=== PATIENT | male | born 1950 | race Caucasian/White ===

== ENCOUNTER → 2016-06-30 | Outpatient (CLI) | payer MEDICARE, OTHER ==
--- NOTE | 2016-06-30 12:24 | XR ---
EXAMINATION TYPE: XR lumbosacral spine min 4V DATE OF EXAM: 06/30/2016 12:19 PM CLINICAL HISTORY: pain COMPARISON: NONE TECHNIQUE: Frontal, lateral, and oblique images of the lumbar spine are obtained. FINDINGS: There are 5 lumbar type vertebral bodies identified. The lumbar spine shows satisfactory alignment without evidence of acute fracture or dislocation. Vertebral body heights are within normal limits. Severe multilevel degenerative disc disease and spondylosis. Severe facet joint arthropathy identified. The overlying soft tissue appears unremarkable. IMPRESSION: No acute fracture or dislocation is seen in the lumbar spine.ICD 10 NO FRACTURE, INITIAL EVALUATION
--- NOTE | 2016-06-30 12:29 | XR ---
EXAMINATION TYPE: XR abdomen 1V DATE OF EXAM: 06/30/2016 12:19 PM COMPARISON: NONE HISTORY: Pain TECHNIQUE: Single supine KUB image of the abdomen is obtained FINDINGS: Small bowel demonstrates no evidence for dilatation or air fluid levels. Gas and fecal material is seen in non-distended colon. No convincing evidence for pneumoperitoneum. No unusual calcifications. The lung bases are clear. The osseous structures are intact. IMPRESSION: 1. Overall nonobstructive bowel gas pattern.
== END ==
LOC: RADXRMAIN 11:07
PROVIDERS: ATTEND Family Medicine
DX: R10.9 Unspecified abdominal pain (principal); M54.5 Low back pain
CPT/HCPCS: 72110; 74000

== ENCOUNTER 2018-11-04 21:49 | Inpatient (IN) | payer MEDICARE, OTHER ==
[2018-11-04] MEDS ORDERED: SODIUM CHLORIDE 0.9% 500 ML 500 ML IV STA (22:54)
--- NOTE | 2018-11-04 23:24 | ED ---
Nausea/Vomiting/Diarrhea HPI - General Source: patient Mode of arrival: ambulatory Limitations: no limitations <Jo Santamaria - Last Filed: 11/05/18 03:33> <Tash Sanchez - Last Filed: 11/05/18 05:34> - General Chief complaint: Nausea/Vomiting/Diarrhea Stated complaint: Abd pain Time Seen by Provider: 11/04/18 22:04 - History of Present Illness Initial comments: 68-year-old male patient presents to the emergency department today for evaluation of diarrhea 2 weeks. Patient states that he has been having watery bowel movements several times daily. He states that sometimes they are red in color. Denies any melena. States that whenever he eats he will immediately get abdominal cramping and have a bowel movement. Patient denies any fever or chills with this. Denies any nausea or vomiting. He denies any recent travel or sick contacts. He denies any antibiotic use in the last 2-3 months. Patient states he did stop taking his medications when the pain and diarrhea started. Does have history of colon cancer with bowel resection. He is also reporting increased swelling to the bilateral lower extremities with redness and skin changes. Patient denies any recent rash, shortness breath, chest pain, back pain, numbness, tingling, dizziness, weakness, hematuria, dysuria, urinary urgency, urinary frequency, headache, visual changes, or any other complaints. (Jo Santamaria) - Related Data Home Medications Medication Instructions Recorded Confirmed amLODIPine [Norvasc] 10 mg PO DAILY 09/03/13 11/04/18 Pravastatin Sodium [Pravachol] 20 mg PO HS 03/21/14 11/04/18 Sodium Bicarbonate Tab 650 mg PO BID 07/15/14 11/04/18 Calcium Acetate [Phoslo] 667 mg PO TID 11/04/18 11/04/18 Carvedilol [Coreg] 6.25 mg PO BID 11/04/18 11/04/18 Ergocalciferol (Vitamin D2) 50,000 unit PO Q7D 11/04/18 11/04/18 [Drisdol] Timolol 0.5% Ophth Soln [Timoptic 1 drop BOTH EYES BID 11/04/18 11/04/18 0.5% Ophth Soln] Torsemide [Demadex] 20 mg PO DAILY 11/04/18 11/04/18 glipiZIDE XL [Glucotrol Xl] 5 mg PO BID-W/MEALS 11/04/18 11/04/18 Allergies Allergy/AdvReac Type Severity Reaction Status Date / Time No Known Allergies Allergy Verified 11/04/18 22:40 Review of Systems ROS Other: All systems not noted in ROS Statement are negative. <Jo Santamaria - Last Filed: 11/05/18 03:33> ROS Other: All systems not noted in ROS Statement are negative. <Tash Sanchez - Last Filed: 11/05/18 05:34> ROS Statement: Those systems with pertinent positive or pertinent negative responses have been documented in the HPI. Past Medical History Past Medical History: Diabetes Mellitus, Eye Disorder, Hyperlipidemia, Hypertension, Skin Disorder Additional Past Medical History / Comment(s): wound center pt-wound rt leg , dry skin. Allergic rhinitis History of Any Multi-Drug Resistant Organisms: None Reported Additional Past Surgical History / Comment(s): nasal/sinus. Laser treatment for diabetic retinopathy Past Anesthesia/Blood Transfusion Reactions: No Reported Reaction Past Psychological History: No Psychological Hx Reported Smoking Status: Never smoker Past Alcohol Use History: Occasional Past Drug Use History: None Reported - Past Family History Father Family Medical History: No Reported History <Jo Santamaria - Last Filed: 11/05/18 03:33> General Exam Limitations: no limitations General appearance: alert, in no apparent distress, other (Physical well-developed, well-nourished adult male patient in no acute distress. Vital signs upon presentation are temperature 98.8F, pulse 69, respirations 18, blood pressure 186/79, pulse ox 100% on room air.) Eye exam: Present: normal appearance, PERRL, EOMI. Absent: scleral icterus, conjunctival injection, periorbital swelling ENT exam: Present: normal exam, normal oropharynx, mucous membranes moist Respiratory exam: Present: normal lung sounds bilaterally. Absent: respiratory distress, wheezes, rales, rhonchi, stridor Cardiovascular Exam: Present: regular rate, normal rhythm, normal heart sounds. Absent: systolic murmur, diastolic murmur, rubs, gallop, clicks GI/Abdominal exam: Present: soft, normal bowel sounds. Absent: distended, tenderness, guarding, rebound, rigid Extremities exam: Present: full ROM, normal capillary refill, other (Patient has significant bilateral lower extremity edema, 3+ pitting. There is skin thickening and erythema consistent with chronic venous stasis.). Absent: normal inspection, tenderness, pedal edema, joint swelling, calf tenderness Neurological exam: Present: alert, oriented X3, CN II-XII intact Psychiatric exam: Present: normal affect, normal mood Skin exam: Present: warm, dry, intact, normal color. Absent: rash <Jo Santamaria - Last Filed: 11/05/18 03:33> Course Vital Signs 11/04/18 11/04/18 11/05/18 22:00 22:55 01:00 Temperature 98.8 F Pulse Rate 69 92 86 Respiratory 18 18 19 Rate Blood Pressure 186/79 168/76 164/97 O2 Sat by Pulse 100 100 99 Oximetry 11/05/18 11/05/18 11/05/18 02:00 03:17 03:34 Temperature 98.5 F 98.5 F Pulse Rate 82 91 95 Respiratory 19 18 18 Rate Blood Pressure 172/92 163/74 167/80 O2 Sat by Pulse 100 100 100 Oximetry 11/05/18 11/05/18 11/05/18 04:03 04:04 05:00 Temperature 98.6 F 98.7 F 98.5 F Pulse Rate 89 88 Respiratory 17 19 Rate Blood Pressure 185/81 193/92 O2 Sat by Pulse 100 98 Oximetry 11/05/18 05:28 Temperature Pulse Rate 91 Respiratory 19 Rate Blood Pressure 169/107 O2 Sat by Pulse 98 Oximetry Medical Decision Making - Lab Data Result diagrams: 11/05/18 01:12 11/05/18 00:57 - EKG Data -: EKG Interpreted by Ks <Jo Santamaria - Last Filed: 11/05/18 03:33> - Lab Data Result diagrams: 11/05/18 01:12 11/05/18 00:57 <Tash Sanchez - Last Filed: 11/05/18 05:34> - Medical Decision Making 68-year-old male patient presented to the emergency department today for evaluation of diarrhea 2 weeks. Patient states that he has been having intermittent crampy abdominal pain with this. His symptoms worsened after eating. Physical examination revealed a soft nontender abdomen. 3+ pitting edema to the bilateral lower extremities. Labs reviewed and did reveal elevated white blood cell count at 12.8, hemoglobin 4.9, potassium 6.8, BUN 89, creatinine 5.15. EKG showed normal sinus rhythm with a widened QRS, consistent with previous EKG. Patient was given IV fluid bolus. Potassium correction measures were initiated with insulin, dextrose, calcium, and Kayexalate. I did discuss findings and results with the patient, he does agree to receive blood transfusion. Vital signs are stable. He denies any dizziness but does feel generally weak. He'll be admitted to the hospital for blood transfusion, further monitoring. (Jo Santamaria) I personally saw and evaluated this patient. This is a chronically ill 68-year-old gentleman who stop taking all medications approximately one month ago because he reports they upset his stomach. Today the patient has what appears to be acute on chronic anemia, microcytic anemia with hemoglobin of only 4.9, I performed a rectal examination patient is stool guaiac positive though he doesn't have any significant active bleeding while in the emergency department. Patient's also noted be in acute renal failure. During my evaluation the patient's primary complaint was that he was itchy and has been for a week or 2. I suspect this is due to uremia. The patient is hemodynamically stable in fact he is hypertensive, no tachycardia. At this time I do not feel the patient requires ICU level care and is stable for admission to the floor for IV fluids, blood transfusion, repeat labs in the morning. (Tash Sanchez) - Lab Data Lab Results 11/05/18 11/05/18 11/05/18 Range/Units 00:57 01:12 01:54 WBC 12.8 H (3.8-10.6) k/uL RBC 1.99 L (4.30-5.90) m/uL Hgb 4.9 L* (13.0-17.5) gm/dL Hct 17.6 L* (39.0-53.0) % MCV 88.4 (80.0-100.0) fL MCH 24.4 L (25.0-35.0) pg MCHC 27.6 L (31.0-37.0) g/dL RDW 19.9 H (11.5-15.5) % Plt Count 491 H (150-450) k/uL Neutrophils % 80 % Lymphocytes % 10 % Monocytes % 4 % Eosinophils % 5 % Basophils % 0 % Neutrophils # 10.2 H (1.3-7.7) k/uL Lymphocytes # 1.3 (1.0-4.8) k/uL Monocytes # 0.5 (0-1.0) k/uL Eosinophils # 0.6 (0-0.7) k/uL Basophils # 0.0 (0-0.2) k/uL Hypochromasia Marked Anisocytosis Slight Sodium 142 (137-145) mmol/L Potassium 6.8 H* (3.5-5.1) mmol/L Chloride 117 H (98-107) mmol/L Carbon Dioxide 14 L (22-30) mmol/L Anion Gap 11 mmol/L BUN 89 H (9-20) mg/dL Creatinine 5.15 H (0.66-1.25) mg/dL Est GFR (CKD-EPI)AfAm 12 (>60 ml/min/1.73 sqM) Est GFR (CKD-EPI)NonAf 11 (>60 ml/min/1.73 sqM) Glucose 149 H (74-99) mg/dL Calcium 8.6 (8.4-10.2) mg/dL Total Bilirubin 0.2 (0.2-1.3) mg/dL AST 13 L (17-59) U/L ALT 9 L (21-72) U/L Alkaline Phosphatase 89 (38-126) U/L Total Protein 5.9 L (6.3-8.2) g/dL Albumin 2.9 L (3.5-5.0) g/dL Amylase 39 (30-110) U/L Lipase 271 (23-300) U/L Blood Type O Positive Blood Type Confirm Blood Type Recheck CABO Indicated Antibody Screen NEGATIVE Crossmatch See Detail Spec Expiration Date 11/08/2018235311/05/18 Range/Units 02:07 WBC (3.8-10.6) k/uL RBC (4.30-5.90) m/uL Hgb (13.0-17.5) gm/dL Hct (39.0-53.0) % MCV (80.0-100.0) fL MCH (25.0-35.0) pg MCHC (31.0-37.0) g/dL RDW (11.5-15.5) % Plt Count (150-450) k/uL Neutrophils % % Lymphocytes % % Monocytes % % Eosinophils % % Basophils % % Neutrophils # (1.3-7.7) k/uL Lymphocytes # (1.0-4.8) k/uL Monocytes # (0-1.0) k/uL Eosinophils # (0-0.7) k/uL Basophils # (0-0.2) k/uL Hypochromasia Anisocytosis Sodium (137-145) mmol/L Potassium (3.5-5.1) mmol/L Chloride (98-107) mmol/L Carbon Dioxide (22-30) mmol/L Anion Gap mmol/L BUN (9-20) mg/dL Creatinine (0.66-1.25) mg/dL Est GFR (CKD-EPI)AfAm (>60 ml/min/1.73 sqM) Est GFR (CKD-EPI)NonAf (>60 ml/min/1.73 sqM) Glucose (74-99) mg/dL Calcium (8.4-10.2) mg/dL Total Bilirubin (0.2-1.3) mg/dL AST (17-59) U/L ALT (21-72) U/L Alkaline Phosphatase (38-126) U/L Total Protein (6.3-8.2) g/dL Albumin (3.5-5.0) g/dL Amylase (30-110) U/L Lipase (23-300) U/L Blood Type Blood Type Confirm O Positive Blood Type Recheck Antibody Screen Crossmatch Spec Expiration Date - EKG Data EKG Comments: EKG obtained at [facility] to 16 shows normal sinus rhythm with a widened QRS complex, ventricular rate is 87, CA interval 168, QRS duration 134, QTC 400, QTC 481. (Jo Santamaria) Disposition Decision to Admit Reason: Admit from EC Decision Date: 11/05/18 Decision Time: 03:10 <Jo Santamaria - Last Filed: 11/05/18 03:33> <Tash Sanchez - Last Filed: 11/05/18 05:34> Clinical Impression: Acute on chronic renal failure, Anemia, GI bleed, Hyperkalemia Disposition: ADMITTED IP TO THIS HOSP Condition: Serious
[2018-11-05 01:31] LABS: Anisocytosis Slight; Basophils % (A) 0 %; Eosinophils # (A) 0.6 k/uL (0-0.7); Eosinophils % (A) 5 %; Hypochromasia Marked; Lymphocytes # (A) 1.3 k/uL (1.0-4.8); Lymphocytes % (A) 10 %; MCH 24.4 pg (25.0-35.0); MCHC 27.6 g/dL (31.0-37.0); MCV 88.4 fL (80.0-100.0); Mean Platelet Volume 7.1; Monocytes # (A) 0.5 k/uL (0-1.0); Monocytes % (A) 4 %; Neutrophils # (A) 10.2 k/uL (1.3-7.7); Neutrophils % (A) 80 %; Platelet Count 491 k/uL (150-450); RBC 1.99 m/uL (4.30-5.90); RDW 19.9 % (11.5-15.5); WBC 12.8 k/uL (3.8-10.6)
[2018-11-05 01:33] LABS: HCT 17.6 % (39.0-53.0); HGB 4.9 gm/dL (13.0-17.5)
[2018-11-05 01:33] LABS: Albumin 2.9 g/dL (3.5-5.0); Calcium 8.6 mg/dL (8.4-10.2); Total Bilirubin 0.2 mg/dL (0.2-1.3); Total Protein 5.9 g/dL (6.3-8.2)
[2018-11-05 01:37] LABS: Potassium 6.8 mmol/L (3.5-5.1)
[2018-11-05] MEDS ORDERED: SODIUM CHLORIDE 0.9% 1,000 ML IV ONE (01:38)
[2018-11-05] MEDS ORDERED: CALCIUM GLUCONATE 1 GM in SODIUM CHLORIDE 0.9% 100 ML IVPB ONE (01:38)
[2018-11-05] MEDS ORDERED: INSULIN REGULAR 100 UNIT/ML VIAL IV ONE (01:38)
[2018-11-05] MEDS ORDERED: DEXTROSE 10 % IN WATER 250 ML IV STA (01:38)
[2018-11-05] MEDS ORDERED: SODIUM POLYSTYRENE SULFONATE 15 GM/60 ML BOTTLE PO STA (01:40)
[2018-11-05] MEDS ORDERED: NALOXONE 0.4 MG/ML 1 ML VIAL IV PRN (02:53)
[2018-11-05] MEDS ORDERED: ACETAMINOPHEN TAB 325 MG TAB PO PRN (02:53)
[2018-11-05 03:46] LABS: Amorphous Sediment,Urine Rare /hpf; Appearance,Urine Clear (Clear); Bilirubin,Urine Negative (Negative); Blood,Urine Negative (Negative); Color,Urine Light Yellow; Glucose,Urine (UA) Negative (Negative); Granular Casts,Urine 108 /lpf (0); Ketones,Urine Negative (Negative); Leukocyte Esterase,Urine Negative (Negative); Mucus,Urine Rare /hpf; Nitrite,Urine Negative (Negative); Protein,Urine 1+ (Negative); RBC,Urine 1 /hpf (0-5); Specific Gravity,Urine 1.011 (1.001-1.035); Urobilinogen,Urine <2.0 mg/dL (<2.0); WBC,Urine <1 /hpf (0-5)
[2018-11-05 04:24] LABS: Glucose,Whole Blood 197 mg/dL (75-99)
[2018-11-05] MEDS ORDERED: METOPROLOL TARTRATE 5 MG/5 ML VIAL IVP ONE (05:33)
[2018-11-05] MEDS ORDERED: FUROSEMIDE 10 MG/ML 4 ML VIAL IV STA (07:52)
[2018-11-05 09:16] LABS: Glucose,Whole Blood 158 mg/dL (75-99)
[2018-11-05 09:38] LABS: Albumin 2.6 g/dL (3.5-5.0); Calcium 8.5 mg/dL (8.4-10.2); Total Bilirubin 0.4 mg/dL (0.2-1.3); Total Protein 5.5 g/dL (6.3-8.2)
[2018-11-05 09:43] LABS: Anisocytosis Slight; Basophils % (A) 0 %; Eosinophils # (A) 0.7 k/uL (0-0.7); Eosinophils % (A) 5 %; HCT 21.9 % (39.0-53.0); Hypochromasia Marked; Lymphocytes # (A) 1.4 k/uL (1.0-4.8); Lymphocytes % (A) 11 %; MCH 27.2 pg (25.0-35.0); MCHC 31.4 g/dL (31.0-37.0); MCV 86.5 fL (80.0-100.0); Mean Platelet Volume 7.6; Monocytes # (A) 0.5 k/uL (0-1.0); Monocytes % (A) 4 %; Neutrophils % (A) 78 %; Platelet Count 413 k/uL (150-450); Poikilocytosis Slight; RBC 2.53 m/uL (4.30-5.90); RDW 18.5 % (11.5-15.5); WBC 12.8 k/uL (3.8-10.6)
[2018-11-05 09:45] LABS: Potassium 6.3 mmol/L (3.5-5.1)
[2018-11-05 09:47] LABS: HGB 6.9 gm/dL (13.0-17.5)
--- NOTE | 2018-11-05 12:59 | P.CONS ---
History of Present Illness - Reason for Consult Consult date: 11/05/18 anemia Requesting physician: Sheri Ortiz - Chief Complaint rectal bleeding - History of Present Illness 68-year-old gentleman with a history of diabetes mellitus lower extremity wounds chronic kidney disease hypertension hyperlipidemia colon carcinoma with resection presents with 2 week history of blood-tinged red diarrhea, hematemesis and lower extremity edema. Admission hemoglobin 4.9. MCV 88. Platelet 491. Potassium 6.8. BUN 89. Creatinine 5.1. White count 12.8. Received 2 units of blood current hemoglobin 6.9. Patient states he stopped taking his home medications secondary to indigestion and upset stomach. Denies hematemesis or melena. Afebrile. Recent CBCs to review however hemoglobin in 2015 was 11.7. MCV 87. Denies ETOH no ASA or NSAIDS. No history of EGD/colonoscopy. Review of Systems RConstitutional: Denies fever, chills, sweats, weight gain, or loss. HEENT: Negative for migraines, blurred vision or loss, earaches, drainage, tinnitus, oral mucosal lesions, dysphagia, or odynophagia. Cardiac: Negative for chest pain, arrhythmias, or palpitation. Respiratory: Negative for shortness of breath, hemoptysis, cough, or sputum production. Gastrointestinal: See HPI for pertinent findings. Genitourinary: Negative for hematuria, urgency, frequency, polyuria, dysuria, or penile discharge. Musculoskeletal: Negative for muscle aches, swelling, arthritis, and arthralgias. Neurologic: Negative for stroke or TIA. Endocrine: Negative for thyroid problems. Skin: Negative for rash or itching. Psychiatric: Negative history for depression and anxiety Past Medical History Past Medical History: Cancer, Diabetes Mellitus, Eye Disorder, Hyperlipidemia, Hypertension, Renal Disease, Skin Disorder Additional Past Medical History / Comment(s): NIDDM type II, neuropathy bilateral feet, pt states he has current sores on bilateral lower legs/feet, past diabetic ulcers/venous stasis ulcers legs/feet and L foot cellulitis with 5th toe osteomyelitis in 2014, diabetic retinopathy bilaterally with surgery, bilateral glaucoma, chronic kidney disease, chronic anemia, past colon cancer with surgery-pt cannot recall if he had chemo/radiation, bronchitis, past R elbow fracture, allergic rhinitis. History of Any Multi-Drug Resistant Organisms: None Reported Past Surgical History: Bowel Resection Additional Past Surgical History / Comment(s): Colon resection, laser treatment for diabetic retinopathy, sinus surgery, R anterior lower leg wound debridement. Past Anesthesia/Blood Transfusion Reactions: No Reported Reaction Smoking Status: Never smoker - Past Family History Father Family Medical History: No Reported History Additional Family Medical History / Comment(s): Father was healthy Mother Family Medical History: No Reported History Additional Family Medical History / Comment(s): Mother was healthy Medications and Allergies Home Medications Medication Instructions Recorded Confirmed Type amLODIPine [Norvasc] 10 mg PO DAILY 09/03/13 11/04/18 History Pravastatin Sodium [Pravachol] 20 mg PO HS 03/21/14 11/04/18 History Sodium Bicarbonate Tab 650 mg PO BID 07/15/14 11/04/18 History Calcium Acetate [Phoslo] 667 mg PO TID 11/04/18 11/04/18 History Carvedilol [Coreg] 6.25 mg PO BID 11/04/18 11/04/18 History Ergocalciferol (Vitamin D2) 50,000 unit PO Q7D 11/04/18 11/04/18 History [Drisdol] Timolol 0.5% Ophth Soln [Timoptic 1 drop BOTH EYES BID 11/04/18 11/04/18 History 0.5% Ophth Soln] Torsemide [Demadex] 20 mg PO DAILY 11/04/18 11/04/18 History glipiZIDE XL [Glucotrol Xl] 5 mg PO BID-W/MEALS 11/04/18 11/04/18 History Allergies Allergy/AdvReac Type Severity Reaction Status Date / Time No Known Allergies Allergy Verified 11/04/18 22:40 Physical Exam Vitals: Vital Signs Temp Pulse Resp BP Pulse Ox 11/05/18 08:47 98.6 F 86 20 161/67 99 11/05/18 08:45 98.6 F 86 20 161/67 99 11/05/18 08:00 81 29 H 171/79 99 11/05/18 07:00 98.6 F 71 18 174/82 99 11/05/18 06:30 98.3 F 82 19 172/81 99 11/05/18 06:20 98.7 F 71 18 172/77 98 11/05/18 05:28 91 19 169/107 98 11/05/18 05:00 98.5 F 88 19 193/92 98 11/05/18 04:04 98.7 F 11/05/18 04:03 98.6 F 89 17 185/81 100 11/05/18 03:34 98.5 F 95 18 167/80 100 11/05/18 03:17 98.5 F 91 18 163/74 100 11/05/18 02:00 82 19 172/92 100 11/05/18 01:00 86 19 164/97 99 11/04/18 22:55 92 18 168/76 100 11/04/18 22:00 98.8 F 69 18 186/79 100 Intake and Output 11/04/18 11/05/18 11/05/18 22:59 06:59 14:59 Intake Total 310 310 Output Total 650 Balance 310 -340 Intake: Blood Product 310 310 Rc As-1 Unit 0 310 [id number] Rc As-1 Unit 310 [id number] Output: Urine 650 Other: Weight 90.718 kg General appearance: The patient is alert, oriented, in no acute distress. HET: Head is normocephalic and atraumatic. Pupils are equal and reactive. Oropharynx is clear without lesions. Neck: Supple without lymphadenopathy. Trachea midline. Heart: S1 S2. Regular rate and rhythm. Lungs: No crackles or wheezes are heard. Abdomen: Soft, nontender, nondistended with bowel sounds. No peritoneal signs. No palpable organomegaly or masses. Extremities: Normal skin color and turgor. No cyanosis, rash, ulceration, clubbing, or edema. Radial and pedal pulses are 2/4 bilaterally. Neurological: No focal deficits. Strength and sensation are grossly intact. Results CBC & Chem 7: 11/05/18 09:10 11/05/18 09:10 Labs: Abnormal Lab Results - Last 24 Hours (Table) 11/05/18 11/05/18 11/05/18 Range/Units 00:57 01:12 01:54 WBC 12.8 H (3.8-10.6) k/uL RBC 1.99 L (4.30-5.90) m/uL Hgb 4.9 L* (13.0-17.5) gm/dL Hct 17.6 L* (39.0-53.0) % MCH 24.4 L (25.0-35.0) pg MCHC 27.6 L (31.0-37.0) g/dL RDW 19.9 H (11.5-15.5) % Plt Count 491 H (150-450) k/uL Neutrophils # 10.2 H (1.3-7.7) k/uL Potassium 6.8 H* (3.5-5.1) mmol/L Chloride 117 H (98-107) mmol/L Carbon Dioxide 14 L (22-30) mmol/L BUN 89 H (9-20) mg/dL Creatinine 5.15 H (0.66-1.25) mg/dL Glucose 149 H (74-99) mg/dL POC Glucose (mg/dL) (75-99) mg/dL AST 13 L (17-59) U/L ALT 9 L (21-72) U/L Total Protein 5.9 L (6.3-8.2) g/dL Albumin 2.9 L (3.5-5.0) g/dL Urine Protein (Negative) Amorphous Sediment (None) /hpf Urine Mucus (None) /hpf Crossmatch See Detail 11/05/18 11/05/18 11/05/18 Range/Units 03:34 04:22 09:09 WBC (3.8-10.6) k/uL RBC (4.30-5.90) m/uL Hgb (13.0-17.5) gm/dL Hct (39.0-53.0) % MCH (25.0-35.0) pg MCHC (31.0-37.0) g/dL RDW (11.5-15.5) % Plt Count (150-450) k/uL Neutrophils # (1.3-7.7) k/uL Potassium (3.5-5.1) mmol/L Chloride (98-107) mmol/L Carbon Dioxide (22-30) mmol/L BUN (9-20) mg/dL Creatinine (0.66-1.25) mg/dL Glucose (74-99) mg/dL POC Glucose (mg/dL) 197 H 158 H (75-99) mg/dL AST (17-59) U/L ALT (21-72) U/L Total Protein (6.3-8.2) g/dL Albumin (3.5-5.0) g/dL Urine Protein 1+ H (Negative) Amorphous Sediment Rare H (None) /hpf Urine Mucus Rare H (None) /hpf Crossmatch 11/05/18 11/05/18 Range/Units 09:10 09:10 WBC 12.8 H (3.8-10.6) k/uL RBC 2.53 L (4.30-5.90) m/uL Hgb 6.9 L* D (13.0-17.5) gm/dL Hct 21.9 L (39.0-53.0) % MCH (25.0-35.0) pg MCHC (31.0-37.0) g/dL RDW 18.5 H (11.5-15.5) % Plt Count (150-450) k/uL Neutrophils # 10.0 H (1.3-7.7) k/uL Potassium 6.3 H* (3.5-5.1) mmol/L Chloride 117 H (98-107) mmol/L Carbon Dioxide 17 L (22-30) mmol/L BUN 79 H (9-20) mg/dL Creatinine 4.97 H (0.66-1.25) mg/dL Glucose 144 H (74-99) mg/dL POC Glucose (mg/dL) (75-99) mg/dL AST 15 L (17-59) U/L ALT 16 L (21-72) U/L Total Protein 5.5 L (6.3-8.2) g/dL Albumin 2.6 L (3.5-5.0) g/dL Urine Protein (Negative) Amorphous Sediment (None) /hpf Urine Mucus (None) /hpf Crossmatch Assessment and Plan (1) GI bleed Narrative/Plan: 68-year-old gentleman with a history of chronic kidney disease diabetes hypertension hyperlipidemia colon cancer with resection presents with 2 week history of red blood tinged bowel movements increased upset stomach hematemesis with discontinuance of his home medications for at least a month with underlying normocytic hypochromic anemia component of acute blood loss. Current Visit: Yes Status: Acute Code(s): K92.2 - GASTROINTESTINAL HEMORRHAGE, UNSPECIFIED SNOMED Code(s): 57734232 (2) History of colon cancer Current Visit: Yes Status: Acute Code(s): Z85.038 - PERSONAL HISTORY OF MALIGNANT NEOPLASM OF LARGE INTESTINE SNOMED Code(s): 039750311 (3) Acute on chronic renal failure Current Visit: Yes Status: Acute Code(s): N17.9 - ACUTE KIDNEY FAILURE, UNSPECIFIED; N18.9 - CHRONIC KIDNEY DISEASE, UNSPECIFIED SNOMED Code(s): 334872139 Plan: 1. EGD colonoscopy advised patient declined. Patient was to eat regular diet agitated. CBC every 6 hours blood transfusions as indicated keep hemoglobin greater than 7. Clear liquids. Protonix 40 mg daily. The city weighmaster has discussed the risks, benefits and alternative therapies for the above-mentioned procedure and for both sedation/analgesia as well as necessary blood product administration, if indicated, as they pertain to this patient. The patient has indicated understanding and acceptance of the risks and procedures discussed. Thank you for this kind referral and the opportunity to participate in the care of your patient. This consultation was discussed with Dr. Smart. The impr ession and plan of care have been directed as dictated.
--- NOTE | 2018-11-05 15:14 | P.HPIM ---
History of Present Illness 68-year-old male came in with complaints of diarrhea multiple episodes of GI bleed has been going on for about a week and patient doesn't like to go to hospital because of which she didn't come to hospital patient was also complaining of crampy abdominal pain with bowel movement. Patient denied any hematemesis. Patient denied any melanotic stools. Patient stopping his medications because he believes he is on too many medications. Patient does have history of chronic kidney disease with baseline creatinine of 1.6 and patient came in his creatinine went up to 5.15 with potassium of 6.8 patient is on torsemide unknown whether patient has heart failure history although chest x- ray showed significant bilateral pleural effusions although patient was pretty status is fine at this time because of which I'm not giving him any Lasix in between blood transfusions patient is also receiving IV fluids with bicarbonate. Patient decided capsulate IV insulin potassium has come down to 6.3 patient does have non-anion on a gap and anion gap metabolic acidosis from hyperchloremia and uremia respectively Review of Systems REVIEW OF SYSTEMS: CONSTITUTIONAL: No fever, no malaise, no fatigue. HEENT: No recent visual problems or hearing problems. Denied any sore throat. CARDIOVASCULAR: No chest pain, orthopnea, PND, no palpitations, no syncope. PULMONARY: No shortness of breath, no cough, no hemoptysis. GASTROINTESTINAL: As mentioned above NEUROLOGICAL: No headaches, no weakness, no numbness. HEMATOLOGICAL: Denies any bleeding or petechiae. GENITOURINARY: Denies any burning micturition, frequency, or urgency. MUSCULOSKELETAL/RHEUMATOLOGICAL: Denies any joint pain, swelling, or any muscle pain. ENDOCRINE: Denies any polyuria or polydipsia. The rest of the 14-point review of systems is negative. Past Medical History Past Medical History: Cancer, Diabetes Mellitus, Eye Disorder, Hyperlipidemia, Hypertension, Renal Disease, Skin Disorder Additional Past Medical History / Comment(s): NIDDM type II, neuropathy bilat eral feet, pt states he has current sores on bilateral lower legs/feet, past diabetic ulcers/venous stasis ulcers legs/feet and L foot cellulitis with 5th toe osteomyelitis in 2014, diabetic retinopathy bilaterally with surgery, bilateral glaucoma, chronic kidney disease, chronic anemia, past colon cancer with surgery-pt cannot recall if he had chemo/radiation, bronchitis, past R elbow fracture, allergic rhinitis. History of Any Multi-Drug Resistant Organisms: None Reported Past Surgical History: Bowel Resection Additional Past Surgical History / Comment(s): Colon resection, laser treatment for diabetic retinopathy, sinus surgery, R anterior lower leg wound debridement. Past Anesthesia/Blood Transfusion Reactions: No Reported Reaction Smoking Status: Never smoker - Past Family History Father Family Medical History: No Reported History Additional Family Medical History / Comment(s): Father was healthy Mother Family Medical History: No Reported History Additional Family Medical History / Comment(s): Mother was healthy Medications and Allergies Home Medications Medication Instructions Recorded Confirmed Type amLODIPine [Norvasc] 10 mg PO DAILY 09/03/13 11/04/18 History Pravastatin Sodium [Pravachol] 20 mg PO HS 03/21/14 11/04/18 History Sodium Bicarbonate Tab 650 mg PO BID 07/15/14 11/04/18 History Calcium Acetate [Phoslo] 667 mg PO TID 11/04/18 11/04/18 History Carvedilol [Coreg] 6.25 mg PO BID 11/04/18 11/04/18 History Ergocalciferol (Vitamin D2) 50,000 unit PO Q7D 11/04/18 11/04/18 History [Drisdol] Timolol 0.5% Ophth Soln [Timoptic 1 drop BOTH EYES BID 11/04/18 11/04/18 History 0.5% Ophth Soln] Torsemide [Demadex] 20 mg PO DAILY 11/04/18 11/04/18 History glipiZIDE XL [Glucotrol Xl] 5 mg PO BID-W/MEALS 11/04/18 11/04/18 History Allergies Allergy/AdvReac Type Severity Reaction Status Date / Time No Known Allergies Allergy Verified 11/04/18 22:40 Physical Exam Vitals: Vital Signs Temp Pulse Resp BP Pulse Ox 11/05/18 14:49 98.7 F 74 18 188/86 96 11/05/18 14:00 75 21 170/79 97 11/05/18 13:00 180/159 99 11/05/18 12:00 67 173/81 100 11/05/18 11:00 70 161/98 100 11/05/18 10:00 81 178/81 100 11/05/18 09:00 24 161/67 11/05/18 08:47 98.6 F 86 20 161/67 99 11/05/18 08:45 98.6 F 86 20 161/67 99 11/05/18 08:00 73 24 161/83 98 11/05/18 07:00 98.6 F 71 18 172/81 99 11/05/18 06:30 98.3 F 82 19 172/81 99 11/05/18 06:20 98.7 F 71 18 172/77 98 11/05/18 05:28 91 19 169/107 98 11/05/18 05:00 98.5 F 88 19 193/92 98 11/05/18 04:04 98.7 F 11/05/18 04:03 98.6 F 89 17 185/81 100 11/05/18 03:34 98.5 F 95 18 167/80 100 11/05/18 03:17 98.5 F 91 18 163/74 100 11/05/18 02:00 82 19 172/92 100 11/05/18 01:00 86 19 164/97 99 11/04/18 22:55 92 18 168/76 100 11/04/18 22:00 98.8 F 69 18 186/79 100 Intake and Output 11/05/18 11/05/18 11/05/18 06:59 14:59 22:59 Intake Total 310 1310 Output Total 1800 Balance 310 -490 Intake: Amount of Fluid Infused ( 1000 ml) Blood Product 310 310 Rc As-1 Unit 0 310 [id number] Rc As-1 Unit 310 [id number] Output: Urine 1800 PHYSICAL EXAMINATION: GENERAL: The patient is alert and oriented x3, not in any acute distress. Well developed, well nourished. HEENT: Pupils are round and equally reacting to light. EOMI. No scleral icterus. Does have conjunctival pallor. Normocephalic, atraumatic. No pharyngeal erythema. No thyromegaly. CARDIOVASCULAR: S1 and S2 present. No murmurs, rubs, or gallops. PULMONARY: Chest is clear to auscultation, no wheezing or crackles. ABDOMEN: Soft, nontender, nondistended, normoactive bowel sounds. No palpable organomegaly. MUSCULOSKELETAL: No joint swelling or deformity. EXTREMITIES: No cyanosis, clubbing, does have bilateral pedal edema which appears to be chronic venous stasis. NEUROLOGICAL: Gross neurological examination did not reveal any focal deficits. SKIN: No rashes. Results CBC & Chem 7: 11/05/18 09:10 11/05/18 09:10 Labs: Abnormal Lab Results - Last 24 Hours (Table) 11/05/18 11/05/18 11/05/18 Range/Units 00:57 01:12 01:54 WBC 12.8 H (3.8-10.6) k/uL RBC 1.99 L (4.30-5.90) m/uL Hgb 4.9 L* (13.0-17.5) gm/dL Hct 17.6 L* (39.0-53.0) % MCH 24.4 L (25.0-35.0) pg MCHC 27.6 L (31.0-37.0) g/dL RDW 19.9 H (11.5-15.5) % Plt Count 491 H (150-450) k/uL Neutrophils # 10.2 H (1.3-7.7) k/uL Potassium 6.8 H* (3.5-5.1) mmol/L Chloride 117 H (98-107) mmol/L Carbon Dioxide 14 L (22-30) mmol/L BUN 89 H (9-20) mg/dL Creatinine 5.15 H (0.66-1.25) mg/dL Glucose 149 H (74-99) mg/dL POC Glucose (mg/dL) (75-99) mg/dL AST 13 L (17-59) U/L ALT 9 L (21-72) U/L Total Protein 5.9 L (6.3-8.2) g/dL Albumin 2.9 L (3.5-5.0) g/dL Urine Protein (Negative) Amorphous Sediment (None) /hpf Urine Mucus (None) /hpf Crossmatch See Detail 11/05/18 11/05/18 11/05/18 Range/Units 03:34 04:22 09:09 WBC (3.8-10.6) k/uL RBC (4.30-5.90) m/uL Hgb (13.0-17.5) gm/dL Hct (39.0-53.0) % MCH (25.0-35.0) pg MCHC (31.0-37.0) g/dL RDW (11.5-15.5) % Plt Count (150-450) k/uL Neutrophils # (1.3-7.7) k/uL Potassium (3.5-5.1) mmol/L Chloride (98-107) mmol/L Carbon Dioxide (22-30) mmol/L BUN (9-20) mg/dL Creatinine (0.66-1.25) mg/dL Glucose (74-99) mg/dL POC Glucose (mg/dL) 197 H 158 H (75-99) mg/dL AST (17-59) U/L ALT (21-72) U/L Total Protein (6.3-8.2) g/dL Albumin (3.5-5.0) g/dL Urine Protein 1+ H (Negative) Amorphous Sediment Rare H (None) /hpf Urine Mucus Rare H (None) /hpf Crossmatch 11/05/18 11/05/18 Range/Units 09:10 09:10 WBC 12.8 H (3.8-10.6) k/uL RBC 2.53 L (4.30-5.90) m/uL Hgb 6.9 L* D (13.0-17.5) gm/dL Hct 21.9 L (39.0-53.0) % MCH (25.0-35.0) pg MCHC (31.0-37.0) g/dL RDW 18.5 H (11.5-15.5) % Plt Count (150-450) k/uL Neutrophils # 10.0 H (1.3-7.7) k/uL Potassium 6.3 H* (3.5-5.1) mmol/L Chloride 117 H (98-107) mmol/L Carbon Dioxide 17 L (22-30) mmol/L BUN 79 H (9-20) mg/dL Creatinine 4.97 H (0.66-1.25) mg/dL Glucose 144 H (74-99) mg/dL POC Glucose (mg/dL) (75-99) mg/dL AST 15 L (17-59) U/L ALT 16 L (21-72) U/L Total Protein 5.5 L (6.3-8.2) g/dL Albumin 2.6 L (3.5-5.0) g/dL Urine Protein (Negative) Amorphous Sediment (None) /hpf Urine Mucus (None) /hpf Crossmatch Thrombosis Risk Factor Assmnt - Choose All That Apply Any of the Below Risk Factors Present?: Yes Each Factor Represents 1 point: Obesity (BMI >25) Other Risk Factors: Yes Each Risk Factor Represents 2 Points: Age 61-74 years, Malignancy Other congenital or acquired thrombophilia - If yes, enter type in comment: No Thrombosis Risk Factor Assessment Total Risk Factor Score: 5 Thrombosis Risk Factor Assessment Level: High Risk Assessment and Plan Plan: -Acute blood loss anemia from lower GI bleed most probably patient declined upper GI endoscopy and coloscopy. Will transfuse 2 more units of blood. Patient was a valid by gastroenterology. Patient had history of colon cancer with colonic resection in the past -Acute renal failure: Secondary to prerenal azotemia from GI bleed. Patient does have chronic kidney disease from diabetic nephropathy patient has stage III chronic kidney disease. Patient present creatinine is 4.9 him down from 5.4. -Hyperkalemia secondary to acute renal failure and diuretics did contributed to his renal failure which are being held in spite of bilateral pleural effusions patient may have congestive heart failure although no echocardiogram is available at this time I'll obtain a BNP on him patient does not have any significantly elevated JVD respiratory status is okay. Patient is on bicarbonate drip which will be continued -metabolic acidosis: Patient has both non-anion gap and anionic gap metabolic acidosis from my hyperchloremia and uremia as mentioned above and this is secondary to acute renal failure. -Type 2 diabetes mellitus noncompliant with medication patient will be started on sliding scale insulin hold off on oral hyperglycemic agents -Diabetic retinopathy diabetic neuropathy -Hyperlipidemia -Patient is already on Protonix will hold off on any DVT prophylaxis because of his severe acute GI bleed.
--- NOTE | 2018-11-05 15:24 | XR ---
EXAMINATION TYPE: XR chest 1V DATE OF EXAM: 11/05/2018 COMPARISON: 07/15/2014 HISTORY: 68-year-old male CHF TECHNIQUE: Single frontal view of the chest is obtained. FINDINGS: Heart moderately enlarged. There is a moderate right pleural effusion with underlying opacity. Mild d iffuse interstitial and vascular prominence. IMPRESSION: 1. Correlate for CHF with mild pulmonary vascular congestion. 2. Moderate sized right pleural effusion with adjacent atelectasis and/or consolidation.
[2018-11-05 16:47] LABS: Glucose,Whole Blood 166 mg/dL (75-99)
[2018-11-05 17:12] LABS: Potassium 6.4 mmol/L (3.5-5.1)
[2018-11-05] MEDS: PANTOPRAZOLE 40 MG/10 ML VIAL IV SCH (17:26)
[2018-11-05] MEDS: CARVEDILOL 6.25 MG TAB PO SCH ×2 (17:29→19:29)
[2018-11-05] MEDS: CALCIUM ACETATE 667 MG CAP PO SCH (17:29)
[2018-11-05] MEDS: INSULIN ASPART (NovoLOG) 100 UNIT/ML VIAL SQ SCH ×2 (17:30→21:36)
[2018-11-05] MEDS: DEXTROSE 5% IN WATER 1,000 ML with SODIUM BICARB (1 MEQ/ML) 150 ML IV SCH (19:28)
--- NOTE | 2018-11-05 19:53 | CONS ---
CONSULTATION REASON FOR CONSULTATION: Renal failure and hyperkalemia. HISTORY OF PRESENT ILLNESS: Patient is a 68-year-old male with history of end-stage renal disease and NKF stage 5 with previous creatinine with baseline creatinine about 3-4 mg/dL. The patient has refused renal replacement therapy previously. He he did, however, state that he will think about it if absolutely indicated. This admission patient was admitted with complaints of having blood in his stool. His hemoglobin was 4.9 g/dL in the emergency room. The patient received 2 units packed RBCs. Potassium was elevated at 6.8. The patient denies any nausea or vomiting. He states he is tired of seeing doctors. PAST MEDICAL HISTORY: CKD stage 5 secondary to nephrosclerosis, hyperlipidemia, hypertension, anemia of chronic disease, CKD mineral bone disorder, refusing to take any vitamin D as outpatient. SOCIAL HISTORY: Negative for smoking. Patient lives alone. No history of drug abuse or alcohol abuse. MEDICATIONS: Prior to admission included Pravachol, PhosLo, Norvasc, Coreg, Demadex, Glucotrol. ALLERGIES: None. PHYSICAL EXAMINATION: On examination, patient is currently comfortable. He denies any significant complaints. The blood pressure was 161/67, heart rate 86 per minute. He is afebrile. Examination of the heart S1, S2. Examination of lungs, bilateral breath sounds are heard. Abdomen is soft, obese, nontender. Examination of lower extremities shows chronic skin changes. Edema 1+ bilaterally. LABS SHOW: Hemoglobin 6.9, white cell count 12.8, sodium 141, potassium 6.3, BUN 79, serum creatinine 4.97. UA shows 1+ protein. ASSESSMENT: 1. Chronic kidney disease stage IV to 5, baseline creatinine of about 3.5-4 mg/dL secondary to nephrosclerosis and diabetic nephropathy. Patient is not too keen on renal replacement therapy as outpatient. However, he has not completely refused it as well. 2. Acute kidney injury secondary to severe anemia. Renal function slightly improved. We will continue to monitor. No need for emergent dialysis at this point. We will continue to evaluate on a daily basis. 3. Hyperkalemia associated with acute kidney injury and ongoing GI bleed and metabolic acidosis status post IV treatment as well as Kayexalate. 4. Gastrointestinal bleed being transfused packed RBCs. 5. Metabolic acidosis secondary to renal failure. 6. Chronic kidney disease mineral bone disorder. PLAN: Lasix 40 mg IV push x1. Start the patient on low-dose bicarb drip to help with the hyperkalemia. Repeat potassium this evening and follow up with GI regarding the gastrointestinal bleed. We will assess on a daily basis regarding need for renal replacement therapy. I will also maintain the patient on Aranesp. Thank you for this consultation. We will continue to follow the patient with you during this hospitalization. MMODL / IJN: [id number] /
[2018-11-05 21:15] LABS: Glucose,Whole Blood 192 mg/dL (75-99)
[2018-11-05] MEDS: PRAVASTATIN SODIUM 20 MG TAB PO SCH (21:36)
[2018-11-05] MEDS: TIMOLOL 0.5% OPHTH DROPS 5 ML BTL BOTH EYES SCH (21:37)
[2018-11-06 06:18] LABS: Glucose,Whole Blood 136 mg/dL (75-99)
[2018-11-06] MEDS: INSULIN ASPART (NovoLOG) 100 UNIT/ML VIAL SQ SCH ×4 (06:22→21:27)
[2018-11-06] MEDS: CALCIUM ACETATE 667 MG CAP PO SCH ×3 (06:23→17:26)
[2018-11-06] MEDS: CARVEDILOL 6.25 MG TAB PO SCH ×2 (06:24→17:27)
[2018-11-06 07:47] LABS: Anisocytosis Slight; Basophils % (A) 0 %; Eosinophils # (A) 0.7 k/uL (0-0.7); Eosinophils % (A) 6 %; Hypochromasia Marked; Lymphocytes # (A) 1.2 k/uL (1.0-4.8); Lymphocytes % (A) 10 %; MCH 27.5 pg (25.0-35.0); MCHC 30.9 g/dL (31.0-37.0); MCV 89.2 fL (80.0-100.0); Mean Platelet Volume 7.6; Monocytes # (A) 0.5 k/uL (0-1.0); Monocytes % (A) 5 %; Neutrophils # (A) 9.1 k/uL (1.3-7.7); Neutrophils % (A) 78 %; Platelet Count 362 k/uL (150-450); Poikilocytosis Slight; RBC 2.91 m/uL (4.30-5.90); RDW 17.7 % (11.5-15.5); WBC 11.7 k/uL (3.8-10.6)
[2018-11-06 08:02] LABS: Calcium 8.3 mg/dL (8.4-10.2); Magnesium 1.8 mg/dL (1.6-2.3); Phosphorus 4.4 mg/dL (2.5-4.5)
[2018-11-06] MEDS: PANTOPRAZOLE 40 MG/10 ML VIAL IV SCH (08:48)
[2018-11-06] MEDS: TIMOLOL 0.5% OPHTH DROPS 5 ML BTL BOTH EYES SCH ×2 (08:48→20:55)
[2018-11-06 11:14] VITALS: BMI 30.7
[2018-11-06 11:57] LABS: Glucose,Whole Blood 173 mg/dL (75-99)
[2018-11-06] MEDS ORDERED: SODIUM BICARB 8.4% 50 ML SYR (1 MEQ/ML) IV STA (11:57)
[2018-11-06] MEDS: DEXTROSE 5% IN WATER 1,000 ML with SODIUM BICARB (1 MEQ/ML) 150 ML IV SCH (12:15)
[2018-11-06] MEDS ORDERED: FUROSEMIDE 10 MG/ML 4 ML VIAL IV STA (13:58)
--- NOTE | 2018-11-06 13:59 | P.PN ---
Subjective Progress Note Date: 11/06/18 Principal diagnosis: GI bleeding No further bleeding. Hemoglobin 8. BUN 74. Creatinine 4.4. MCV 89. Platelet 362. Objective - Vital Signs Vital signs: Vital Signs Temp 98.1 F 11/06/18 11:39 Pulse 65 11/06/18 11:39 Resp 20 11/06/18 11:39 BP 150/70 11/06/18 11:39 Pulse Ox 98 11/06/18 11:39 Intake & Output 11/05/18 11/06/18 11/06/18 18:59 06:59 18:59 Intake Total 1310 310 120 Output Total 1802 706 325 Balance -492 -396 -205 Weight 94.5 kg 94.5 kg Intake: Amount of Fluid Infused ( 1000 ml) Oral 120 Blood Product 310 310 Rc As-1 Unit 0 [id number] Rc As-1 Unit 310 [id number] Rc As-1 Unit 0 310 [id number] Output: Urine 1800 700 325 Stool 2 6 Other: Voiding Method Bedside Commode Urinal # Voids 1 1 - Exam General appearance: The patient is alert, oriented, in no acute distress. HET: Head is normocephalic and atraumatic. Pupils are equal and reactive. Oropharynx is clear without lesions. Neck: Supple without lymphadenopathy. Trachea midline. Heart: S1 S2. Regular rate and rhythm. Lungs: No crackles or wheezes are heard. Abdomen: Soft, nontender, nondistended with bowel sounds. No peritoneal signs. No palpable organomegaly or masses. Extremities: Normal skin color and turgor. No cyanosis, rash, ulceration, clubbing, or edema. Radial and pedal pulses are 2/4 bilaterally. Neurological: No focal deficits. Strength and sensation are grossly intact. - Labs CBC & Chem 7: 11/06/18 07:26 11/06/18 07:26 Labs: Abnormal Lab Results - Last 24 Hours (Table) 11/05/18 11/05/18 11/05/18 Range/Units 01:54 16:03 16:45 WBC (3.8-10.6) k/uL RBC (4.30-5.90) m/uL Hgb (13.0-17.5) gm/dL Hct (39.0-53.0) % MCHC (31.0-37.0) g/dL RDW (11.5-15.5) % Neutrophils # (1.3-7.7) k/uL Potassium 6.4 H* (3.5-5.1) mmol/L Chloride 116 H (98-107) mmol/L Carbon Dioxide 16 L (22-30) mmol/L BUN (9-20) mg/dL Creatinine (0.66-1.25) mg/dL Glucose (74-99) mg/dL POC Glucose (mg/dL) 166 H (75-99) mg/dL Calcium (8.4-10.2) mg/dL Crossmatch See Detail 11/05/18 11/06/18 11/06/18 Range/Units 21:14 06:16 07:26 WBC 11.7 H (3.8-10.6) k/uL RBC 2.91 L (4.30-5.90) m/uL Hgb 8.0 L (13.0-17.5) gm/dL Hct 26.0 L (39.0-53.0) % MCHC 30.9 L (31.0-37.0) g/dL RDW 17.7 H (11.5-15.5) % Neutrophils # 9.1 H (1.3-7.7) k/uL Potassium (3.5-5.1) mmol/L Chloride (98-107) mmol/L Carbon Dioxide (22-30) mmol/L BUN (9-20) mg/dL Creatinine (0.66-1.25) mg/dL Glucose (74-99) mg/dL POC Glucose (mg/dL) 192 H 136 H (75-99) mg/dL Calcium (8.4-10.2) mg/dL Crossmatch 11/06/18 11/06/18 Range/Units 07:26 11:56 WBC (3.8-10.6) k/uL RBC (4.30-5.90) m/uL Hgb (13.0-17.5) gm/dL Hct (39.0-53.0) % MCHC (31.0-37.0) g/dL RDW (11.5-15.5) % Neutrophils # (1.3-7.7) k/uL Potassium 6.0 H (3.5-5.1) mmol/L Chloride 117 H (98-107) mmol/L Carbon Dioxide 15 L (22-30) mmol/L BUN 74 H (9-20) mg/dL Creatinine 4.43 H (0.66-1.25) mg/dL Glucose 150 H (74-99) mg/dL POC Glucose (mg/dL) 173 H (75-99) mg/dL Calcium 8.3 L (8.4-10.2) mg/dL Crossmatch Assessment and Plan (1) GI bleed Narrative/Plan: 68-year-old gentleman with a history of chronic kidney disease diabetes hypertension hyperlipidemia colon cancer with resection presents with 2 week history of red blood tinged bowel movements increased upset stomach hematemesis with discontinuance of his home medications for at least a month with underlying normocytic hypochromic anemia component of acute blood loss. Current Visit: Yes Status: Acute Code(s): K92.2 - GASTROINTESTINAL HEMORRHAGE, UNSPECIFIED SNOMED Code(s): 48282102 (2) History of colon cancer Current Visit: Yes Status: Acute Code(s): Z85.038 - PERSONAL HISTORY OF MALIGNANT NEOPLASM OF LARGE INTESTINE SNOMED Code(s): 797426578 (3) Acute on chronic renal failure Current Visit: Yes Status: Acute Code(s): N17.9 - ACUTE KIDNEY FAILURE, UNSPECIFIED; N18.9 - CHRONIC KIDNEY DISEASE, UNSPECIFIED SNOMED Code(s): 51699 3006 Plan: 1. Patient is agreeable for EGD colonoscopy will proceed tomorrow. CBC monitoring. Protonix 40 mg daily. Clear liquid diet. Iron indices pending. The media coordinator has discussed the risks, benefits and alternative therapies for the above-mentioned procedure and for both sedation/analgesia as well as necessary blood product administration, if indicated, as they pertain to this patient. The patient has indicated understanding and acceptance of the risks and procedures discussed. Assessment and plan a care discussed with Dr. Smart
[2018-11-06] MEDS ORDERED: BISACODYL 5 MG TABLET.DR PO STA (14:00)
[2018-11-06] MEDS ORDERED: POLYETHYLENE GLYCOL LYTES SOLN 4,000 ML SOLN.RECON PO ONE (14:00)
--- NOTE | 2018-11-06 15:37 | P.PN ---
Subjective 59-year-old male was admitted with GI bleed patient will undergo upper GI endoscopy and lower GI endoscopy and patient was transfused 4 units of blood and patient's hemoglobin is 8 at this time and patient doesn't have any more GI bleed. Potassium still remains high and patient is receiving capsulate patient does have chronic kidney disease stage IV dialysis was discussed in the past patient declined at that time now patient says he'll consider it patient does have elevated JVD fluid overload with crackles on lung exam and there is significant fluid overload on the chest x-ray although patient clinically appears well obtain a BNP which is elevated a lot of pain echocardiogram discussed with nephrology and decided to start him on Lasix 40 mg IV twice a day patient was using Demadex at home Constitutional: Denied any fatigue denied any fever. Cardio vascular: denied any chest pain, palpitations Gastrointestinal denied any nausea vomiting Pulmonary: Denied any shortness of breath cough Neurologic denied any new focal deficits All inpatient medications were reviewed and appropriate changes in these medications as dictated in the interval history and assessment and plan. Objective - Vital Signs Vital signs: Vital Signs Temp 98.1 F 11/06/18 11:39 Pulse 65 11/06/18 11:39 Resp 20 11/06/18 11:39 BP 150/70 11/06/18 11:39 Pulse Ox 98 11/06/18 11:39 Intake & Output 11/05/18 11/06/18 11/06/18 18:59 06:59 18:59 Intake Total 1310 310 420 Output Total 1802 706 650 Balance -492 -396 -230 Weight 94.5 kg 94.5 kg Intake: Amount of Fluid Infused ( 1000 ml) Oral 420 Blood Product 310 310 Rc As-1 Unit 0 [id number] Rc As-1 Unit 310 [id number] Rc As-1 Unit 0 310 [id number] Output: Urine 1800 700 650 Stool 2 6 Other: Voiding Method Bedside Commode Urinal # Voids 1 1 # Bowel Movements 1 - Exam PHYSICAL EXAMINATION: GENERAL: The patient is alert and oriented x3, not in any acute distress. Well developed, well nourished. HEENT: Pupils are round and equally reacting to light. EOMI. No scleral icterus. Does have conjunctival pallor. Normocephalic, atraumatic. No pharyngeal erythema. No thyromegaly. CARDIOVASCULAR: S1 and S2 present. No murmurs, rubs, or gallops. Does appear to have JVD PULMONARY: Bibasilar crackles ABDOMEN: Soft, nontender, nondistended, normoactive bowel sounds. No palpable organomegaly. MUSCULOSKELETAL: No joint swelling or deformity. EXTREMITIES: No cyanosis, clubbing, does have bilateral pedal edema which appears to be chronic venous stasis. NEUROLOGICAL: Gross neurological examination did not reveal any focal deficits. SKIN: No rashes. - Labs CBC & Chem 7: 11/06/18 07:26 11/06/18 07:26 Labs: Abnormal Lab Results - Last 24 Hours (Table) 11/05/18 11/05/18 11/05/18 Range/Units 01:54 16:03 16:45 WBC (3.8-10.6) k/uL RBC (4.30-5.90) m/uL Hgb (13.0-17.5) gm/dL Hct (39.0-53.0) % MCHC (31.0-37.0) g/dL RDW (11.5-15.5) % Neutrophils # (1.3-7.7) k/uL Potassium 6.4 H* (3.5-5.1) mmol/L Chloride 116 H (98-107) mmol/L Carbon Dioxide 16 L (22-30) mmol/L BUN (9-20) mg/dL Creatinine (0.66-1.25) mg/dL Glucose (74-99) mg/dL POC Glucose (mg/dL) 166 H (75-99) mg/dL Calcium (8.4-10.2) mg/dL Crossmatch See Detail 11/05/18 11/06/18 11/06/18 Range/Units 21:14 06:16 07:26 WBC 11.7 H (3.8-10.6) k/uL RBC 2.91 L (4.30-5.90) m/uL Hgb 8.0 L (13.0-17.5) gm/dL Hct 26.0 L (39.0-53.0) % MCHC 30.9 L (31.0-37.0) g/dL RDW 17.7 H (11.5-15.5) % Neutrophils # 9.1 H (1.3-7.7) k/uL Potassium (3.5-5.1) mmol/L Chloride (98-107) mmol/L Carbon Dioxide (22-30) mmol/L BUN (9-20) mg/dL Creatinine (0.66-1.25) mg/dL Glucose (74-99) mg/dL POC Glucose (mg/dL) 192 H 136 H (75-99) mg/dL Calcium (8.4-10.2) mg/dL Crossmatch 11/06/18 11/06/18 Range/Units 07:26 11:56 WBC (3.8-10.6) k/uL RBC (4.30-5.90) m/uL Hgb (13.0-17.5) gm/dL Hct (39.0-53.0) % MCHC (31.0-37.0) g/dL RDW (11.5-15.5) % Neutrophils # (1.3-7.7) k/uL Potassium 6.0 H (3.5-5.1) mmol/L Chloride 117 H (98-107) mmol/L Carbon Dioxide 15 L (22-30) mmol/L BUN 74 H (9-20) mg/dL Creatinine 4.43 H (0.66-1.25) mg/dL Glucose 150 H (74-99) mg/dL POC Glucose (mg/dL) 173 H (75-99) mg/dL Calcium 8.3 L (8.4-10.2) mg/dL Crossmatch Assessment and Plan Plan: -Acute blood loss anemia from lower GI bleed most probably patient will undergo upper GI endoscopy and coloscopy. Hemoglobin 8 now after 4 units of blood transfusion -Acute renal failure: Secondary to prerenal azotemia from GI bleed. Patient does have chronic kidney disease from diabetic nephropathy patient does has trace face chronic kidney disease, on dialysis was discussed in the past and now by nephrology, patient declined until now and agreeable now to try hemodialysis -Hyperkalemia secondary to acute renal failure, chronic kidney disease a -Possible congestive heart failure ejection fraction is not known will obtain echocardiogram patient appears to be an exacerbation and was started on Lasix as mentioned above -metabolic acidosis: Patient has both non-anion gap and anionic gap metabolic acidosis from my hyperchloremia and uremia as mentioned above and this is secondary to acute renal failure. -Type 2 diabetes mellitus noncompliant with medication patient will be started on sliding scale insulin hold off on oral hyperglycemic agents -Diabetic retinopathy diabetic neuropathy -Hyperlipidemia -Patient is already on Protonix will hold off on any DVT prophylaxis because of his severe acute GI bleed.
[2018-11-06 16:48] LABS: Glucose,Whole Blood 183 mg/dL (75-99)
--- NOTE | 2018-11-06 17:04 | PN ---
PROGRESS NOTE Patient is seen for followup for chronic kidney disease and acute kidney injury. He was admitted to the hospital with GI bleed. Patient was also hyperkalemic. Potassium was 6.8 on initial admission. It is down to 6.0. The patient has not had any active bleeding. This morning he is upset that he is not allowed to eat and is maintained on a liquid diet. The patient has refused endoscopies. On examination, blood pressure this morning 150/70, heart rate 65 per minute. He is afebrile. EXAMINATION OF THE HEART: S1 and S2. EXAMINATION OF LUNGS: Bilateral breath sounds are heard. ABDOMEN: Soft, non-tender, obese. Examination of lower extremities shows edema 1+ bilaterally with chronic skin changes. SENIOR MEDICAL DIRECTOR exam is grossly intact. Labs show sodium 139, potassium 6.0, chloride 117. CO2 is 15, BUN 74, serum creatinine 4.43, hemoglobin 8.0 g/dL. ASSESSMENT: 1. Acute kidney injury secondary to severe anemia, currently improved. 2. Chronic kidney disease, NKF stage V, secondary to nephrosclerosis. Baseline creatinine around 3 to 4 mg/dL. 3. Anemia secondary to gastrointestinal bleed, status post packed RBCs transfusion. 4. Hyperkalemia associated with acute kidney injury, gastrointestinal bleed and acidosis, currently improving. 5. Metabolic acidosis associated with renal failure. Patient was on bicarb drip, which was held last night. I will resume the IV bicarb. 6. Hypertension, currently controlled. 7. Chronic kidney disease mineral bone disorder, maintained on PhosLo. PLAN: Resume IV bicarb. Lasix 40 mg IV push x1 again today. Advance diet if okay with GI. No need for renal replacement therapy at this time. The patient will also be maintained on oral sodium bicarb. I am not sure if he will take it, though. MMODL / IJN: [id number] /
[2018-11-06] MEDS: FUROSEMIDE 10 MG/ML 4 ML VIAL IV SCH (20:55)
[2018-11-06] MEDS: SODIUM BICARBONATE TAB 650 MG TAB PO SCH (20:55)
[2018-11-06 21:14] LABS: Glucose,Whole Blood 129 mg/dL (75-99)
[2018-11-07 02:50] LABS: Iron Saturation 8.22 (15.00-50.00)
[2018-11-07 06:08] LABS: Glucose,Whole Blood 132 mg/dL (75-99)
[2018-11-07] MEDS: INSULIN ASPART (NovoLOG) 100 UNIT/ML VIAL SQ SCH ×4 (06:11→21:11)
[2018-11-07 06:49] LABS: Anisocytosis Slight; HCT 26.7 % (39.0-53.0); HGB 8.4 gm/dL (13.0-17.5); Hypochromasia Moderate; MCH 27.5 pg (25.0-35.0); MCHC 31.4 g/dL (31.0-37.0); MCV 87.7 fL (80.0-100.0); Mean Platelet Volume 7.2; Platelet Count 357 k/uL (150-450); Poikilocytosis Slight; RBC 3.05 m/uL (4.30-5.90); RDW 17.5 % (11.5-15.5); WBC 8.9 k/uL (3.8-10.6)
[2018-11-07 07:03] LABS: Calcium 7.7 mg/dL (8.4-10.2); Potassium 5.5 mmol/L (3.5-5.1)
--- NOTE | 2018-11-07 09:13 | ECHOF ---
Referral Reason:CHF MEASUREMENTS -------- HEIGHT: 177.8 cm WEIGHT: 94.3 kg BP: RVIDd: 3.1 cm (< 3.3) IVSd: 1.1 cm (0.6 - 1.1) LVIDd: 5.3 cm (3.9 - 5.3) LVPWd: 1.2 cm (0.6 - 1.1) IVSs: 1.7 cm LVIDs: 2.3 cm LVPWs: 2.5 cm LAESV Index (A-L): 29.37 ml/m Ao Diam: 3.5 cm (2.0 - 3.7) AV Cusp: 2.1 cm (1.5 - 2.6) LA Diam: 3.4 cm (2.7 - 3.8) MV EXCURSION: 14.577 mm (> 18.000) MV EF SLOPE: 38 mm/s (70 - 150) EPSS: 0.6 cm MV E Get: 1.08 m/s MV DecT: 192 ms MV A Get: 0.39 m/s MV E/A Ratio: 2.77 RAP: 5.00 mmHg RVSP: 33.11 mmHg FINDINGS -------- Sinus rhythm. This was a technically difficult study with suboptimal views. The left ventricular size is normal. There is mild concentric left ventricular hypertrophy. Overa ll left ventricular systolic function is normal with, an EF between 55 - 60 %. The right ventricle is normal in size. The left atrial size is normal. Normal LA size by volume 22+/-6 ml/m2. The right atrial size is normal. Lumason used The aortic valve is trileaflet and appears structurally normal. The mitral valve is normal. The mitral valve leaflets are mildly thickened. There is trace mitral regurgitation. Trace tricuspid regurgitation present. Right ventricular systolic pressure is normal at < 35 mmHg. There is no pulmonic regurgitation present. The aortic root size is normal. IVC Not well visulized. There is a small, generalized pericardial effusion present. CONCLUSIONS -------- 1. Sinus rhythm. 2. This was a technically difficult study with suboptimal views. 3. The left ventricular size is normal. 4. There is mild concentric left ventricular hypertrophy. 5. Overall left ventricular systolic function is normal with, an EF between 55 - 60 %. 6. The right ventricle is normal in size. 7. The left atrial size is normal. 8. Normal LA size by volume 22+/-6 ml/m2. 9. The right atrial size is normal. 10. Lumason used 11. The aortic valve is trileaflet and appears structurally normal. 12. The mitral valve is normal. 13. The mitral valve leaflets are mildly thickened. 14. There is trace mitral regurgitation. 15. Trace tricuspid regurgitation present. 16. Right ventricular systolic pressure is normal at < 35 mmHg. 17. There is no pulmonic regurgitation present. 18. The aortic root size is normal. 19. IVC Not well visulized. 20. There is a small, generalized pericardial effusion present. BEHAVIORIST: Isela Pitts RDCS
[2018-11-07] MEDS: PANTOPRAZOLE 40 MG/10 ML VIAL IV SCH (09:36)
[2018-11-07] MEDS: FUROSEMIDE 10 MG/ML 4 ML VIAL IV SCH ×2 (09:36→19:57)
[2018-11-07] MEDS: TIMOLOL 0.5% OPHTH DROPS 5 ML BTL BOTH EYES SCH ×2 (09:36→19:57)
[2018-11-07] MEDS: CARVEDILOL 6.25 MG TAB PO SCH ×2 (09:49→17:09)
[2018-11-07 11:59] LABS: Glucose,Whole Blood 117 mg/dL (75-99)
[2018-11-07] MEDS ORDERED: PROPOFOL 10 MG/ML 20 ML VIAL IV ONE (12:45)
[2018-11-07] MEDS ORDERED: IV FLUID CONTINUATION 1,000 ML IV ONE (12:48)
--- NOTE | 2018-11-07 13:02 | P.PCN ---
Date of Procedure: 11/07/18 Procedure(s) Performed: BRIEF HISTORY: Patient is a 68-year-old, pleasant, male, admitted hospital with severe symptomatic anemia and hemoglobin of 4.9 requiring 3 units of blood transition. Also had some a hematemesis and the blood-tinged stool.. He was scheduled for an upper endoscopy as well as colonoscopy today, however patient refused to take the prep. His and scheduled for an upper endoscopy. PROCEDURE PERFORMED: Esophagogastroduodenoscopy and biopsy. PREOPERATIVE DIAGNOSIS: Severe anemia and hematemesis. IV sedation per anesthesia. PROCEDURE: After informed consent was obtained, the patient was brought into the endoscopy unit. IV sedation was administered by Anesthesia under continuous monitoring. Initially the Olympus GIF-140 video endoscope was inserted into the mouth. Esophagus intubated without any difficulty. It was gradually advanced into the stomach and duodenum and carefully examined. In the bulb of the duodenum there was a 3-4 cm large deep ulcer with no active bleeding. Margins were somewhat raised and hence biopsies were done from the margin of the ulcer. The scope at this time was withdrawn to the stomach, adequately insufflated with air, and upon careful examination, mucosa of the antrum had gastritis and biopsies were done from this area. The, body, cardia and the fundus appeared normal. The scope was then withdrawn into the esophagus. The GE junction was located at 39 cm from the incisors. The esophagus appeared normal. There were no erosions or ulcerations seen and the patient tolerated the procedure well. IMPRESSION: 1. Large duodenal bulbar ulcer measuring at least 3-4 cm with no active bleeding. 2. Mild antral gastritis. RECOMMENDATIONS: The findings of this examination were discussed with the patient as well as his family. He will be continued on Protonix 40 mg twice daily and was advised to avoid NSAIDs. Diet will be advanced as tolerated..
--- NOTE | 2018-11-07 13:03 | P.PN ---
Subjective 59-year-old male was admitted with GI bleed patient will undergo upper GI endoscopy and lower GI endoscopy and patient was transfused 4 units of blood and patient's hemoglobin is 8 at this time and patient doesn't have any more GI bleed. Potassium still remains high and patient is receiving capsulate patient does have chronic kidney disease stage IV dialysis was discussed in the past patient declined at that time now patient says he'll consider it patient does have elevated JVD fluid overload with crackles on lung exam and there is significant fluid overload on the chest x-ray although patient clinically appears well obtain a BNP which is elevated a lot of pain echocardiogram discussed with nephrology and decided to start him on Lasix 40 mg IV twice a day patient was using Demadex at home 11/07/2018 Patient is undergoing upper GI endoscopy patient didn't have a good prep as he noncompliant with recommendations of using GoLYTELY, colonoscopy cannot be done although patient doesn't have any active clinical GI bleed. Patient is still hyponatremic I'm hoping that will improve with IV Lasix possibility of discharge tomorrow Constitutional: Denied any fatigue denied any fever. Cardio vascular: denied any chest pain, palpitations Gastrointestinal denied any nausea vomiting Pulmonary: Denied any shortness of breath cough Neurologic denied any new focal deficits All inpatient medications were reviewed and appropriate changes in these medications as dictated in the interval history and assessment and plan. Objective - Vital Signs Vital signs: Vital Signs Temp 98.4 F 11/07/18 12:00 Pulse 70 11/07/18 12:00 Resp 16 11/07/18 12:00 BP 150/70 11/07/18 12:00 Pulse Ox 97 11/07/18 12:00 Intake & Output 11/06/18 11/07/18 11/07/18 18:59 06:59 18:59 Intake Total 860 1150 100 Output Total 1150 125 Balance -290 1150 -25 Weight 94.5 kg 93.5 kg Intake: IV 100 Intake, IV Titration 550 Amount Dextrose 5% in Water 1, 550 000 ml @ 50 mls/hr IV . Q23H BRIAN with Sodium Bicarb (1 Meq/ml) 150 ml Rx#:[id number] Oral 860 600 Output: Urine 1150 125 Other: Voiding Method Bedside Commode Bedside Commode Urinal Urinal # Voids 1 2 # Bowel Movements 1 2 - Exam PHYSICAL EXAMINATION: GENERAL: The patient is alert and oriented x3, not in any acute distress. Well developed, well nourished. HEENT: Pupils are round and equally reacting to light. EOMI. No scleral icterus. Does have conjunctival pallor. Normocephalic, atraumatic. No pharyngeal erythema. No thyromegaly. CARDIOVASCULAR: S1 and S2 present. No murmurs, rubs, or gallops. Does appear to have JVD PULMONARY: Bibasilar crackles ABDOMEN: Soft, nontender, nondistended, normoactive bowel sounds. No palpable organomegaly. MUSCULOSKELETAL: No joint swelling or deformity. EXTREMITIES: No cyanosis, clubbing, does have bilateral pedal edema which appears to be chronic venous stasis. NEUROLOGICAL: Gross neurological examination did not reveal any focal deficits. SKIN: No rashes. - Labs CBC & Chem 7: 11/07/18 06:03 11/07/18 06:03 Labs: Abnormal Lab Results - Last 24 Hours (Table) 11/06/18 11/06/18 11/06/18 Range/Units 07:26 16:43 21:12 RBC (4.30-5.90) m/uL Hgb (13.0-17.5) gm/dL Hct (39.0-53.0) % RDW (11.5-15.5) % Sodium (137-145) mmol/L Potassium (3.5-5.1) mmol/L Carbon Dioxide (22-30) mmol/L BUN (9-20) mg/dL Creatinine (0.66-1.25) mg/dL Glucose (74-99) mg/dL POC Glucose (mg/dL) 183 H 129 H (75-99) mg/dL Calcium (8.4-10.2) mg/dL Iron 18 L (65-175) ug/dL TIBC 219 L (228-460) ug/dL Iron Saturation 8.22 L (15.00-50.00) 11/07/18 11/07/18 11/07/18 Range/Units 06:03 06:03 06:07 RBC 3.05 L (4.30-5.90) m/uL Hgb 8.4 L (13.0-17.5) gm/dL Hct 26.7 L (39.0-53.0) % RDW 17.5 H (11.5-15.5) % Sodium 136 L (137-145) mmol/L Potassium 5.5 H (3.5-5.1) mmol/L Carbon Dioxide 20 L (22-30) mmol/L BUN 65 H (9-20) mg/dL Creatinine 4.06 H (0.66-1.25) mg/dL Glucose 119 H (74-99) mg/dL POC Glucose (mg/dL) 132 H (75-99) mg/dL Calcium 7.7 L (8.4-10.2) mg/dL Iron (65-175) ug/dL TIBC (228-460) ug/dL Iron Saturation (15.00-50.00) 11/07/18 Range/Units 11:54 RBC (4.30-5.90) m/uL Hgb (13.0-17.5) gm/dL Hct (39.0-53.0) % RDW (11.5-15.5) % Sodium (137-145) mmol/L Potassium (3.5-5.1) mmol/L Carbon Dioxide (22-30) mmol/L BUN (9-20) mg/dL Creatinine (0.66-1.25) mg/dL Glucose (74-99) mg/dL POC Glucose (mg/dL) 117 H (75-99) mg/dL Calcium (8.4-10.2) mg/dL Iron (65-175) ug/dL TIBC (228-460) ug/dL Iron Saturation (15.00-50.00) Assessment and Plan Plan: -Acute blood loss anemia from lower GI bleed most probably patient will undergo upper GI endoscopy . Hemoglobin 8 now after 4 units of blood transfusion -Acute renal failure: Secondary to prerenal azotemia from GI bleed. Patient does have chronic kidney disease from diabetic nephropathy patient does has trace face chronic kidney disease, on dialysis was discussed in the past and now by nephrology, patient declined until now and agreeable now to try hemodialysis -Hyperkalemia secondary to acute renal failure, chronic kidney disease a -Possible congestive heart failure ejection fraction is not known will obtain echocardiogram patient appears to be an exacerbation and was started on Lasix as mentioned above -metabolic acidosis: Patient has both non-anion gap and anionic gap metabolic acidosis from my hyperchloremia and uremia as mentioned above and this is se condary to acute renal failure. -Type 2 diabetes mellitus noncompliant with medication patient will be started on sliding scale insulin hold off on oral hyperglycemic agents -Diabetic retinopathy diabetic neuropathy -Hyperlipidemia -Patient is already on Protonix will hold off on any DVT prophylaxis because of his severe acute GI bleed.
[2018-11-07] MEDS: CALCIUM ACETATE 667 MG CAP PO SCH ×3 (13:41→17:09)
--- NOTE | 2018-11-07 13:41 | XR ---
EXAMINATION TYPE: XR chest 1V DATE OF EXAM: 11/07/2018 COMPARISON: 11/05/2018 HISTORY: Congestive heart failure TECHNIQUE: Single frontal view of the chest is obtained. FINDINGS: There is a persistent moderate right pleural effusion and right basilar airspace disease. Left lung remains well aerated. Cardiomediastinal silhouette is enlarged as seen on the prior. No acu te osseous pathology. Resolution the previously seen pulmonary vascular congestion. IMPRESSION: Similar moderate pleural effusion and right basilar airspace disease. Pulmonary vascular congestion has resolved.
[2018-11-07] MEDS: SODIUM BICARBONATE TAB 650 MG TAB PO SCH ×2 (14:04→19:57)
[2018-11-07 16:44] LABS: Glucose,Whole Blood 155 mg/dL (75-99)
[2018-11-07] MEDS: PRAVASTATIN SODIUM 20 MG TAB PO SCH (19:57)
[2018-11-07 20:39] LABS: Glucose,Whole Blood 182 mg/dL (75-99)
[2018-11-08 06:26] LABS: Glucose,Whole Blood 160 mg/dL (75-99)
[2018-11-08] MEDS: CALCIUM ACETATE 667 MG CAP PO SCH ×2 (06:45→12:18)
[2018-11-08] MEDS: CARVEDILOL 6.25 MG TAB PO SCH (06:45)
[2018-11-08] MEDS: INSULIN ASPART (NovoLOG) 100 UNIT/ML VIAL SQ SCH ×2 (06:46→12:18)
[2018-11-08 07:00] LABS: Anisocytosis Slight; HCT 25.9 % (39.0-53.0); HGB 8.2 gm/dL (13.0-17.5); Hypochromasia Marked; MCH 27.7 pg (25.0-35.0); MCHC 31.7 g/dL (31.0-37.0); MCV 87.5 fL (80.0-100.0); Mean Platelet Volume 7.5; Platelet Count 313 k/uL (150-450); Poikilocytosis Slight; RBC 2.96 m/uL (4.30-5.90); RDW 17.2 % (11.5-15.5); WBC 8.6 k/uL (3.8-10.6)
[2018-11-08 07:05] LABS: Calcium 7.6 mg/dL (8.4-10.2); Potassium 5.6 mmol/L (3.5-5.1)
[2018-11-08] MEDS ORDERED: PANTOPRAZOLE 40 MG TABLET PO SCH (07:30)
[2018-11-08] MEDS ORDERED: SUCRALFATE 1 GM TAB PO SCH (08:15)
--- NOTE | 2018-11-08 08:35 | P.PN ---
Subjective Progress Note Date: 11/08/18 Principal diagnosis: GI bleeding Status post EGD findings of large duodenal ulcer 3-4 cm without active bleeding. Hemoglobin 8.2. No bleeding. Tolerating diet. Objective - Vital Signs Vital signs: Vital Signs Temp 98.3 F 11/07/18 20:00 Pulse 75 11/08/18 04:00 Resp 18 11/08/18 04:00 BP 174/79 11/08/18 04:00 Pulse Ox 98 11/08/18 04:00 Intake & Output 11/07/18 11/08/18 11/08/18 18:59 06:59 18:59 Intake Total 100 842 Output Total 1725 600 Balance -1625 242 Weight 92.6 kg Intake: IV 100 20 Invasive Line 2 20 Oral 822 Output: Urine 1725 600 Other: Voiding Method Bedside Commode Bedside Commode Urinal Urinal # Voids 1 3 # Bowel Movements 1 - Exam General appearance: The patient is alert, oriented, in no acute distress. HET: Head is normocephalic and atraumatic. Pupils are equal and reactive. Oropharynx is clear without lesions. Neck: Supple without lymphadenopathy. Trachea midline. Heart: S1 S2. Regular rate and rhythm. Lungs: No crackles or wheezes are heard. Abdomen: Soft, nontender, nondistended with bowel sounds. No peritoneal signs. No palpable organomegaly or masses. Extremities: Normal skin color and turgor. No cyanosis, rash, ulceration, clubbing, or edema. Radial and pedal pulses are 2/4 bilaterally. Neurological: No focal deficits. Strength and sensation are grossly intact. - Labs CBC & Chem 7: 11/08/18 06:21 11/08/18 06:21 Labs: Abnormal Lab Results - Last 24 Hours (Table) 11/07/18 11/07/18 11/07/18 Range/Units 11:54 16:37 20:37 RBC (4.30-5.90) m/uL Hgb (13.0-17.5) gm/dL Hct (39.0-53.0) % RDW (11.5-15.5) % Sodium (137-145) mmol/L Potassium (3.5-5.1) mmol/L Chloride (98-107) mmol/L Carbon Dioxide (22-30) mmol/L BUN (9-20) mg/dL Creatinine (0.66-1.25) mg/dL Glucose (74-99) mg/dL POC Glucose (mg/dL) 117 H 155 H 182 H (75-99) mg/dL Calcium (8.4-10.2) mg/dL 11/08/18 11/08/18 11/08/18 Range/Units 06:21 06:21 06:23 RBC 2.96 L (4.30-5.90) m/uL Hgb 8.2 L (13.0-17.5) gm/dL Hct 25.9 L (39.0-53.0) % RDW 17.2 H (11.5-15.5) % Sodium 136 L (137-145) mmol/L Potassium 5.6 H (3.5-5.1) mmol/L Chloride 108 H (98-107) mmol/L Carbon Dioxide 20 L (22-30) mmol/L BUN 68 H (9-20) mg/dL Creatinine 4.48 H (0.66-1.25) mg/dL Glucose 150 H (74-99) mg/dL POC Glucose (mg/dL) 160 H (75-99) mg/dL Calcium 7.6 L (8.4-10.2) mg/dL Microbiology - Last 24 Hours (Table) 11/07/18 18:28 Stool Culture - Preliminary Stool Assessment and Plan (1) Duodenal ulcer Current Visit: Yes Status: Acute Code(s): K26.9 - DUODENAL ULCER, UNSP ACUTE OR CHRONIC, W/O HEMOR OR PERF SNOMED Code(s): 70156958 (2) GI bleed Current Visit: Yes Status: Acute Code(s): K92.2 - GASTROINTESTINAL HEMORRHAGE, UNSPECIFIED SNOMED Code(s): 89405174 (3) History of colon cancer Current Visit: Yes Status: Acute Code(s): Z85.038 - PERSONAL HISTORY OF MALIGNANT NEOPLASM OF LARGE INTESTINE SNOMED Code(s): 833001378 (4) Acute on chronic renal failure Current Visit: Yes Status: Acute Code(s): N17.9 - ACUTE KIDNEY FAILURE, UNSPECIFIED; N18.9 - CHRONIC KIDNEY DISEASE, UNSPECIFIED SNOMED Code(s): 565674396 Plan: 1 Protonix 40 mg daily. Carafate 1 g before meals twice a day. CBC monitoring. Diet as tolerated. Return to office in 3-4 weeks for reevaluation. Assessment and plan a care discussed with Dr. Smart
[2018-11-08] MEDS ORDERED: FUROSEMIDE 20 MG TAB PO SCH (09:00)
[2018-11-08] MEDS ORDERED: DARBEPOETIN ALFA 60 MCG/0.3 ML SYRINGE SQ SCH (09:00)
[2018-11-08] MEDS: TIMOLOL 0.5% OPHTH DROPS 5 ML BTL BOTH EYES SCH (09:03)
[2018-11-08] MEDS: SODIUM BICARBONATE TAB 650 MG TAB PO SCH (09:03)
--- NOTE | 2018-11-08 09:18 | PN ---
PROGRESS NOTE DATE OF SERVICE: 11/07/2018 The patient was seen for followup for chronic kidney disease and acute kidney injury. He was admitted with GI bleed. Initially, patient had refused the endoscopy. However, he will be going down to endoscopy this afternoon. The patient's renal function has improved. He was acidotic. He was maintained on bicarb drip overnight. This morning he denies any significant complaints. PHYSICAL EXAMINATION: On examination, blood pressure is 149/69, heart rate 79 per minute. Patient is afebrile. EXAMINATION OF THE HEART: S1, S2. EXAMINATION OF LUNGS: Decreased breath sounds at the bases. Abdomen is soft, obese, nontender. Examination of the lower extremities shows chronic skin changes bilaterally; 1+ edema is noted bilaterally. SUPERVISOR FORMING DEPARTMENT exam is grossly intact. LABS: Labs show sodium 136, potassium 5.5, CO2 is 20, BUN 65, serum creatinine 4.06, hemoglobin 8.4 g/dL. ASSESSMENT: 1. Acute kidney injury secondary to severe anemia, currently nonoliguric and improving. 2. Chronic kidney disease NKF stage 5, secondary to nephrosclerosis and ischemic nephropathy. We will discuss renal replacement therapy again as outpatient. Previously patient had refused any kind of dialysis. However, at this time he seems agreeable to start when indicated. At this time, patient does not need to start renal replacement therapy. 3. Severe anemia secondary to gastrointestinal bleed, scheduled for endoscopy today. 4. Volume overload maintained on IV Lasix. 5. Severe metabolic acidosis, non gap secondary to renal failure, status post IV bicarb. 6. Hyperkalemia associated with acute kidney injury, metabolic acidosis, gastrointestinal bleed, currently improving. PLAN: DC IV bicarb. Maintain patient on oral sodium bicarb. Continue the IV Lasix for one more day. Maintain patient on Aranesp. Continue with phosphate binders in the form of PhosLo and repeat labs in a.m. MMODL / IJN: [id number] /
[2018-11-08 12:04] LABS: Glucose,Whole Blood 147 mg/dL (75-99)
--- NOTE | 2018-11-08 12:24 | PN ---
PROGRESS NOTE The patient is seen for followup for chronic kidney disease and acute kidney injury. He was admitted to the hospital with GI bleed. The patient has been transfused packed RBCs. Endoscopy from yesterday showed evidence of large duodenal ulcer. The patient wants to go home today. PHYSICAL EXAMINATION: On examination, blood pressure 151/76, heart rate 85 per minute. He is afebrile. EXAMINATION OF THE HEART: S1 and S2. EXAMINATION OF THE LUNGS: Decreased breath sounds at the bases. Abdomen is soft, nontender. EXAMINATION OF THE LOWER EXTREMITIES: Chronic skin changes, chronic edema bilaterally seems to have improved. LABS: Labs show sodium 136, potassium 5.6, chloride 108, CO2 is 20, BUN 68, serum creatinine 4.48, hemoglobin 8.2 g/dL. ASSESSMENT: 1. Acute kidney injury secondary to severe anemia, currently improved. 2. Chronic kidney disease stage 5. We will discuss renal replacement therapy again as outpatient. At this time, patient does not need to start dialysis. 3. Hyperkalemia associated with gastrointestinal bleed, metabolic acidosis and acute kidney injury, currently improving. 4. Volume overload, status post IV Lasix. We can switch to oral diuretics today. 5. Gastrointestinal bleed, status post endoscopy showing a large duodenal ulcer with no active bleeding noted. The patient has been transfused packed RBCs. He has received 4 units so far. Hemoglobin is staying stable at 8.2. The patient is also maintained on Aranesp. PLAN: Can switch to oral diuretics today. Okay to discharge patient. Follow up as outpatient in about one week's time. The patient is advised to continue with his Protonix and take his phosphate binders and Coreg along with sodium bicarb as well. The loop diuretics should help with the hyperkalemia as outpatient and patient should be maintained on a low-potassium diet. MMODL / IJN: [id number] /
[2018-11-08 12:47] VITALS: RESP 16
--- NOTE | 2018-11-08 14:38 | P.DS ---
Providers Date of admission: 11/05/18 02:57 Attending physician: Sheri Ortiz Consults: 11/05/18 02:54 Consult Physician Urgent Consulting Provider: Bj Newby Consult Reason/Comments: ARF, hyperkalemia Do you want consulting provider notified?: Yes, Notify in am Primary care physician: [facility] [place] [facility] Course: 59-year-old male was admitted with GI bleed patient will undergo upper GI endos copy and lower GI endoscopy and patient was transfused 4 units of blood and patient's hemoglobin is 8 at this time and patient doesn't have any more GI bleed. Potassium still remains high and patient is receiving capsulate patient does have chronic kidney disease stage IV dialysis was discussed in the past patient declined at that time now patient says he'll consider it patient does have elevated JVD fluid overload with crackles on lung exam and there is significant fluid overload on the chest x-ray although patient clinically appears well obtain a BNP which is elevated a lot of pain echocardiogram discussed with nephrology and decided to start him on Lasix 40 mg IV twice a day patient was using Demadex at home 11/07/2018 Patient is undergoing upper GI endoscopy patient didn't have a good prep as he noncompliant with recommendations of using GoLYTELY, colonoscopy cannot be done although patient doesn't have any active clinical GI bleed. Patient is still hyponatremic I'm hoping that will improve with IV Lasix possibility of discharge tomorrow 11/08/2018 Patient had an upper GI endoscopy which revealed an ulcer no more GI bleed at this time patient had heart failure exacerbation with the significant pleural effusion pulmonary edema both of which improved with IV Lasix. Patient creatinine although remains elevated and will eventually require hemodialysis for tension remains elevated discussed with the nephrology to closely follow the patient as an outpatient and patient is being discharged on Demadex 20 mg twice a day as opposed to 20 mg daily although patient has not been taking this medication at home. Patient was transfused 4 units of PRBC on admission. Patient has chronic diastolic dysfunction with acute exacerbation of admission patient presently has moderate pleural effusion expected to improve with diuretic therapy. Physical VS will assess for any home physical therapy needs a subacute rehabilitation placement after the reassessment patient probably will be discharged later today. Patient is feeling much better today. PHYSICAL EXAMINATION: GENERAL: The patient is alert and oriented x3, not in any acute distress. Well developed, well nourished. HEENT: Pupils are round and equally reacting to light. EOMI. No scleral icterus. Does have conjunctival pallor. Normocephalic, atraumatic. No pharyngeal erythema. No thyromegaly. CARDIOVASCULAR: S1 and S2 present. No murmurs, rubs, or gallops. No JVD PULMONARY: Good air entry into bilateral lung ely no crackles were appreciated ABDOMEN: Soft, nontender, nondistended, normoactive bowel sounds. No palpable organomegaly. MUSCULOSKELETAL: No joint swelling or deformity. EXTREMITIES: No cyanosis, clubbing, does have bilateral pedal edema which appears to be chronic venous stasis. NEUROLOGICAL: Gross neurological examination did not reveal any focal deficits. SKIN: No rashes. Assessment and Plan Plan: -Acute blood loss anemia from lower GI bleed most probably patient will undergo upper GI endoscopy . Hemoglobin 8 now after 4 units of blood transfusion -Acute renal failure: Secondary to prerenal azotemia from GI bleed. Patient does have chronic kidney disease from diabetic nephropathy patient does stage V chronic kidney disease, dialysis was discussed in the past and now by nephrology, patient declined until now and agreeable now to try hemodialysis for further evaluation as an outpatient -Hyperkalemia secondary to acute renal failure, chronic kidney disease a - and just heart failure chronic diastolic dysfunction with acute exacerbation -metabolic acidosis: Patient has both non-anion gap and anionic gap metabolic acidosis from my hyperchloremia and uremia as mentioned above and this is secondary to acute renal failure. -Type 2 diabetes mellitus noncompliant with medications because of worsening renal function I believe patient will become hypoglycemic because of which I'm cutting on glipizide 5 mg daily. Patient is highly noncompliant with medications -Diabetic retinopathy diabetic neuropathy -Hyperlipidemia Patient Condition at Discharge: Serious Plan - Discharge Summary Discharge Rx Participant: No New Discharge Prescriptions: New Sucralfate [Carafate] 1 gm PO AC-BID #60 tab Pantoprazole [Protonix] 40 mg PO AC-BRKFST #30 tablet.dr Continue Pravastatin Sodium [Pravachol] 20 mg PO HS Sodium Bicarbonate Tab 650 mg PO BID Timolol 0.5% Ophth Soln [Timoptic 0.5% Ophth Soln] 1 drop BOTH EYES BID Ergocalciferol (Vitamin D2) [Drisdol] 50,000 unit PO Q7D Carvedilol [Coreg] 6.25 mg PO BID #60 tablet Torsemide [Demadex] 20 mg PO DAILY #60 tab amLODIPine [Norvasc] 10 mg PO DAILY #30 tab Calcium Acetate [PhosLo] 667 mg PO TID #90 cap Changed glipiZIDE XL [Glucotrol XL] 5 mg PO DAILY #30 tab.er.24 Discharge Medication List Pravastatin Sodium [Pravachol] 20 mg PO HS 03/21/14 [History] Sodium Bicarbonate Tab 650 mg PO BID 07/15/14 [History] Ergocalciferol (Vitamin D2) [Drisdol] 50,000 unit PO Q7D 11/04/18 [History] Timolol 0.5% Ophth Soln [Timoptic 0.5% Ophth Soln] 1 drop BOTH EYES BID 11/04/18 [History] Calcium Acetate [PhosLo] 667 mg PO TID #90 cap 11/08/18 [Rx] Carvedilol [Coreg] 6.25 mg PO BID #60 tablet 11/08/18 [Rx] Pantoprazole [Protonix] 40 mg PO AC-BRKFST #30 tablet.dr 11/08/18 [Rx] Sucralfate [Carafate] 1 gm PO AC-BID #60 tab 11/08/18 [Rx] Torsemide [Demadex] 20 mg PO DAILY #60 tab 11/08/18 [Rx] amLODIPine [Norvasc] 10 mg PO DAILY #30 tab 11/08/18 [Rx] glipiZIDE XL [Glucotrol XL] 5 mg PO DAILY #30 tab.er.24 11/08/18 [Rx] Follow up Appointment(s)/Referral(s): Trista Oneil MD [STAFF PHYSICIAN] - 1 Week (Office is closed. Please call tomorrow to schedule appointment) Mildred Smart MD [STAFF PHYSICIAN] - 11/29/18 3:30 pm (. Please arrive at 3pm) Stephanie Patel MD [Primary Care Provider] - 11/13/18 1:00 pm (Monday) Patient Instructions/Handouts: Peptic Ulcer (DC), Chronic Kidney Disease Diet (DC), Upper Endoscopy (DC) Discharge Disposition: HOME WITH HOME HEALTH SERVICES
[2018-11-08 15:29] VITALS: BP 114/51; PULSE 81; TEMP 98.2
== END 2018-11-08 15:49 | disposition home health service (06) | DRG 377 ==
LOC: EC 21:49 → 3SCARD 11-05 02:57
PROVIDERS: ADMIT Hospitalist; ATTEND Hospitalist
PROC: 30233N1 Transfusion of Nonautologous Red Blood Cells into Peripheral Vein, Percutaneous Approach (ICD-10-PCS; principal; 2018-11-05)
PROC: 0DB78ZX Excision of Stomach, Pylorus, Via Natural or Artificial Opening Endoscopic, Diagnostic (ICD-10-PCS; 2018-11-07)
DX: K92.2 Gastrointestinal hemorrhage, unspecified (principal); I50.33 Acute on chronic diastolic (congestive) heart failure; D62 Acute posthemorrhagic anemia; E87.1 Hypo-osmolality and hyponatremia; E87.2 Acidosis; E87.3 Alkalosis; I13.2 Hypertensive heart and chronic kidney disease with heart failure and with stage 5 chronic kidney disease, or end stage renal disease; N17.9 Acute kidney failure, unspecified; N18.5 Chronic kidney disease, stage 5; K26.9 Duodenal ulcer, unspecified as acute or chronic, without hemorrhage or perforation; E11.22 Type 2 diabetes mellitus with diabetic chronic kidney disease; E11.42 Type 2 diabetes mellitus with diabetic polyneuropathy; E87.5 Hyperkalemia; E11.39 Type 2 diabetes mellitus with other diabetic ophthalmic complication; K29.70 Gastritis, unspecified, without bleeding; E66.9 Obesity, unspecified; E78.5 Hyperlipidemia, unspecified; H42 Glaucoma in diseases classified elsewhere; E83.89 Other disorders of mineral metabolism; J30.9 Allergic rhinitis, unspecified; R19.7 Diarrhea, unspecified; I87.8 Other specified disorders of veins; D63.1 Anemia in chronic kidney disease; T50.2X5A Adverse effect of carbonic-anhydrase inhibitors, benzothiadiazides and other diuretics, initial encounter; Z79.84 Long term (current) use of oral hypoglycemic drugs; Z79.899 Other long term (current) drug therapy; Z85.038 Personal history of other malignant neoplasm of large intestine; Z90.49 Acquired absence of other specified parts of digestive tract; Z68.30 Body mass index [BMI] 30.0-30.9, adult; Z91.14 Patient's other noncompliance with medication regimen
CPT/HCPCS: 36415; 43239; 71045; 80048; 80051; 80053; 81001; 82150; 82272; 82728; 83540; 83550; 83630; 83690; 83735; 83880; 84100; 85025; 85027; 86850; 86900; 86901; 86920; 87045; 87046; 87324; 88305; 93005; 93306; 96365; 96366; 96374; 96375; 99285

== ENCOUNTER 2018-11-11 10:27 | Inpatient (IN) | payer MEDICARE ==
[2018-11-11] MEDS ORDERED: ASPIRIN 300 MG SUPP RECTAL STA (11:08)
--- NOTE | 2018-11-11 11:14 | ED ---
General Adult HPI - General Chief complaint: Altered Mental Status Stated complaint: Altered Mental Status Time Seen by Provider: 11/11/18 11:00 Source: EMS Mode of arrival: EMS Limitations: altered mental status - History of Present Illness Initial comments: The patient is a 68-year-old male who presents to the emergency department with a chief complaint of altered mental status. He has a medical history of cancer, diabetes, hyperlipidemia, hypertension, chronic kidney disease and a recent history of anemia and gastric ulcer disease. His last seen in the emergency department on 11/05/2018 and admitted for anemia, GI bleeding, and PUD. He was discharged on the . It is reported that the patient has not been mobile at home and today has been more altered. Patient is unable to our history. He is awake, but is slow to answer if he answers all. The patient has a strong urine scent on initial contact, appears dehydrated but is in no distress - Related Data Home Medications Medication Instructions Recorded Confirmed Pravastatin Sodium [Pravachol] 20 mg PO HS 03/21/14 11/11/18 Sodium Bicarbonate Tab 650 mg PO BID 07/15/14 11/11/18 Ergocalciferol (Vitamin D2) 50,000 unit PO Q7D 11/04/18 11/11/18 [Drisdol] Timolol 0.5% Ophth Soln [Timoptic 1 drop BOTH EYES BID 11/04/18 11/11/18 0.5% Ophth Soln] Previous Rx's Medication Instructions Recorded Calcium Acetate [PhosLo] 667 mg PO TID #90 cap 11/08/18 Carvedilol [Coreg] 6.25 mg PO BID #60 tablet 11/08/18 Pantoprazole [Protonix] 40 mg PO AC-BRKFST #30 tablet.dr 11/08/18 Sucralfate [Carafate] 1 gm PO AC-BID #60 tab 11/08/18 Torsemide [Demadex] 20 mg PO DAILY #60 tab 11/08/18 amLODIPine [Norvasc] 10 mg PO DAILY #30 tab 11/08/18 glipiZIDE XL [Glucotrol XL] 5 mg PO DAILY #30 tab.er.24 11/08/18 Allergies Allergy/AdvReac Type Severity Reaction Status Date / Time No Known Allergies Allergy Verified 11/11/18 10:57 Review of Systems ROS Statement: Those systems with pertinent positive or pertinent negative responses have been documented in the HPI. ROS Other: All systems not noted in ROS Statement are negative. Limitations: ROS unobtainable due to patients medical condition (Altered mental status) Past Medical History Past Medical History: Cancer, Diabetes Mellitus, Eye Disorder, Hyperlipidemia, Hypertension, Renal Disease, Skin Disorder Additional Past Medical History / Comment(s): NIDDM type II, neuropathy bilateral feet, pt states he has current sores on bilateral lower legs/feet, past diabetic ulcers/venous stasis ulcers legs/feet and L foot cellulitis with 5th toe osteomyelitis in 2014, diabetic retinopathy bilaterally with surgery, bilateral glaucoma, chronic kidney disease, chronic anemia, past colon cancer with surgery-pt cannot recall if he had chemo/radiation, bronchitis, past R elbow fracture, allergic rhinitis. History of Any Multi-Drug Resistant Organisms: None Reported Past Surgical History: Bowel Resection Additional Past Surgical History / Comment(s): Colon resection, laser treatment for diabetic retinopathy, sinus surgery, R anterior lower leg wound debridement. Past Anesthesia/Blood Transfusion Reactions: No Reported Reaction Past Psychological History: No Psychological Hx Reported Smoking Status: Never smoker - Past Family History Father Family Medical History: No Reported History Additional Family Medical History / Comment(s): Father was healthy Mother Family Medical History: No Reported History Additional Family Medical History / Comment(s): Mother was healthy General Exam Limitations: altered mental status General appearance: alert, in no apparent distress Head exam: Present: atraumatic, normocephalic Eye exam: Present: normal appearance, PERRL. Absent: scleral icterus ENT exam: Present: mucous membranes dry Neck exam: Present: normal inspection Respiratory exam: Present: normal lung sounds bilaterally. Absent: respiratory distress Cardiovascular Exam: Present: regular rate, normal rhythm, systolic murmur GI/Abdominal exam: Present: soft. Absent: distended, tenderness Rectal exam: Present: deferred exam: Present: normal inspection Extremities exam: Present: pedal edema, other (Patient has what appears to be chronic venous stasis of the lower extremities, they did not look acutely infected.) Back exam: Present: normal inspection Neurological exam: Present: alert, altered, other (Patient will follow simple commands such as squeezing my fingers with his upper extremities) Psychiatric exam: Present: normal affect, normal mood Skin exam: Present: warm, dry, intact. Absent: mottled Course Vital Signs 11/11/18 10:29 Temperature 98.6 F Pulse Rate 90 Respiratory 20 Rate Blood Pressure 155/100 O2 Sat by Pulse 95 Oximetry Medical Decision Making - Medical Decision Making Patient presents with a chief complaint of altered mental status. On initial evaluation, vital signs show a heart rate of 90, otherwise vital signs are stable. EKG performed at 1052 shows sinus rhythm with PVCs, left bundle branch block with a rate of 92 bpm, symptoms are otherwise within normal limits. When compared to previous EKG performed on 11/05/2018, waveform appears similar though PVCs were not previously noted. Patient was recently discharged from the hospital on the for anemia and peptic ulcer disease. There is report of the patient has not moved from his couch since discharge. Patient to be evaluated basic labs including lactate acid, venous blood gas, chest x-ray and computed tomography scan of the head. We will send a CPK and an ammonia. Patient very likely has a urinary tract infection, blood cultures were drawn, patient given 30 mL per KG of IV fluid, and his initial dose of Rocephin. 1:01 PM Chest x-ray shows a right-sided pleural effusion versus infiltrate which appears to be stable from previous study. Computed tomography scan of the abdomen and pelvis shows evidence of possible cholecystitis and duodenitis. No bowel obstruction noted, no obstructive uropathy seen. Computed tomography scan of the head is unremarkable. Laboratory evaluation of this patient shows a potassium of 5.2, acute kidney failure with a creatinine of 6.07 which is nearly doubled from previous visit, lipase is mildly elevated at 354. Urinalysis showed evidence of infection. At this time, will be added to the patient's antibiotic regimen to cover for intra-abdominal pathology. Considerations for patient's altered mental status include uremia secondary to kidney failure, dehydration, acute infectious process. Case discussed with Dr. tyler who accepts admission. surgery on consult. - Lab Data Result diagrams: 11/11/18 11:38 11/11/18 11:38 Lab Results 11/11/18 11/11/18 11/11/18 Range/Units 11:38 11:38 11:38 WBC 10.6 (3.8-10.6) k/uL RBC 3.12 L (4.30-5.90) m/uL Hgb 8.6 L (13.0-17.5) gm/dL Hct 27.5 L (39.0-53.0) % MCV 88.3 (80.0-100.0) fL MCH 27.4 (25.0-35.0) pg MCHC 31.1 (31.0-37.0) g/dL RDW 17.1 H (11.5-15.5) % Plt Count 320 (150-450) k/uL Neutrophils % 77 % Lymphocytes % 9 % Monocytes % 5 % Eosinophils % 7 % Basophils % 0 % Neutrophils # 8.1 H (1.3-7.7) k/uL Lymphocytes # 1.0 (1.0-4.8) k/uL Monocytes # 0.5 (0-1.0) k/uL Eosinophils # 0.8 H (0-0.7) k/uL Basophils # 0.0 (0-0.2) k/uL Hypochromasia Marked Poikilocytosis Slight Anisocytosis Slight PT (9.0-12.0) sec INR (<1.2) VBG pH 7.31 (7.31-7.41) VBG pCO2 36 L (37-51) mmHg VBG HCO3 17 L (24-28) mmol/L Sodium (137-145) mmol/L Potassium (3.5-5.1) mmol/L Chloride (98-107) mmol/L Carbon Dioxide (22-30) mmol/L Anion Gap mmol/L BUN (9-20) mg/dL Creatinine (0.66-1.25) mg/dL Est GFR (CKD-EPI)AfAm (>60 ml/min/1.73 sqM) Est GFR (CKD-EPI)NonAf (>60 ml/min/1.73 sqM) Glucose (74-99) mg/dL Plasma Lactic Acid Mason (0.7-2.0) mmol/L Calcium (8.4-10.2) mg/dL Total Bilirubin (0.2-1.3) mg/dL AST (17-59) U/L ALT (21-72) U/L Alkaline Phosphatase (38-126) U/L Ammonia (<30) umol/L Creatine Kinase (55-170) U/L Troponin I (0.000-0.034) ng/mL Total Protein (6.3-8.2) g/dL Albumin (3.5-5.0) g/dL Lipase (23-300) U/L Urine Color Urine Appearance (Clear) Urine pH (5.0-8.0) Ur Specific [place] (1.001-1.035) Urine Protein (Negative) Urine Glucose (UA) (Negative) Urine Ketones (Negative) Urine Blood (Negative) Urine Nitrite (Negative) Urine Bilirubin (Negative) Urine Urobilinogen (<2.0) mg/dL Ur Leukocyte Esterase (Negative) Urine RBC (0-5) /hpf Urine WBC (0-5) /hpf Amorphous Sediment (None) /hpf Blood Type O Positive Blood Type Recheck No Antibody Screen NEGATIVE Spec Expiration Date 11/14/2018233711/11/18 11/11/18 11/11/18 Range/Units 11:38 11:38 11:38 WBC (3.8-10.6) k/uL RBC (4.30-5.90) m/uL Hgb (13.0-17.5) gm/dL Hct (39.0-53.0) % MCV (80.0-100.0) fL MCH (25.0-35.0) pg MCHC (31.0-37.0) g/dL RDW (11.5-15.5) % Plt Count (150-450) k/uL Neutrophils % % Lymphocytes % % Monocytes % % Eosinophils % % Basophils % % Neutrophils # (1.3-7.7) k/uL Lymphocytes # (1.0-4.8) k/uL Monocytes # (0-1.0) k/uL Eosinophils # (0-0.7) k/uL Basophils # (0-0.2) k/uL Hypochromasia Poikilocytosis Anisocytosis PT 10.4 (9.0-12.0) sec INR 1.0 (<1.2) VBG pH (7.31-7.41) VBG pCO2 (37-51) mmHg VBG HCO3 (24-28) mmol/L Sodium 143 (137-145) mmol/L Potassium 5.2 H (3.5-5.1) mmol/L Chloride 114 H (98-107) mmol/L Carbon Dioxide 18 L (22-30) mmol/L Anion Gap 11 mmol/L BUN 88 H (9-20) mg/dL Creatinine 6.07 H (0.66-1.25) mg/dL Est GFR (CKD-EPI)AfAm 10 (>60 ml/min/1.73 sqM) Est GFR (CKD-EPI)NonAf 9 (>60 ml/min/1.73 sqM) Glucose 140 H (74-99) mg/dL Plasma Lactic Acid Mason 1.0 (0.7-2.0) mmol/L Calcium 8.7 (8.4-10.2) mg/dL Total Bilirubin 0.2 (0.2-1.3) mg/dL AST 10 L (17-59) U/L ALT 8 L (21-72) U/L Alkaline Phosphatase 80 (38-126) U/L Ammonia <9 (<30) umol/L Creatine Kinase 48 L (55-170) U/L Troponin I (0.000-0.034) ng/mL Total Protein 5.7 L (6.3-8.2) g/dL Albumin 2.8 L (3.5-5.0) g/dL Lipase 354 H (23-300) U/L Urine Color Urine Appearance (Clear) Urine pH (5.0-8.0) Ur Specific [place] (1.001-1.035) Urine Protein (Negative) Urine Glucose (UA) (Negative) Urine Ketones (Negative) Urine Blood (Negative) Urine Nitrite (Negative) Urine Bilirubin (Negative) Urine Urobilinogen (<2.0) mg/dL Ur Leukocyte Esterase (Negative) Urine RBC (0-5) /hpf Urine WBC (0-5) /hpf Amorphous Sediment (None) /hpf Blood Type Blood Type Recheck Antibody Screen Spec Expiration Date 11/11/18 11/11/18 Range/Units 11:38 11:48 WBC (3.8-10.6) k/uL RBC (4.30-5.90) m/uL Hgb (13.0-17.5) gm/dL Hct (39.0-53.0) % MCV (80.0-100.0) fL MCH (25.0-35.0) pg MCHC (31.0-37.0) g/dL RDW (11.5-15.5) % Plt Count (150-450) k/uL Neutrophils % % Lymphocytes % % Monocytes % % Eosinophils % % Basophils % % Neutrophils # (1.3-7.7) k/uL Lymphocytes # (1.0-4.8) k/uL Monocytes # (0-1.0) k/uL Eosinophils # (0-0.7) k/uL Basophils # (0-0.2) k/uL Hypochromasia Poikilocytosis Anisocytosis PT (9.0-12.0) sec INR (<1.2) VBG pH (7.31-7.41) VBG pCO2 (37-51) mmHg VBG HCO3 (24-28) mmol/L Sodium (137-145) mmol/L Potassium (3.5-5.1) mmol/L Chloride (98-107) mmol/L Carbon Dioxide (22-30) mmol/L Anion Gap mmol/L BUN (9-20) mg/dL Creatinine (0.66-1.25) mg/dL Est GFR (CKD-EPI)AfAm (>60 ml/min/1.73 sqM) Est GFR (CKD-EPI)NonAf (>60 ml/min/1.73 sqM) Glucose (74-99) mg/dL Plasma Lactic Acid Mason (0.7-2.0) mmol/L Calcium (8.4-10.2) mg/dL Total Bilirubin (0.2-1.3) mg/dL AST (17-59) U/L ALT (21-72) U/L Alkaline Phosphatase (38-126) U/L Ammonia (<30) umol/L Creatine Kinase (55-170) U/L Troponin I <0.012 (0.000-0.034) ng/mL Total Protein (6.3-8.2) g/dL Albumin (3.5-5.0) g/dL Lipase (23-300) U/L Urine Color Light Yellow Urine Appearance Clear (Clear) Urine pH 5.0 (5.0-8.0) Ur Specific [place] 1.011 (1.001-1.035) Urine Protein 1+ H (Negative) Urine Glucose (UA) Negative (Negative) Urine Ketones Negative (Negative) Urine Blood Moderate H (Negative) Urine Nitrite Negative (Negative) Urine Bilirubin Negative (Negative) Urine Urobilinogen <2.0 (<2.0) mg/dL Ur Leukocyte Esterase Negative (Negative) Urine RBC 57 H (0-5) /hpf Urine WBC 1 (0-5) /hpf Amorphous Sediment Rare H (None) /hpf Blood Type Blood Type Recheck Antibody Screen Spec Expiration Date Disposition Clinical Impression: Altered mental status, Uremic encephalopathy, Cholecystitis, Abnormal chest x- ray Disposition: ADMITTED IP TO THIS [facility] Condition: Fair Referrals: Stephanie Patel MD [Primary Care Provider] - 1-2 days Decision to Admit Reason: Admit from EC - Out of Hospital Transfer - Req. Specs Out of Hospital Transfer - Requested Specifics: Telemetry Unit
[2018-11-11 11:51] LABS: Anisocytosis Slight; Basophils % (A) 0 %; Eosinophils # (A) 0.8 k/uL (0-0.7); Eosinophils % (A) 7 %; HCT 27.5 % (39.0-53.0); HGB 8.6 gm/dL (13.0-17.5); Hypochromasia Marked; Lymphocytes % (A) 9 %; MCH 27.4 pg (25.0-35.0); MCHC 31.1 g/dL (31.0-37.0); MCV 88.3 fL (80.0-100.0); Mean Platelet Volume 7.8; Monocytes # (A) 0.5 k/uL (0-1.0); Monocytes % (A) 5 %; Neutrophils # (A) 8.1 k/uL (1.3-7.7); Neutrophils % (A) 77 %; Platelet Count 320 k/uL (150-450); Poikilocytosis Slight; RBC 3.12 m/uL (4.30-5.90); RDW 17.1 % (11.5-15.5); WBC 10.6 k/uL (3.8-10.6)
[2018-11-11 11:52] LABS: Prothrombin Time 10.4 sec (9.0-12.0)
[2018-11-11 11:55] LABS: VBG PH 7.31 (7.31-7.41)
[2018-11-11 11:59] LABS: Ammonia <9 umol/L (<30)
[2018-11-11 12:00] LABS: Albumin 2.8 g/dL (3.5-5.0); Calcium 8.7 mg/dL (8.4-10.2); Potassium 5.2 mmol/L (3.5-5.1); Total Bilirubin 0.2 mg/dL (0.2-1.3); Total Protein 5.7 g/dL (6.3-8.2)
[2018-11-11 12:07] LABS: Amorphous Sediment,Urine Rare /hpf; Appearance,Urine Clear (Clear); Bilirubin,Urine Negative (Negative); Blood,Urine Moderate (Negative); Color,Urine Light Yellow; Glucose,Urine (UA) Negative (Negative); Ketones,Urine Negative (Negative); Leukocyte Esterase,Urine Negative (Negative); Nitrite,Urine Negative (Negative); Protein,Urine 1+ (Negative); RBC,Urine 57 /hpf (0-5); Specific Gravity,Urine 1.011 (1.001-1.035); Urobilinogen,Urine <2.0 mg/dL (<2.0); WBC,Urine 1 /hpf (0-5)
--- NOTE | 2018-11-11 12:43 | XR ---
EXAMINATION TYPE: XR chest 1V portable DATE OF EXAM: 11/11/2018 COMPARISON: Chest x-ray 4 days ago. HISTORY: Fever and weakness. TECHNIQUE: Single AP portable frontal semiupright view of the chest is obtained. FINDINGS: The osseous structures remain demineralized. There is persistent cardiomegaly. There is ch ronic parenchymal change with persistent small to moderate-sized right pleural effusion and associate d right basilar atelectasis and/or infiltrate IMPRESSION: Overall stable findings, cardiomegaly and chronic parenchymal changes with small to mode rate-sized right pleural effusion and associated right basilar atelectasis and/or infiltrate all are redemonstrated.
[2018-11-11] MEDS: SODIUM CHLORIDE 0.9% 500 ML 500 ML IV SCH (12:44)
--- NOTE | 2018-11-11 12:44 | CT ---
EXAMINATION TYPE: CT brain wo con DATE OF EXAM: 11/11/2018 HISTORY: Altered mental status CT DLP: 1091.4 mGycm. Automated Exposure Control for Dose Reduction was Utilized. TECHNIQUE: CT scan of the head is performed without contrast. COMPARISON: CT brain November 06, 2012 FINDINGS: There is no acute intracranial hemorrhage or midline shift identified. There is diffuse v entricular and sulcal prominence consistent with diffuse age-related cerebral atrophy. There is low- attenuation in the periventricular white matter consistent with chronic small vessel ischemic change. There is evidence of prior sinus surgery. Visualized paranasal sinuses remain clear. Globes are int act bilaterally. IMPRESSION: No acute intracranial hemorrhage or midline shift. There is moderate diffuse age-relate d cerebral atrophy and chronic small vessel ischemic change redemonstrated with some progression note d from 2013 study.
--- NOTE | 2018-11-11 12:49 | CT ---
EXAMINATION TYPE: CT abdomen pelvis wo con DATE OF EXAM: 11/11/2018 HISTORY: Altered mental status, abdominal pain. CT DLP: 999.1 mGycm. Automated Exposure Control for Dose Reduction was Utilized. TECHNIQUE: CT scan of the abdomen and pelvis is performed without oral or IV contrast. COMPARISON: NONE FINDINGS: Within the limitations of a non-contrast study, the following observations are made. LUNG BASES: There is small right pleural fluid collection which does not completely layer dependently with associated right basilar atelectasis and/or infiltrate. Coronary artery calcification is presen t. Tiny pericardial effusion noted. LIVER/GB: No significant abnormality is appreciated. PANCREAS: Pancreas is overall normal in size without significant surrounding fat stranding or ductal dilatation. SPLEEN: No significant abnormality is seen. ADRENALS: No significant abnormality is seen. KIDNEYS: There is cortical thinning in both kidneys is consistent with product of chronic medical jaylyn al disease as renal sizes are small bladder is poorly distended with mild concentric wall thickening. BOWEL: No suspicious small or large bowel dilatation. Suggestion of some inflammatory change or ill-d efined fluid along the course of second portion of duodenum. Focal fecal prominence in the rectum. Re dundant sigmoid colon. A few scattered colonic diverticula. GENITAL ORGANS: Prostate gland is felt normal in size. LYMPH NODES: No greater than 1cm abdominal or pelvic lymph nodes are appreciated. OSSEOUS STRUCTURES: S-shaped rotary scoliosis. Moderate to severe multilevel anterior and lateral spu rring in the spine OTHER: Mild to moderate vascular calcification of the aorta with more dense calcification involving s maller branch vessels. Mild to moderate subcutaneous edema over the lateral flanks, right greater than left. IMPRESSION: 1. Possible acute cystitis, correlate clinically. 2. Confirmation of small right pleural fluid collection or effusion with associated right basilar ate lectasis and/or infiltrate. 3. Mild inflammatory change at level of second portion of duodenum, correlate for acute duodenitis. O verall nonobstructive bowel gas pattern. Mild to moderate rectal fecal stasis noted.
[2018-11-11] MEDS ORDERED: metroNIDAZOLE-NS PMX 500 MG in SALINE 1 100ML.BAG IVPB STA (13:01)
[2018-11-11] MEDS ORDERED: NALOXONE 0.4 MG/ML 1 ML VIAL IV PRN (13:06)
--- NOTE | 2018-11-11 14:49 | P.HPIM ---
History of Present Illness This is a pleasant 68 years old male with past medical history of diabetes mellitus, hypertension, hyperlipidemia, diabetic neuropathy, bilateral glaucoma, chronic kidney disease, history of colon cancer status post surgical resection. He presents with altered mental status. Patient is poor historian, when he asked he repeats his team and gives short unrelated answers. He is doesn't look tachypneic. He does not have specific complain of pain. On admissions patient is afebrile, blood pressure 155/100. Saturating 95% on 2 L. Labs showing WBC within normal limits at 10.6 K, hemoglobin 8.6, platelets 320. INR is 1.0. Creatinine 6.0. Potassium 5.2, sodium 143.. Liver enzymes not elevated, troponin less than 0.012, lipase 354, urinalysis showing RBCs 57. EKG showed sinus rhythm with frequent PVCs, QTC is 519. Abdomen/pelvis CT without contrast: Small right sided pleural effusion with atelectasis and/or infiltrate, possible acute cystitis and duodenitis. Nonobstructive bowel gas pattern. Chest x-ray: Moderate sized right pleural effusion with associated atelectasis and/or infiltrate, Similar to old chest x-ray. However there was possible of progressive disease. Review of Systems N/a Past Medical History Past Medical History: Cancer, Diabetes Mellitus, Eye Disorder, Hyperlipidemia, Hypertension, Renal Disease, Skin Disorder Additional Past Medical History / Comment(s): NIDDM type II, neuropathy bilateral feet, pt states he has current sores on bilateral lower legs/feet, past diabetic ulcers/venous stasis ulcers legs/feet and L foot cellulitis with 5th toe osteomyelitis in 2013, diabetic retinopathy bilaterally with surgery, bilateral glaucoma, chronic kidney disease, chronic anemia, past colon cancer with surgery-pt cannot recall if he had chemo/radiation, bronchitis, past R elbow fracture, allergic rhinitis. History of Any Multi-Drug Resistant Organisms: None Reported Past Surgical History: Bowel Resection Additional Past Surgical History / Comment(s): Colon resection, laser treatment for diabetic retinopathy, sinus surgery, R anterior lower leg wound debridement. Past Anesthesia/Blood Transfusion Reactions: No Reported Reaction Past Psychological History: No Psychological Hx Reported Smoking Status: Never smoker - Past Family History Father Family Medical History: No Reported History Additional Family Medical History / Comment(s): Father was healthy Mother Family Medical History: No Reported History Additional Family Medical History / Comment(s): Mother was healthy Medications and Allergies Home Medications Medication Instructions Recorded Confirmed Type Pravastatin Sodium [Pravachol] 20 mg PO HS 03/21/14 11/11/18 History Sodium Bicarbonate Tab 650 mg PO BID 07/15/14 11/11/18 History Ergocalciferol (Vitamin D2) 50,000 unit PO Q7D 11/04/18 11/11/18 History [Drisdol] Timolol 0.5% Ophth Soln [Timoptic 1 drop BOTH EYES BID 11/04/18 11/11/18 History 0.5% Ophth Soln] Calcium Acetate [PhosLo] 667 mg PO TID #90 cap 11/08/18 11/11/18 Rx Carvedilol [Coreg] 6.25 mg PO BID #60 tablet 11/08/18 11/11/18 Rx Pantoprazole [Protonix] 40 mg PO AC-BRKFST #30 tablet.dr 11/08/18 11/11/18 Rx Sucralfate [Carafate] 1 gm PO AC-BID #60 tab 11/08/18 11/11/18 Rx Torsemide [Demadex] 20 mg PO DAILY #60 tab 11/08/18 11/11/18 Rx amLODIPine [Norvasc] 10 mg PO DAILY #30 tab 11/08/18 11/11/18 Rx glipiZIDE XL [Glucotrol XL] 5 mg PO DAILY #30 tab.er.24 11/08/18 11/11/18 Rx Allergies Allergy/AdvReac Type Severity Reaction Status Date / Time No Known Allergies Allergy Verified 11/11/18 10:57 Physical Exam Vitals: Vital Signs Temp Pulse Resp BP Pulse Ox 11/11/18 10:29 98.6 F 90 20 155/100 95 Intake and Output 11/10/18 11/11/18 11/11/18 22:59 06:59 14:59 Other: Weight 90.718 kg -GENERAL: The patient is confused. Open eyes spontaneously and answers questions inappropriately. HEENT: Pupils are round and equally reacting to light. EOMI. No scleral icterus. No conjunctival pallor. Normocephalic, atraumatic. No pharyngeal erythema. No thyromegaly. CARDIOVASCULAR: S1 and S2 present. No murmurs, rubs, or gallops. PULMONARY: Chest is clear to auscultation, no wheezing or crackles. ABDOMEN: Soft, nontender, nondistended, normoactive bowel sounds. No palpable organomegaly. MUSCULOSKELETAL: No joint swelling or deformity. -EXTREMITIES: No cyanosis, clubbing,. Bilateral pitting leg edema NEUROLOGICAL: Gross neurological examination did not reveal any focal deficits. SKIN: No rashes. Results CBC & Chem 7: 11/11/18 11:38 11/11/18 11:38 Labs: Abnormal Lab Results - Last 24 Hours (Table) 11/11/18 11/11/18 11/11/18 Range/Units 11:38 11:38 11:38 RBC 3.12 L (4.30-5.90) m/uL Hgb 8.6 L (13.0-17.5) gm/dL Hct 27.5 L (39.0-53.0) % RDW 17.1 H (11.5-15.5) % Neutrophils # 8.1 H (1.3-7.7) k/uL Eosinophils # 0.8 H (0-0.7) k/uL VBG pCO2 36 L (37-51) mmHg VBG HCO3 17 L (24-28) mmol/L Potassium 5.2 H (3.5-5.1) mmol/L Chloride 114 H (98-107) mmol/L Carbon Dioxide 18 L (22-30) mmol/L BUN 88 H (9-20) mg/dL Creatinine 6.07 H (0.66-1.25) mg/dL Glucose 140 H (74-99) mg/dL AST 10 L (17-59) U/L ALT 8 L (21-72) U/L Creatine Kinase 48 L (55-170) U/L Total Protein 5.7 L (6.3-8.2) g/dL Albumin 2.8 L (3.5-5.0) g/dL Lipase 354 H (23-300) U/L Urine Protein (Negative) Urine Blood (Negative) Urine RBC (0-5) /hpf Amorphous Sediment (None) /hpf 11/11/18 Range/Units 11:48 RBC (4.30-5.90) m/uL Hgb (13.0-17.5) gm/dL Hct (39.0-53.0) % RDW (11.5-15.5) % Neutrophils # (1.3-7.7) k/uL Eosinophils # (0-0.7) k/uL VBG pCO2 (37-51) mmHg VBG HCO3 (24-28) mmol/L Potassium (3.5-5.1) mmol/L Chloride (98-107) mmol/L Carbon Dioxide (22-30) mmol/L BUN (9-20) mg/dL Creatinine (0.66-1.25) mg/dL Glucose (74-99) mg/dL AST (17-59) U/L ALT (21-72) U/L Creatine Kinase (55-170) U/L Total Protein (6.3-8.2) g/dL Albumin (3.5-5.0) g/dL Lipase (23-300) U/L Urine Protein 1+ H (Negative) Urine Blood Moderate H (Negative) Urine RBC 57 H (0-5) /hpf Amorphous Sediment Rare H (None) /hpf Assessment and Plan Assessment: Altered mental status, mostly metabolic encephalopathy Persistent right sided pleural effusion with possible atelectasis/infiltrate Acute renal failure, on chronic kidney disease, stage IV-V Diabetes mellitus Essential hypertension Hyperlipidemia Diabetic neuropathy History of bilateral rectal, Chronic kidney disease History of colon cancer status post surgical resection Plan: This is a pleasant 68 years old male who presents with altered mental status, possible pneumonia. Acute kidney injury, Also possible duodenitis and cystitis. We'll start patient off antibiotics of zosyn. Follow-up urine culture and sputum culture. Patient will need to repeat urine analysis after patient antibiotic therapy. will order chest ultrasound. Will call pulmonary consult to help with the pleural effusion as well as nephrology consult.Labs and medication were reviewed.. Continue same treatment. Continue with symptomatic treatment. Resume home medication. Monitor lytes and vitals. DVT and GI prophylaxis. Further recommendations of the clinical course of the patient DVT prophylaxis: Subcutaneous heparin GI Prophylaxis: Protonix Prognosis is guarded
--- NOTE | 2018-11-11 16:20 | US ---
EXAMINATION TYPE: US chest DATE OF EXAM: 11/11/2018 COMPARISON: Chest x-ray earlier today. CLINICAL HISTORY: right pleural effusion . sob TECHNIQUE: Targeted ultrasound of the posterior lower right EXAM MEASUREMENTS: Right Pleural Effusion pocket size: 12.2 cm Right skin surface to fluid distance: 4.5 cm Right side marked for possible thoracentesis outside the dept. Pulmonologists are able to review the images in the patient?s EMR. IMPRESSIONS: Moderate right-sided pleural effusion is confirmed on 4 images saved which correlates same day chest x-ray.
--- NOTE | 2018-11-11 16:22 | US ---
EXAMINATION TYPE: US gallbladder DATE OF EXAM: 11/11/2018 COMPARISON: CT abdomen and pelvis earlier today CLINICAL HISTORY: Pain. Cholecystitis, patient has altered mental status and very rigid. exam is extremely limited EXAM MEASUREMENTS: Liver Length: 19.2 cm Gallbladder Wall: 0.2 cm CBD: 0.6 cm Right Kidney: N/A Pancreas: not seen Liver: extremely limited views shows possible enlargement Gallbladder: wnl Evidence for sonographic Galindo's sign: no CBD: wnl Right Kidney: not seen due to reasons stated above Exam noted markedly suboptimal due to patient underlying altered mental status with inability to resp ond to commands as well as large body habitus and overlying bowel gas. Pancreas is not well seen on i mages saved but appeared within normal limits on recent noncontrast CT. Visualized liver is heterogen eously hyperechoic without mass or ductal dilatation. Common bile duct is upper limits of normal gall bladder shows no obvious shadowing mobile gallstones or surrounding inflammatory change. Right kidney is not seen. IMPRESSION: MARKEDLY SUBOPTIMAL STUDY BUT NO SHADOWING MOBILE GALLSTONES OR ULTRASOUND EVIDENCE FOR A CUTE CHOLECYSTITIS.
[2018-11-11 17:15] LABS: Glucose,Whole Blood 121 mg/dL (75-99)
[2018-11-11] MEDS: CARVEDILOL 6.25 MG TAB PO SCH ×2 (17:34→17:37)
[2018-11-11] MEDS: PIPERACILLIN-TAZOBACTAM 3.375 GM in SODIUM CHLORIDE 0.9% 100 ML IVPB SCH (17:34)
[2018-11-11] MEDS: CALCIUM ACETATE 667 MG CAP PO SCH (17:34)
[2018-11-11] MEDS: SUCRALFATE 1 GM TAB PO SCH (17:34)
[2018-11-11 20:36] LABS: Glucose,Whole Blood 115 mg/dL (75-99)
[2018-11-11] MEDS: PRAVASTATIN SODIUM 20 MG TAB PO SCH (21:55)
[2018-11-11] MEDS: SODIUM BICARBONATE TAB 650 MG TAB PO SCH (21:55)
[2018-11-11] MEDS: SODIUM CHLORIDE 0.9% 1,000 ML IV SCH (21:55)
[2018-11-12] MEDS: PIPERACILLIN-TAZOBACTAM 3.375 GM in SODIUM CHLORIDE 0.9% 100 ML IVPB SCH ×3 (00:15→20:16)
[2018-11-12] MEDS: SODIUM CHLORIDE 0.9% 1,000 ML IV SCH ×2 (04:05→17:13)
[2018-11-12] MEDS: SODIUM BICARBONATE TAB 650 MG TAB PO SCH ×2 (07:29→20:17)
[2018-11-12] MEDS: CARVEDILOL 6.25 MG TAB PO SCH ×2 (07:29→17:10)
[2018-11-12] MEDS: CALCIUM ACETATE 667 MG CAP PO SCH ×3 (07:29→17:10)
[2018-11-12] MEDS: SUCRALFATE 1 GM TAB PO SCH ×2 (07:30→17:10)
[2018-11-12] MEDS: amLODIPine 10 MG TAB PO SCH (07:30)
--- NOTE | 2018-11-12 11:21 | P.GSCN ---
History of Present Illness Consult date: 11/12/18 History of present illness: This is a 68-year-old male with multiple medical comorbidities as detailed in the chart. Majority of the history of present illness is obtained from chart review secondary to patient's mental status. He was recently hospitalized 1 week ago and was found to have a large duodenal bulb ulcer. He is being treated by GI for this with PPIs and Carafate. There was concern for possible cholecystitis and general surgery was consulted. Patient denies any abdominal pain. He has no nausea vomiting at this time. Past Medical History Past Medical History: Cancer, Diabetes Mellitus, Eye Disorder, Hyperlipidemia, Hypertension, Renal Disease, Skin Disorder Additional Past Medical History / Comment(s): NIDDM type II, neuropathy bilateral feet, pt states he has current sores on bilateral lower legs/feet, past diabetic ulcers/venous stasis ulcers legs/feet and L foot cellulitis with 5 th toe osteomyelitis in 2013, diabetic retinopathy bilaterally with surgery, bilateral glaucoma, chronic kidney disease, chronic anemia, past colon cancer with surgery-pt cannot recall if he had chemo/radiation, bronchitis, past R elbow fracture, allergic rhinitis. History of Any Multi-Drug Resistant Organisms: None Reported Past Surgical History: Bowel Resection Additional Past Surgical History / Comment(s): Colon resection, laser treatment for diabetic retinopathy, sinus surgery, R anterior lower leg wound debridement. Past Anesthesia/Blood Transfusion Reactions: No Reported Reaction Past Psychological History: No Psychological Hx Reported Smoking Status: Never smoker - Past Family History Father Family Medical History: No Reported History Additional Family Medical History / Comment(s): Father was healthy Mother Family Medical History: No Reported History Additional Family Medical History / Comment(s): Mother was healthy Medications and Allergies Home Medications Medication Instructions Recorded Confirmed Type Pravastatin Sodium [Pravachol] 20 mg PO HS 03/21/14 11/11/18 History Sodium Bicarbonate Tab 650 mg PO BID 07/15/14 11/11/18 History Ergocalciferol (Vitamin D2) 50,000 unit PO Q7D 11/04/18 11/11/18 History [Drisdol] Timolol 0.5% Ophth Soln [Timoptic 1 drop BOTH EYES BID 11/04/18 11/11/18 History 0.5% Ophth Soln] Calcium Acetate [PhosLo] 667 mg PO TID #90 cap 11/08/18 11/11/18 Rx Carvedilol [Coreg] 6.25 mg PO BID #60 tablet 11/08/18 11/11/18 Rx Pantoprazole [Protonix] 40 mg PO AC-BRKFST #30 tablet.dr 11/08/18 11/11/18 Rx Sucralfate [Carafate] 1 gm PO AC-BID #60 tab 11/08/18 11/11/18 Rx Torsemide [Demadex] 20 mg PO DAILY #60 tab 11/08/18 11/11/18 Rx amLODIPine [Norvasc] 10 mg PO DAILY #30 tab 11/08/18 11/11/18 Rx glipiZIDE XL [Glucotrol XL] 5 mg PO DAILY #30 tab.er.24 11/08/18 11/11/18 Rx Allergies Allergy/AdvReac Type Severity Reaction Status Date / Time No Known Allergies Allergy Verified 11/11/18 10:57 Surgical - Exam Osteopathic Statement: *. No significant issues noted on an osteopathic structural exam other than those noted in the History and Physical/Consult. Vital Signs Temp Pulse Resp BP Pulse Ox 98.6 F 90 20 155/100 95 11/11/18 10:29 11/11/18 10:29 11/11/18 10:29 11/11/18 10:29 11/11/18 10:29 - General well developed, well nourished, no distress - Eyes PERRL - Neck trachea midline - Respiratory normal expansion, normal respiratory effort - Cardiovascular Rhythm: regular - Abdomen Abdomen: soft, non tender - Neurologic normal coordination, normal sensation - Psychiatric Responds to command Results - Labs 11/11/18 11:38 11/11/18 11:38 Abnormal Lab Results - Last 24 Hours (Table) 11/11/18 11/11/18 11/11/18 Range/Units 11:38 11:38 11:38 RBC 3.12 L (4.30-5.90) m/uL Hgb 8.6 L (13.0-17.5) gm/dL Hct 27.5 L (39.0-53.0) % RDW 17.1 H (11.5-15.5) % Neutrophils # 8.1 H (1.3-7.7) k/uL Eosinophils # 0.8 H (0-0.7) k/uL VBG pCO2 36 L (37-51) mmHg VBG HCO3 17 L (24-28) mmol/L Potassium 5.2 H (3.5-5.1) mmol/L Chloride 114 H (98-107) mmol/L Carbon Dioxide 18 L (22-30) mmol/L BUN 88 H (9-20) mg/dL Creatinine 6.07 H (0.66-1.25) mg/dL Glucose 140 H (74-99) mg/dL POC Glucose (mg/dL) (75-99) mg/dL AST 10 L (17-59) U/L ALT 8 L (21-72) U/L Creatine Kinase 48 L (55-170) U/L Total Protein 5.7 L (6.3-8.2) g/dL Albumin 2.8 L (3.5-5.0) g/dL Lipase 354 H (23-300) U/L Urine Protein (Negative) Urine Blood (Negative) Urine RBC (0-5) /hpf Amorphous Sediment (None) /hpf 11/11/18 11/11/18 11/11/18 Range/Units 11:48 17:04 20:33 RBC (4.30-5.90) m/uL Hgb (13.0-17.5) gm/dL Hct (39.0-53.0) % RDW (11.5-15.5) % Neutrophils # (1.3-7.7) k/uL Eosinophils # (0-0.7) k/uL VBG pCO2 (37-51) mmHg VBG HCO3 (24-28) mmol/L Potassium (3.5-5.1) mmol/L Chloride (98-107) mmol/L Carbon Dioxide (22-30) mmol/L BUN (9-20) mg/dL Creatinine (0.66-1.25) mg/dL Glucose (74-99) mg/dL POC Glucose (mg/dL) 121 H 115 H (75-99) mg/dL AST (17-59) U/L ALT (21-72) U/L Creatine Kinase (55-170) U/L Total Protein (6.3-8.2) g/dL Albumin (3.5-5.0) g/dL Lipase (23-300) U/L Urine Protein 1+ H (Negative) Urine Blood Moderate H (Negative) Urine RBC 57 H (0-5) /hpf Amorphous Sediment Rare H (None) /hpf Microbiology - Last 24 Hours (Table) 11/11/18 11:48 Urine Culture - Preliminary Urine,Catheterized Diabetes panel 11/11/18 Range/Units 11:38 Sodium 143 (137-145) mmol/L Potassium 5.2 H (3.5-5.1) mmol/L Chloride 114 H (98-107) mmol/L Carbon Dioxide 18 L (22-30) mmol/L BUN 88 H (9-20) mg/dL Creatinine 6.07 H (0.66-1.25) mg/dL Glucose 140 H (74-99) mg/dL Calcium 8.7 (8.4-10.2) mg/dL AST 10 L (17-59) U/L ALT 8 L (21-72) U/L Alkaline Phosphatase 80 (38-126) U/L Total Protein 5.7 L (6.3-8.2) g/dL Albumin 2.8 L (3.5-5.0) g/dL Calcium panel 11/11/18 Range/Units 11:38 Calcium 8.7 (8.4-10.2) mg/dL Albumin 2.8 L (3.5-5.0) g/dL Pituitary panel 11/11/18 Range/Units 11:38 Sodium 143 (137-145) mmol/L Potassium 5.2 H (3.5-5.1) mmol/L Chloride 114 H (98-107) mmol/L Carbon Dioxide 18 L (22-30) mmol/L BUN 88 H (9-20) mg/dL Creatinine 6.07 H (0.66-1.25) mg/dL Glucose 140 H (74-99) mg/dL Calcium 8.7 (8.4-10.2) mg/dL Adrenal panel 11/11/18 Range/Units 11:38 Sodium 143 (137-145) mmol/L Potassium 5.2 H (3.5-5.1) mmol/L Chloride 114 H (98-107) mmol/L Carbon Dioxide 18 L (22-30) mmol/L BUN 88 H (9-20) mg/dL Creatinine 6.07 H (0.66-1.25) mg/dL Glucose 140 H (74-99) mg/dL Calcium 8.7 (8.4-10.2) mg/dL Total Bilirubin 0.2 (0.2-1.3) mg/dL AST 10 L (17-59) U/L ALT 8 L (21-72) U/L Alkaline Phosphatase 80 (38-126) U/L Total Protein 5.7 L (6.3-8.2) g/dL Albumin 2.8 L (3.5-5.0) g/dL Assessment and Plan Assessment: duodenal ulcer. Plan: patient was found to have a large duodenal ulcer and EGD 1 week ago. He's being treated PPIs and Carafate. I recommend continuing this therapy. Ultrasound was negative for acute cholecystitis at this time. No plans for acute surgical intervention.
[2018-11-12 11:34] LABS: Glucose,Whole Blood 148 mg/dL (75-99)
--- NOTE | 2018-11-12 12:52 | CONS ---
CONSULTATION The patient is a 68-year-old male with advanced renal failure, NKF stage 5 who was just discharged from the hospital about 2 days ago after an admission for acute kidney injury on top of chronic kidney disease and severe gastrointestinal bleed where his hemoglobin was 4.9 on admission on his last visit. Serum creatinine on the last visit was as high as 5.1 mg/dL and came down to 4.48 at the time of discharge. Patient was admitted to the hospital with mental status changes, increasing weakness. PAST MEDICAL HISTORY: 1. CKD stage 5 secondary to diabetic nephropathy and nephrosclerosis. 2. Volume overload. 3. Recent gastrointestinal bleed. 4. Metabolic encephalopathy, possible component of uremia. 5. History of colon cancer, status post resection. Past surgical history and social history as per last consult 4 days ago O/E Pt is comfortable. Awake.Oriented x3 Lungs are clear CVS, S1, S2 Abdomen is soft, non tender. Ext, no edema noted. Labs are reviewed A/P 1. CKD stage 5 with worsening renal failure. Patient is advised that he will need to start dialysis if renal function does not improve. His creatinine was up to 6 from about 4.4 on his last admission. I believe if patient is discharged without dialysis he will end up being admitted frequently. 2. Metabolic acidosis secondary to renal failure. 3. Persistent right-sided pleural effusion. PLAN: Start hemodialysis if patient is agreeable. At this time, patient states he wants to think about it and cannot answer the question right now. We have discussed with him renal replacement therapy for almost a year now and initially he had been refusing however most recently as outpatient patient stated that he might consider dialysis if it needed to be done. At this time we will await the patient's decision. If he decides to proceed, we will consult vascular surgery for PermCath placement. Continue with the sodium bicarb for now. MMODL / IJN: [id number] / JUAN CARLOS
--- NOTE | 2018-11-12 13:55 | PCN ---
PROCEDURE NOTE PROCEDURE: Right-sided thoracentesis. INDICATION: Pleural effusion. A time-out was completed verifying correct patient, procedure, site, positioning , and implant (s) or special equipment if applicable. The procedure was done by Dr. Casey and Leonela Amanda. Ultrasound guidance was used and appropriate fluid pocket was identified and marked in the right posterior chest. Patient was positioned, prepped and draped in usual sterile fashion. Lidocaine was used to anesthetize the area. A Thoracentesis catheter was introduced into the pleural space and fluid was removed. Blood loss was none. A chest x-ray was ordered to evaluate for pneumothorax. Total Fluid Removed 1200 mL Fluid was for appropriate laboratory tests. Patient tolerated the procedure well and there were no complications. MMODL / IJN: [id number] /
--- NOTE | 2018-11-12 14:02 | XR ---
EXAMINATION TYPE: XR chest 1V portable DATE OF EXAM: 11/12/2018 COMPARISON: 11/11/2018 HISTORY: Post right thoracentesis TECHNIQUE: Single frontal view of the chest is obtained. FINDINGS: Interval reduction in amount of fluid in the right with persistent effusion and consolidat ion. Cardiomegaly noted and there suspicion for underlying COPD. No sizable pneumothorax. Arthropathy of the shoulders with a chronic deformity involving the right proximal humerus. IMPRESSION: 1. Interval reduction in amount pleural fluid on the right with no sizable pneumothorax. Could not ex clude a right lower lobe mass or area of pneumonia. Correlate clinically.
--- NOTE | 2018-11-12 15:04 | P.PN ---
Subjective This is a pleasant 68 years old male with past medical history of diabetes mellitus, hypertension, hyperlipidemia, diabetic neuropathy, bilateral glaucoma, chronic kidney disease, history of colon cancer status post surgical resection. He presents with altered mental status. Patient is poor historian, when he asked he repeats his team and gives short unrelated answers. He is doesn't look tachypneic. He does not have specific complain of pain. On admissions patient is afebrile, blood pressure 155/100. Saturating 95% on 2 L. Labs showing WBC within normal limits at 10.6 K, hemoglobin 8.6, platelets 320. INR is 1.0. Creatinine 6.0. Potassium 5.2, sodium 143.. Liver enzymes not elevated, troponin less than 0.012, lipase 354, urinalysis showing RBCs 57. EKG showed sinus rhythm with frequent PVCs, QTC is 519. Abdomen/pelvis CT wit hout contrast: Small right sided pleural effusion with atelectasis and/or infiltrate, possible acute cystitis and duodenitis. Nonobstructive bowel gas pattern. Chest x-ray: Moderate sized right pleural effusion with associated atelectasis and/or infiltrate, Similar to old chest x-ray. However there was possible of progressive disease. Today the patient seemed alert but was little groggy He says that the shortness of breath is better he still coughing He doesn't complain of any abdominal pain, nausea and vomiting Objective - Vital Signs Vital signs: Vital Signs Temp 97.6 F 11/12/18 13:59 Pulse 71 11/12/18 13:59 Resp 18 11/12/18 13:59 BP 167/74 11/12/18 13:59 Pulse Ox 99 11/12/18 13:59 Intake & Output 11/11/18 11/12/18 11/12/18 18:59 06:59 18:59 Intake Total 850 Balance 850 Weight 90.718 kg Intake: Intake, IV Titration 850 Amount Sodium Chloride 0.9% 1, 850 000 ml @ 75 mls/hr IV . [id number] [facility] Rx#:[id number] Other: Voiding Method Diaper Diaper Incontinent Incontinent # Voids 1 1 3 - Exam On exam, alert and oriented x3. HEENT: Conjunctivae normal. eyes normal. NECK: No JVD. No thyroid enlargement. No LNs CARDIOVASCULAR: S1, S2 muffled. No murmur RESPIRATION: Breath sounds diminished in the bases. No rhonchi or crackles. No bronchial breathing. ABDOMEN: Soft, nontender . No guarding. no masses palpable. No ascites, No hepatosplenomegaly.Bowel sounds heard. LEGS: No edema. no swelling NERVOUS SYSTEM: Cranial N 2-12 grossly normal. Moves all 4 limbs. No focal deficits. No sensory deficit. No signs of cerebellar dysfucntion. Skin: no ulcer no rash Joints: Patient is having pain in the left knee on moment Lymphatic system. No LN neck axilla or groin. - Labs CBC & Chem 7: 11/11/18 11:38 11/11/18 11:38 Labs: Abnormal Lab Results - Last 24 Hours (Table) 11/11/18 11/11/18 11/12/18 Range/Units 17:04 20:33 11:32 POC Glucose (mg/dL) 121 H 115 H 148 H (75-99) mg/dL Microbiology - Last 24 Hours (Table) 11/11/18 11:48 Urine Culture - Final Urine,Catheterized 11/11/18 11:38 Blood Culture - Preliminary Blood No Growth after 24 hours Assessment and Plan Assessment: Altered mental status, mostly metabolic encephalopathy Persistent right sided pleural effusion with possible atelectasis/infiltrate Left knee pain Acute renal failure, on chronic kidney disease, stage IV-V Diabetes mellitus Essential hypertension Hyperlipidemia Diabetic neuropathy History of bilateral rectal, Chronic kidney disease History of colon cancer status post surgical resection Plan - Patient is having pain in the left knee nitros and removed. We'll get an x- ray to see - Continue antibiotics as per infectious disease recommendations - Nephrology following the patient for DERRICK - Continue rest of the medications - We'll follow up
--- NOTE | 2018-11-12 15:14 | CONS ---
CONSULTATION DATE OF CONSULTATION: 11/12/2018 This is is a 68-year-old gentleman, a very poor historian. He apparently came into the emergency room on November 11 complaining of changes in mental status. He apparently has a history of diabetes, hyperlipidemia, hypertension, chronic kidney disease, anemia, and gastric ulcer disease. He also has a history of colon cancer with surgery and possible chemoradiation. I was asked to see him because of a pleural effusion on the right side. He had a rather large right-sided pleural effusion. It is very difficult to get any history from him. He did really seem to be complaining of shortness of breath. He was not wearing any oxygen. He did not appear to be short of breath. There was no conversational dyspnea or use of accessory muscles or audible wheezing. The patient did undergo a right-sided thoracentesis at the bedside today. I removed 1200 mL of yellow brown fluid. It was sent to the laboratory for analysis. The patient tolerated the procedure well. Anyway, other than that, he does not really give any complaints. As I mentioned, he does not appear to have any respiratory difficulty or other issues at this time. HOME MEDICATIONS: Reviewed. They include Pravachol, sodium bicarbonate tablets, vitamin D2, eye drops, calcium, carvedilol, Protonix, Carafate, Demadex, Norvasc and Glucotrol XL. ALLERGIES: Denied. PAST MEDICAL HISTORY: Includes colon cancer, status post surgery, diabetes mellitus, hyperlipidemia, hypertension, chronic kidney disease, bilateral lower extremity neuropathy, diabetic ulcers and venostasis ulcers, cellulitis, osteomyelitis, diabetic retinopathy, glaucoma, bronchitis, and previous right elbow fracture. PAST SURGICAL HISTORY: Surgical history includes laser treatment for his diabetic retinopathy, sinus surgery, debridement of the lower extremity wound, and colon resection. SOCIAL HISTORY: Apparently negative for tobacco. No history about 2. No history to suggest alcohol or illicit drug use. Occupation history is that he is currently retired. Apparently, he did work at certain jobs in the past. Does not work currently. FAMILY HISTORY: Positive for both mother and father who were healthy. No mention of any medical issues or problems. Again, he is somewhat of a poor historian. Some of this history may not be accurate. Review of Systems. Given the above about being a poor historian. REVIEW OF SYSTEMS: Should be taken with a grain of salt, but he really denies any major issues. CONSTITUTIONAL: Negative neurologic, possible mental status changes HEENT negative cardiovascular negative pulmonary negative GI negative negative. RHEUMATOLOGIC negative. IMMUNOLOGIC negative. ENDOCRINOLOGIC: Negative. DERMATOLOGIC: Negative. PHYSICAL EXAMINATION: Current vital signs reviewed. Temperature 97.7 heart rate 68, respiratory rate, blood pressure 161/83 mean 109 and room air saturation 96%. Appears in no acute distress. HEENT examination is grossly unremarkable. Mucous membranes are moist. No supplemental oxygen noted. NECK: Supple. Full range of motion. No adenopathy or thyromegaly. Neck veins are flat. CARDIOVASCULAR examination reveals regular rhythm rate. Heart rate about 70 beats per minute. S1, S2 normal. No murmur. No S3, S4. Lungs revealed diminished breath sounds throughout the right chest. There is dullness at the right base. No wheezes or rhonchi. No crackles. Left chest is relatively normal-sounding. ABDOMEN: Soft. Bowel sounds are heard. EXTREMITIES reveal some edema. There are some chronic venostasis changes. SKIN: Without rash. NEUROLOGIC examination is difficult to assess but appears to be nonfocal. He does move all 4 extremities well. LABS: Reviewed. White count 10.6, hemoglobin 8.6, hematocrit 27.5, platelet count 320,000, PT/INR were 10.4 and 1.0. Venous blood gas shows a pCO2 of 36 and a pH of 7.31. Sodium 143, potassium 5.2, chloride 114, CO2 is 18, anion gap is 11, BUN and creatinine were 88 and 6.07, albumin 2.8, lipase 354, total protein 5.7. CK is 48. Urine shows 1+ protein, moderate blood, 57 RBCs, rare sediment, 1 WBC. LE and nitrate were both negative. A brain CT scan was done. It shows no acute intracranial abnormality. There is some atrophy and diffuse age-related small-vessel changes. The chest x-ray shows cardiomegaly with some chronic parenchymal changes and bilateral effusions right greater than left. Abdominal and pelvic CT shows possible acute cystitis and a right-sided pleural effusion. There is some atelectasis at the left lung base. The gallbladder ultrasound showed remarkably suboptimal study, but no acute cholecystitis. The chest ultrasound showed bilateral effusions, much greater on the right side than on the left side. The post thoracentesis chest x-ray shows significant improvement in the right-sided effusion without evidence of complication from pneumothorax. Medications are reviewed. ASSESSMENT: 1. Right-sided pleural effusion, status post right-sided thoracentesis with 1200 mL of fluid removed. This could represent infection and/or malignancy. 2. Mental status changes, of unclear etiology. This may be the patient's baseline. 3. History of colon cancer status post surgery for same. 4. Hyperlipidemia. 5. Hypertension. 6. Diabetes mellitus. 7. Glaucoma. 8. Diabetic retinopathy. 9. Chronic kidney disease. 10.Anemia of chronic disease. 11.History of cellulitis and osteomyelitis. 12.Previous lower extremity venostasis ulcers and amputation. PLAN: The patient's fluid was sent for analysis. The patient tolerated the procedure well. The postprocedure chest x-ray looked good. Will await the results of the fluid analysis. Additional recommendations and suggestions are forthcoming. Prognosis is guarded. MMODL / IJN: [id number] /
[2018-11-12 15:34] LABS: Color,BF Yellow
[2018-11-12 15:35] LABS: Appearance,BF Cloudy
--- NOTE | 2018-11-12 15:40 | XR ---
EXAMINATION TYPE: XR knee complete LT DATE OF EXAM: 11/12/2018 COMPARISON: NONE HISTORY: Pain TECHNIQUE: Four views are submitted. FINDINGS: Narrowing of the joint spaces are noted. There is a small suprapatellar joint effusion.. Osseous str uctures are intact. No acute fracture seen. Vascular calcifications are noted. IMPRESSION: 1. No acute fracture or dislocation. 2. Moderate arthritic changes.
[2018-11-12 16:09] LABS: Nucleated Cells, Body Fluid 200 /uL; RBC, Body Fluid 1700 /uL
[2018-11-12 16:18] LABS: Mononuclear WBC,Body Fluid 100 %; Total Cells Counted,Body Fluid 100
[2018-11-12 16:34] LABS: Glucose,Whole Blood 192 mg/dL (75-99)
[2018-11-12] MEDS: INSULIN ASPART (NovoLOG) 100 UNIT/ML VIAL SQ SCH ×2 (17:12→20:16)
[2018-11-12 20:05] LABS: Glucose,Whole Blood 184 mg/dL (75-99)
[2018-11-12] MEDS: PRAVASTATIN SODIUM 20 MG TAB PO SCH (20:17)
[2018-11-13 01:27] LABS: Total Protein, Body Fluid 2920 mg/dL
[2018-11-13] MEDS: SODIUM CHLORIDE 0.9% 1,000 ML IV SCH ×2 (05:56→19:37)
[2018-11-13 06:52] LABS: Glucose,Whole Blood 119 mg/dL (75-99)
[2018-11-13] MEDS: PIPERACILLIN-TAZOBACTAM 3.375 GM in SODIUM CHLORIDE 0.9% 100 ML IVPB SCH ×2 (06:52→22:00)
[2018-11-13] MEDS: CALCIUM ACETATE 667 MG CAP PO SCH ×3 (08:00→18:10)
[2018-11-13] MEDS: CARVEDILOL 6.25 MG TAB PO SCH ×2 (08:00→18:12)
[2018-11-13] MEDS: SODIUM BICARBONATE TAB 650 MG TAB PO SCH ×2 (08:00→21:59)
[2018-11-13] MEDS: SUCRALFATE 1 GM TAB PO SCH ×2 (08:00→18:10)
[2018-11-13] MEDS: amLODIPine 10 MG TAB PO SCH (08:00)
[2018-11-13 08:17] LABS: Anisocytosis Slight; HCT 28.6 % (39.0-53.0); HGB 8.9 gm/dL (13.0-17.5); Hypochromasia Marked; MCH 27.7 pg (25.0-35.0); MCHC 30.9 g/dL (31.0-37.0); MCV 89.6 fL (80.0-100.0); Mean Platelet Volume 7.1; Platelet Count 321 k/uL (150-450); RDW 17.4 % (11.5-15.5); WBC 12.1 k/uL (3.8-10.6)
[2018-11-13] MEDS: INSULIN ASPART (NovoLOG) 100 UNIT/ML VIAL SQ SCH ×4 (08:26→21:59)
[2018-11-13 08:36] LABS: Calcium 8.5 mg/dL (8.4-10.2)
[2018-11-13] MEDS: PANTOPRAZOLE 40 MG/10 ML VIAL IVP SCH (10:11)
--- NOTE | 2018-11-13 11:00 | P.PN ---
Subjective Progress Note Date: 11/13/18 Patient doing well today with no complaints of abdominal pain. Asking for ice cream to eat Objective - Vital Signs Vital signs: Vital Signs Temp 98.4 F 11/13/18 07:20 Pulse 95 11/13/18 07:20 Resp 18 11/13/18 07:20 BP 169/80 11/13/18 07:20 Pulse Ox 97 11/13/18 07:20 Intake & Output 11/12/18 11/13/18 11/13/18 18:59 06:59 18:59 Intake Total 680 Balance 680 Intake: Oral 680 Other: Voiding Method Diaper Incontinent Incontinent Incontinent # Voids 2 2 - Constitutional General appearance: Present: cooperative - Respiratory Details: Nonlabored - Gastrointestinal Gastrointestinal Comment(s): S/NT/ND - Psychiatric Psychiatric: Present: appropriate affect - Labs CBC & Chem 7: 11/13/18 07:50 11/13/18 07:50 Labs: Abnormal Lab Results - Last 24 Hours (Table) 11/12/18 11/12/18 11/12/18 Range/Units 11:32 16:32 20:03 WBC (3.8-10.6) k/uL RBC (4.30-5.90) m/uL Hgb (13.0-17.5) gm/dL Hct (39.0-53.0) % MCHC (31.0-37.0) g/dL RDW (11.5-15.5) % Chloride (98-107) mmol/L Carbon Dioxide (22-30) mmol/L BUN (9-20) mg/dL Creatinine (0.66-1.25) mg/dL Glucose (74-99) mg/dL POC Glucose (mg/dL) 148 H 192 H 184 H (75-99) mg/dL 11/13/18 11/13/18 11/13/18 Range/Units 06:50 07:50 07:50 WBC 12.1 H (3.8-10.6) k/uL RBC 3.20 L (4.30-5.90) m/uL Hgb 8.9 L (13.0-17.5) gm/dL Hct 28.6 L (39.0-53.0) % MCHC 30.9 L (31.0-37.0) g/dL RDW 17.4 H (11.5-15.5) % Chloride 115 H (98-107) mmol/L Carbon Dioxide 16 L (22-30) mmol/L BUN 75 H (9-20) mg/dL Creatinine 5.00 H (0.66-1.25) mg/dL Glucose 128 H (74-99) mg/dL POC Glucose (mg/dL) 119 H (75-99) mg/dL Microbiology - Last 24 Hours (Table) 11/12/18 13:10 Gram Stain - Preliminary Pleural Fluid Body Fluid Culture - Preliminary 11/12/18 13:10 Acid Fast Bacilli Smear - Final Pleural Fluid Acid Fast Bacilli Culture - Preliminary 11/12/18 13:10 Anaerobic Culture - Preliminary Pleural Fluid 11/12/18 13:10 Fungal Culture - Preliminary Pleural Fluid 11/11/18 11:48 Urine Culture - Final Urine,Catheterized 11/11/18 11:38 Blood Culture - Preliminary Blood No Growth after 24 hours Assessment and Plan Assessment: duodenal ulcer, duodenitis Plan: Continue PPI and Carafate. Diet as tolerated. No plans for surgical intervention. Please contact me if there are any further concerns.
[2018-11-13 11:06] LABS: Glucose,Whole Blood 160 mg/dL (75-99)
--- NOTE | 2018-11-13 11:19 | P.PN ---
Subjective Progress Note Date: 11/13/18 Principal diagnosis: Right sided pleural effusion. Patient is seen today 11/13/2018 in follow-up on the regular medical floor. He is currently sitting up in a chair at the bedside. Awake and alert in no acute distress. Maintaining O2 saturations in the 90s on room air. He's been afebrile. He is status post right-sided thoracentesis with 1200 ML's of fluid removed yesterday. Appears transudatIVE with a protein of 2.9. LDH 134. Cultures and pathology are pending. Objective - Vital Signs Vital signs: Vital Signs Temp 98.4 F 11/13/18 07:20 Pulse 95 11/13/18 07:20 Resp 18 11/13/18 07:20 BP 169/80 11/13/18 07:20 Pulse Ox 97 11/13/18 07:20 Intake & Output 11/12/18 11/13/18 11/13/18 18:59 06:59 18:59 Intake Total 680 Balance 680 Intake: Oral 680 Other: Voiding Method Diaper Incontinent Incontinent Incontinent # Voids 2 2 - Exam GENERAL EXAM: Alert, pleasant 68-year-old gentleman currently up in a chair at the bedside, comfortable in no apparent distress. On room air. HEAD: Normocephalic. EYES: Normal reaction of pupils, equal size. NOSE: Clear with pink turbinates. THROAT: No erythema or exudates. NECK: No masses, no JVD. CHEST: No chest wall deformity. LUNGS: Equal air entry with crackles in the bases. CVS: S1 and S2 normal with no audible murmur, regular rhythm. ABDOMEN: No hepatosplenomegaly, normal bowel sounds, no guarding or rigidity. SPINE: No scoliosis or deformity SKIN: No rashes CENTRAL NERVOUS SYSTEM: No focal deficits, tone is normal in all 4 extremities. EXTREMITIES: Noted amputations. There is no peripheral edema. No clubbing, no cyanosis. Peripheral pulses are intact. - Labs CBC & Chem 7: 11/13/18 07:50 11/13/18 07:50 Labs: Abnormal Lab Results - Last 24 Hours (Table) 11/12/18 11/12/18 11/12/18 Range/Units 11:32 16:32 20:03 WBC (3.8-10.6) k/uL RBC (4.30-5.90) m/uL Hgb (13.0-17.5) gm/dL Hct (39.0-53.0) % MCHC (31.0-37.0) g/dL RDW (11.5-15.5) % Chloride (98-107) mmol/L Carbon Dioxide (22-30) mmol/L BUN (9-20) mg/dL Creatinine (0.66-1.25) mg/dL Glucose (74-99) mg/dL POC Glucose (mg/dL) 148 H 192 H 184 H (75-99) mg/dL 11/13/18 11/13/18 11/13/18 Range/Units 06:50 07:50 07:50 WBC 12.1 H (3.8-10.6) k/uL RBC 3.20 L (4.30-5.90) m/uL Hgb 8.9 L (13.0-17.5) gm/dL Hct 28.6 L (39.0-53.0) % MCHC 30.9 L (31.0-37.0) g/dL RDW 17.4 H (11.5-15.5) % Chloride 115 H (98-107) mmol/L Carbon Dioxide 16 L (22-30) mmol/L BUN 75 H (9-20) mg/dL Creatinine 5.00 H (0.66-1.25) mg/dL Glucose 128 H (74-99) mg/dL POC Glucose (mg/dL) 119 H (75-99) mg/dL 11/13/18 Range/Units 11:04 WBC (3.8-10.6) k/uL RBC (4.30-5.90) m/uL Hgb (13.0-17.5) gm/dL Hct (39.0-53.0) % MCHC (31.0-37.0) g/dL RDW (11.5-15.5) % Chloride (98-107) mmol/L Carbon Dioxide (22-30) mmol/L BUN (9-20) mg/dL Creatinine (0.66-1.25) mg/dL Glucose (74-99) mg/dL POC Glucose (mg/dL) 160 H (75-99) mg/dL Microbiology - Last 24 Hours (Table) 11/12/18 13:10 Gram Stain - Preliminary Pleural Fluid Body Fluid Culture - Preliminary 11/12/18 13:10 Acid Fast Bacilli Smear - Final Pleural Fluid Acid Fast Bacilli Culture - Preliminary 11/12/18 13:10 Anaerobic Culture - Preliminary Pleural Fluid 11/12/18 13:10 Fungal Culture - Preliminary Pleural Fluid 11/11/18 11:48 Urine Culture - Final Urine,Catheterized 11/11/18 11:38 Blood Culture - Preliminary Blood No Growth after 24 hours Assessment and Plan Assessment: Impression: #1 Right-sided pleural effusion, status post right-sided thoracentesis with 1200 ML's of fluid removed. Pathology pending. #2 Altered mental status of unclear etiology. #3 History of colon cancer status post resection. #4 Hyperlipidemia. 5 Hypertension. #6 Diabetes mellitus. #7 Glaucoma. #8 Diabetic retinopathy. #9 Chronic kidney disease. #10 Anemia of chronic disease. #11 History of cellulitis and osteomyelitis. #12 previous lower extremity venous stasis ulcers and amputation. Plan: The patient was seen and evaluated by Dr. Casey. He is currently stable from the pulmonary standpoint. We'll continue to follow and make further recommendations based on his clinical status. I, the cosigning physician, performed a history & physical examination of the patient. Lungs sounds with crackles in the posterior bases. Maintaining good O2 saturations in the 90s on room air. I discussed the assessment and plan of care with my nurse practitioner, Riya Sorto. I attest to the above note as dictated by her.
--- NOTE | 2018-11-13 13:43 | P.PN ---
Subjective This is a pleasant 68 years old male with past medical history of diabetes mellitus, hypertension, hyperlipidemia, diabetic neuropathy, bilateral glaucoma, chronic kidney disease, history of colon cancer status post surgical resection. He presents with altered mental status. Patient is poor historian, when he asked he repeats his team and gives short unrelated answers. He is doesn't look tachypneic. He does not have specific complain of pain. On admissions patient is afebrile, blood pressure 155/100. Saturating 95% on 2 L. Labs showing WBC within normal limits at 10.6 K, hemoglobin 8.6, platelets 320. INR is 1.0. Creatinine 6.0. Potassium 5.2, sodium 143.. Liver enzymes not elevated, troponin less than 0.012, lipase 354, urinalysis showing RBCs 57. EKG showed sinus rhythm with frequent PVCs, QTC is 519. Abdomen/pelvis CT wit hout contrast: Small right sided pleural effusion with atelectasis and/or infiltrate, possible acute cystitis and duodenitis. Nonobstructive bowel gas pattern. Chest x-ray: Moderate sized right pleural effusion with associated atelectasis and/or infiltrate, Similar to old chest x-ray. However there was possible of progressive disease. Today the patient seemed alert but was little groggy He says that the shortness of breath is better he still coughing He doesn't complain of any abdominal pain, nausea and vomiting 11/13/2018 Patient sitting up on the chair He still slow to respond. He is still not able to move his lower extremities He's complaining of pain in the knee and says that they feel like cement not able to move them He does not complain of any chest pain racing heart, no cough no shortness of breath, he does not complain of any abdominal pain, nausea and vomiting, no diarrhea no constipation Objective - Vital Signs Vital signs: Vital Signs Temp 98.4 F 11/13/18 07:20 Pulse 95 11/13/18 07:20 Resp 18 11/13/18 07:20 BP 169/80 11/13/18 07:20 Pulse Ox 97 11/13/18 07:20 Intake & Output 11/12/18 11/13/18 11/13/18 18:59 06:59 18:59 Intake Total 920 Balance 920 Intake: Oral 920 Other: Voiding Method Diaper Incontinent Incontinent Incontinent # Voids 2 2 - Exam On exam, alert and oriented x3. HEENT: Conjunctivae normal. eyes normal. NECK: No JVD. No thyroid enlargement. No LNs CARDIOVASCULAR: S1, S2 muffled. No murmur RESPIRATION: Breath sounds diminished in the bases. No rhonchi or crackles. No bronchial breathing. ABDOMEN: Soft, nontender . No guarding. no masses palpable. No ascites, No hepatosplenomegaly.Bowel sounds heard. LEGS: No edema. no swelling NERVOUS SYSTEM: Cranial N 2-12 grossly normal. Moves all 4 limbs. No focal deficits. No sensory deficit. No signs of cerebellar dysfucntion. Skin: no ulcer no rash Joints: Patient is having pain in the left knee on moment Lymphatic system. No LN neck axilla or groin. - Labs CBC & Chem 7: 11/13/18 07:50 11/13/18 07:50 Labs: Abnormal Lab Results - Last 24 Hours (Table) 11/12/18 11/12/18 11/13/18 Range/Units 16:32 20:03 06:50 WBC (3.8-10.6) k/uL RBC (4.30-5.90) m/uL Hgb (13.0-17.5) gm/dL Hct (39.0-53.0) % MCHC (31.0-37.0) g/dL RDW (11.5-15.5) % Chloride (98-107) mmol/L Carbon Dioxide (22-30) mmol/L BUN (9-20) mg/dL Creatinine (0.66-1.25) mg/dL Glucose (74-99) mg/dL POC Glucose (mg/dL) 192 H 184 H 119 H (75-99) mg/dL 11/13/18 11/13/18 11/13/18 Range/Units 07:50 07:50 11:04 WBC 12.1 H (3.8-10.6) k/uL RBC 3.20 L (4.30-5.90) m/uL Hgb 8.9 L (13.0-17.5) gm/dL Hct 28.6 L (39.0-53.0) % MCHC 30.9 L (31.0-37.0) g/dL RDW 17.4 H (11.5-15.5) % Chloride 115 H (98-107) mmol/L Carbon Dioxide 16 L (22-30) mmol/L BUN 75 H (9-20) mg/dL Creatinine 5.00 H (0.66-1.25) mg/dL Glucose 128 H (74-99) mg/dL POC Glucose (mg/dL) 160 H (75-99) mg/dL Microbiology - Last 24 Hours (Table) 11/12/18 13:10 Gram Stain - Preliminary Pleural Fluid Body Fluid Culture - Preliminary 11/12/18 13:10 Acid Fast Bacilli Smear - Final Pleural Fluid Acid Fast Bacilli Culture - Preliminary 11/12/18 13:10 Anaerobic Culture - Preliminary Pleural Fluid 11/12/18 13:10 Fungal Culture - Preliminary Pleural Fluid 11/11/18 11:48 Urine Culture - Final Urine,Catheterized 11/11/18 11:38 Blood Culture - Preliminary Blood No Growth after 24 hours Assessment and Plan Assessment: Altered mental status, mostly metabolic encephalopathy Persistent right sided pleural effusion with possible atelectasis/infiltrate Left knee pain Acute renal failure, on chronic kidney disease, stage IV-V Diabetes mellitus Essential hypertension Hyperlipidemia Diabetic neuropathy History of bilateral rectal, Chronic kidney disease History of colon cancer status post surgical resection Plan 11/12/2018 - Patient is having pain in the left knee nitros and removed. We'll get an x- ray to see - Continue antibiotics as per infectious disease recommendations - Nephrology following the patient for DERRICK - Continue rest of the medications - We'll follow up 11/13/2018 - Nephrology following the patient. His creatinine keeps on creeping up. Need to decide if the patient will end up having dialysis or no. Patient yet to make that decision - He is very weak in the legs and is complaining of pain in the hips. We'll try to get up and walk today if he cannot will probably end up getting an MRI of the lumbar spine and the hip to diagnose any pathology - We will resume rest of the medical care - DVT and GI prophylaxis - We'll follow the patient
--- NOTE | 2018-11-13 13:49 | P.PN ---
Subjective Patient is seen in follow-up for acute kidney injury on chronic kidney disease. Patient has chronic kidney disease stage V with baseline creatinine near for outpatient. Creatinine today is 5.0. Denies active chest pain or shortness of breath. He has been voiding. He is maintained on IV fluids. Patient is somewhat confused. Vital signs are stable. General: The patient appeared well nourished and normally developed. HEENT: Head exam is unremarkable. Neck is without jugular venous distension. LUNGS: Lungs are clear to auscultation and percussion. Breath sounds decreased. HEART: Rate and Rhythm are regular. First and second heart sounds normal. No murmurs, rubs or gallops. ABDOMEN: Abdominal exam reveals normal bowel sounds. Non-tender and non- distended. No evidence of peritonitis. EXTREMITITES: No clubbing, cyanosis, or edema. Chronic changes noted. Objective - Vital Signs Vital signs: Vital Signs Temp 98.4 F 11/13/18 07:20 Pulse 95 11/13/18 07:20 Resp 18 11/13/18 07:20 BP 169/80 11/13/18 07:20 Pulse Ox 97 11/13/18 07:20 Intake & Output 11/12/18 11/13/18 11/13/18 18:59 06:59 18:59 Intake Total 920 Balance 920 Intake: Oral 920 Other: Voiding Method Diaper Incontinent Incontinent Incontinent # Voids 2 2 - Labs CBC & Chem 7: 11/13/18 07:50 11/13/18 07:50 Labs: Abnormal Lab Results - Last 24 Hours (Table) 11/12/18 11/12/18 11/13/18 Range/Units 16:32 20:03 06:50 WBC (3.8-10.6) k/uL RBC (4.30-5.90) m/uL Hgb (13.0-17.5) gm/dL Hct (39.0-53.0) % MCHC (31.0-37.0) g/dL RDW (11.5-15.5) % Chloride (98-107) mmol/L Carbon Dioxide (22-30) mmol/L BUN (9-20) mg/dL Creatinine (0.66-1.25) mg/dL Glucose (74-99) mg/dL POC Glucose (mg/dL) 192 H 184 H 119 H (75-99) mg/dL 11/13/18 11/13/18 11/13/18 Range/Units 07:50 07:50 11:04 WBC 12.1 H (3.8-10.6) k/uL RBC 3.20 L (4.30-5.90) m/uL Hgb 8.9 L (13.0-17.5) gm/dL Hct 28.6 L (39.0-53.0) % MCHC 30.9 L (31.0-37.0) g/dL RDW 17.4 H (11.5-15.5) % Chloride 115 H (98-107) mmol/L Carbon Dioxide 16 L (22-30) mmol/L BUN 75 H (9-20) mg/dL Creatinine 5.00 H (0.66-1.25) mg/dL Glucose 128 H (74-99) mg/dL POC Glucose (mg/dL) 160 H (75-99) mg/dL Microbiology - Last 24 Hours (Table) 11/11/18 11:38 Blood Culture - Preliminary Blood No Growth after 48 hours 11/12/18 13:10 Gram Stain - Preliminary Pleural Fluid Body Fluid Culture - Preliminary 11/12/18 13:10 Acid Fast Bacilli Smear - Final Pleural Fluid Acid Fast Bacilli Culture - Preliminary 11/12/18 13:10 Anaerobic Culture - Preliminary Pleural Fluid 11/12/18 13:10 Fungal Culture - Preliminary Pleural Fluid 11/11/18 11:48 Urine Culture - Final Urine,Catheterized Assessment and Plan Plan: Assessment: 1. Acute kidney injury mostly prerenal improving with IV hydration. Creatinine was over 6 on admission and is 5.0 today. 2. Chronic kidney disease stage V. Baseline creatinine in the range of 4-5 outpatient. 3. Right-sided pleural effusion status post thoracentesis with 1.5 L removed. 4. Anemia of chronic kidney disease. Patient had an episode of GI bleed recently. 5. Hypertension with chronic kidney disease. Controlled. 6. Chronic kidney disease mineral bone disease maintained on PhosLo. 7. Metabolic acidosis secondary to chronic kidney disease and IV fluids. 8. Altered mental status. There is concern for uremia. Plan: Maintain normal saline at 75 mL an hour. Increase dose of oral sodium bicarbonate. Add Aranesp. Check iron studies. Renal replacement therapy has been discussed with the patient for almost one year now. Currently he states he will discuss with his friend Xavi and then decide if he was to proceed or not. If patient is agreeable, will consult vascular surgery and initiate renal replacement therapy.
[2018-11-13] MEDS ORDERED: DARBEPOETIN ALFA 40 MCG/0.4 ML SYRINGE SQ SCH (14:00)
[2018-11-13] MEDS ORDERED: SODIUM CHLORIDE 0.9% 250 ML IV ONE (17:15)
[2018-11-13] MEDS ORDERED: fentaNYL (PF) 50 MCG/ML 2 ML AMP IV ONE (17:20)
[2018-11-13] MEDS ORDERED: LIDOCAINE 1% INJ 10MG/ML (20 ML MDV) SQ ONE (17:22)
[2018-11-13] MEDS ORDERED: MIDAZOLAM (PF) 2 MG/2 ML VIAL IVP ONE (17:25)
--- NOTE | 2018-11-13 18:09 | P.GSCN ---
History of Present Illness History of present illness: 68-year-old white male, history of 4 acute chronic renal failure, hypertension, chronic anemia, some mental status change I was consulted for placement of a dialysis catheter. Patient has a creatinine of 5 no history of shortness of breath diabetes Neckexaminationneckissupplenobruitappreciated Chestclearfirstandsecondsoundnormal Abdomenissoftnontender Vascularexaminationbrachialradi alfemoralpulsesarepresentimpressionisacutechronicrenalfailureplanisplacementofad ialysiscatheterriskandcomplicationdiscussed Past Medical History Past Medical History: Cancer, Diabetes Mellitus, Eye Disorder, Hyperlipidemia, Hypertension, Renal Disease, Skin Disorder Additional Past Medical History / Comment(s): NIDDM type II, neuropathy bilateral feet, pt states he has current sores on bilateral lower legs/feet, past diabetic ulcers/venous stasis ulcers legs/feet and L foot cellulitis with 5th toe osteomyelitis in 2013, diabetic retinopathy bilaterally with surgery, bilateral glaucoma, chronic kidney disease, chronic anemia, past colon cancer with surgery-pt cannot recall if he had chemo/radiation, bronchitis, past R elbow fracture, allergic rhinitis. History of Any Multi-Drug Resistant Organisms: None Reported Past Surgical History: Bowel Resection Additional Past Surgical History / Comment(s): Colon resection, laser treatment for diabetic retinopathy, sinus surgery, R anterior lower leg wound debridement. Past Anesthesia/Blood Transfusion Reactions: No Reported Reaction Past Psychological History: No Psychological Hx Reported Smoking Status: Never smoker - Past Family History Father Family Medical History: No Reported History Additional Family Medical History / Comment(s): Father was healthy Mother Family Medical History: No Reported History Additional Family Medical History / Comment(s): Mother was healthy Medications and Allergies Home Medications Medication Instructions Recorded Confirmed Type Pravastatin Sodium [Pravachol] 20 mg PO HS 03/21/14 11/11/18 History Sodium Bicarbonate Tab 650 mg PO BID 07/15/14 11/11/18 History Ergocalciferol (Vitamin D2) 50,000 unit PO Q7D 11/04/18 11/11/18 History [Drisdol] Timolol 0.5% Ophth Soln [Timoptic 1 drop BOTH EYES BID 11/04/18 11/11/18 History 0.5% Ophth Soln] Calcium Acetate [PhosLo] 667 mg PO TID #90 cap 11/08/18 11/11/18 Rx Carvedilol [Coreg] 6.25 mg PO BID #60 tablet 11/08/18 11/11/18 Rx Pantoprazole [Protonix] 40 mg PO AC-BRKFST #30 tablet. 11/08/18 11/11/18 Rx Sucralfate [Carafate] 1 gm PO AC-BID #60 tab 11/08/18 11/11/18 Rx Torsemide [Demadex] 20 mg PO DAILY #60 tab 11/08/18 11/11/18 Rx amLODIPine [Norvasc] 10 mg PO DAILY #30 tab 11/08/18 11/11/18 Rx glipiZIDE XL [Glucotrol XL] 5 mg PO DAILY #30 tab.er.24 11/08/18 11/11/18 Rx Allergies Allergy/AdvReac Type Severity Reaction Status Date / Time No Known Allergies Allergy Verified 11/11/18 10:57 Surgical - Exam Vital Signs Temp Pulse Resp BP Pulse Ox 98.6 F 90 20 155/100 95 11/11/18 10:29 11/11/18 10:29 11/11/18 10:29 11/11/18 10:29 11/11/18 10:29 Results - Labs 11/13/18 07:50 11/13/18 07:50 Abnormal Lab Results - Last 24 Hours (Table) 11/12/18 11/13/18 11/13/18 Range/Units 20:03 06:50 07:50 WBC 12.1 H (3.8-10.6) k/uL RBC 3.20 L (4.30-5.90) m/uL Hgb 8.9 L (13.0-17.5) gm/dL Hct 28.6 L (39.0-53.0) % MCHC 30.9 L (31.0-37.0) g/dL RDW 17.4 H (11.5-15.5) % Chloride (98-107) mmol/L Carbon Dioxide (22-30) mmol/L BUN (9-20) mg/dL Creatinine (0.66-1.25) mg/dL Glucose (74-99) mg/dL POC Glucose (mg/dL) 184 H 119 H (75-99) mg/dL 11/13/18 11/13/18 Range/Units 07:50 11:04 WBC (3.8-10.6) k/uL RBC (4.30-5.90) m/uL Hgb (13.0-17.5) gm/dL Hct (39.0-53.0) % MCHC (31.0-37.0) g/dL RDW (11.5-15.5) % Chloride 115 H (98-107) mmol/L Carbon Dioxide 16 L (22-30) mmol/L BUN 75 H (9-20) mg/dL Creatinine 5.00 H (0.66-1.25) mg/dL Glucose 128 H (74-99) mg/dL POC Glucose (mg/dL) 160 H (75-99) mg/dL Microbiology - Last 24 Hours (Table) 11/11/18 11:38 Blood Culture - Preliminary Blood No Growth after 48 hours 11/12/18 13:10 Gram Stain - Preliminary Pleural Fluid Body Fluid Culture - Preliminary 11/12/18 13:10 Acid Fast Bacilli Smear - Final Pleural Fluid Acid Fast Bacilli Culture - Preliminary 11/12/18 13:10 Anaerobic Culture - Preliminary Pleural Fluid 11/12/18 13:10 Fungal Culture - Preliminary Pleural Fluid 11/11/18 11:48 Urine Culture - Final Urine,Catheterized Diabetes panel 11/13/18 Range/Units 07:50 Sodium 142 (137-145) mmol/L Potassium 5.0 (3.5-5.1) mmol/L Chloride 115 H (98-107) mmol/L Carbon Dioxide 16 L (22-30) mmol/L BUN 75 H (9-20) mg/dL Creatinine 5.00 H (0.66-1.25) mg/dL Glucose 128 H (74-99) mg/dL Calcium 8.5 (8.4-10.2) mg/dL Calcium panel 11/13/18 Range/Units 07:50 Calcium 8.5 (8.4-10.2) mg/dL Pituitary panel 11/13/18 Range/Units 07:50 Sodium 142 (137-145) mmol/L Potassium 5.0 (3.5-5.1) mmol/L Chloride 115 H (98-107) mmol/L Carbon Dioxide 16 L (22-30) mmol/L BUN 75 H (9-20) mg/dL Creatinine 5.00 H (0.66-1.25) mg/dL Glucose 128 H (74-99) mg/dL Calcium 8.5 (8.4-10.2) mg/dL Adrenal panel 11/13/18 Range/Units 07:50 Sodium 142 (137-145) mmol/L Potassium 5.0 (3.5-5.1) mmol/L Chloride 115 H (98-107) mmol/L Carbon Dioxide 16 L (22-30) mmol/L BUN 75 H (9-20) mg/dL Creatinine 5.00 H (0.66-1.25) mg/dL Glucose 128 H (74-99) mg/dL Calcium 8.5 (8.4-10.2) mg/dL
[2018-11-13 18:10] LABS: Glucose,Whole Blood 151 mg/dL (75-99)
--- NOTE | 2018-11-13 18:19 | P.PCN ---
Description of Procedure: Preoperative diagnoses is acute chronic renal failure Postoperative diagnosis the same Procedure patient brought to the heart cath room neck was prepped and draped applied to start manner. Ultrasound-guided micropuncture introducer right jugular vein and micropuncture guidewire was passed check and the C-arm control then replaced a 4-Kazakh sheath. Through the sheath we placed a guidewire which was parked at the inferior vena cava after that tunnel was created through the tunnel we brought onto 3 same dialysis catheter to the neck area then we passed a dilator on the top of guidewire and then we passed a she's on the top of the guidewire through the sheath we introduced the dialysis catheter sheath was removed tip of the catheter was at the junction of superior vena cava and atrium. Flushed with heparin saline and this catheter was secured with Vicryl and nylon patient towards the procedure well. Sedation time due to 9 minutes patient transferred to the room in satisfactory condition
[2018-11-13 18:35] LABS: Iron Saturation 12.44 (15.00-50.00)
--- NOTE | 2018-11-13 19:23 | XR ---
EXAMINATION: XR chest 1V DATE AND TIME: 11/13/2018 6:36 PM CLINICAL INDICATION: PHH; new dialysis catheter TECHNIQUE: Departmental protocol COMPARISON: 11/12/2018 at 1:38 PM FINDINGS: Right IJ dialysis catheter has been placed since the prior study, with tip superimposed over the cavo atrial junction. There is no pneumothorax. Enlarged cardiac silhouette unchanged. Right pleural effusion redemonstrated. Bilaterally-elevated hemidiaphragms consistent with low lung inflation at the moment of X-ray exposur e. There appears to be partial right lower lung zone atelectasis, likely atelectasis. IMPRESSION: New dialysis catheter; post procedure radiograph.
[2018-11-13 20:36] LABS: Glucose,Whole Blood 139 mg/dL (75-99)
[2018-11-13] MEDS: PRAVASTATIN SODIUM 20 MG TAB PO SCH (21:59)
[2018-11-14 06:55] LABS: Glucose,Whole Blood 110 mg/dL (75-99)
[2018-11-14] MEDS: INSULIN ASPART (NovoLOG) 100 UNIT/ML VIAL SQ SCH ×4 (06:57→21:10)
[2018-11-14 08:39] LABS: Calcium 8.8 mg/dL (8.4-10.2); Magnesium 1.7 mg/dL (1.6-2.3); Potassium 5.3 mmol/L (3.5-5.1)
--- NOTE | 2018-11-14 09:28 | IR ---
Fluoroscopy HISTORY: Dialysis catheter placement 0.2 minutes fluoroscopy time supplied to the referring clinician. 189 intraoperative C-arm images d ocument the procedure. See dictated report from vascular surgery.
[2018-11-14] MEDS: SUCRALFATE 1 GM TAB PO SCH ×2 (09:34→17:40)
[2018-11-14] MEDS: SODIUM CHLORIDE 0.9% 1,000 ML IV SCH ×2 (09:34→21:12)
[2018-11-14] MEDS: CARVEDILOL 6.25 MG TAB PO SCH ×2 (09:34→17:35)
[2018-11-14] MEDS: SODIUM BICARBONATE TAB 650 MG TAB PO SCH ×2 (09:34→21:11)
[2018-11-14] MEDS: amLODIPine 10 MG TAB PO SCH (09:34)
[2018-11-14] MEDS: CALCIUM ACETATE 667 MG CAP PO SCH ×3 (09:34→17:35)
[2018-11-14] MEDS: PANTOPRAZOLE 40 MG/10 ML VIAL IVP SCH (10:48)
[2018-11-14 11:19] LABS: Glucose,Whole Blood 267 mg/dL (75-99)
--- NOTE | 2018-11-14 11:24 | P.PN ---
Subjective This is a pleasant 68 years old male with past medical history of diabetes mellitus, hypertension, hyperlipidemia, diabetic neuropathy, bilateral glaucoma, chronic kidney disease, history of colon cancer status post surgical resection. He presents with altered mental status. Patient is poor historian, when he asked he repeats his team and gives short unrelated answers. He is doesn't look tachypneic. He does not have specific complain of pain. On admissions patient is afebrile, blood pressure 155/100. Saturating 95% on 2 L. Labs showing WBC within normal limits at 10.6 K, hemoglobin 8.6, platelets 320. INR is 1.0. Creatinine 6.0. Potassium 5.2, sodium 143.. Liver enzymes not elevated, troponin less than 0.012, lipase 354, urinalysis showing RBCs 57. EKG showed sinus rhythm with frequent PVCs, QTC is 519. Abdomen/pelvis CT wit hout contrast: Small right sided pleural effusion with atelectasis and/or infiltrate, possible acute cystitis and duodenitis. Nonobstructive bowel gas pattern. Chest x-ray: Moderate sized right pleural effusion with associated atelectasis and/or infiltrate, Similar to old chest x-ray. However there was possible of progressive disease. Today the patient seemed alert but was little groggy He says that the shortness of breath is better he still coughing He doesn't complain of any abdominal pain, nausea and vomiting 11/13/2018 Patient sitting up on the chair He still slow to respond. He is still not able to move his lower extremities He's complaining of pain in the knee and says that they feel like cement not able to move them He does not complain of any chest pain racing heart, no cough no shortness of breath, he does not complain of any abdominal pain, nausea and vomiting, no diarrhea no constipation 11/14/2018 Patient sitting on the chair. He apparently walked today He's not complaining of any pain in his legs today and is moving his legs nicely without any pain He does not complain of any chest pain racing heart, no cough no shortness of breath. He seems more alert and oriented Objective - Vital Signs Vital signs: Vital Signs Temp 98.4 F 11/14/18 07:00 Pulse 90 11/14/18 07:00 Resp 16 11/14/18 07:00 BP 157/72 11/14/18 07:00 Pulse Ox 98 11/14/18 07:00 Intake & Output 11/13/18 11/14/18 11/14/18 18:59 06:59 18:59 Intake Total 1020 Output Total 375 Balance 645 Intake: IV 100 Oral 920 Output: Urine 375 Other: Voiding Method Incontinent Diaper Incontinent # Voids 1 # Bowel Movements 1 - Exam On exam, alert and oriented x3. HEENT: Conjunctivae normal. eyes normal. NECK: No JVD. No thyroid enlargement. No LNs CARDIOVASCULAR: S1, S2 muffled. No murmur RESPIRATION: Breath sounds diminished in the bases. No rhonchi or crackles. No bronchial breathing. ABDOMEN: Soft, nontender . No guarding. no masses palpable. No ascites, No hepatosplenomegaly.Bowel sounds heard. LEGS: No edema. no swelling NERVOUS SYSTEM: Cranial N 2-12 grossly normal. Moves all 4 limbs. No focal deficits. No sensory deficit. No signs of cerebellar dysfucntion. Skin: no ulcer no rash Joints: Patient is having pain in the left knee on moment Lymphatic system. No LN neck axilla or groin. - Labs CBC & Chem 7: 11/13/18 07:50 11/14/18 07:31 Labs: Abnormal Lab Results - Last 24 Hours (Table) 11/13/18 11/13/18 11/13/18 Range/Units 07:50 18:09 20:34 Potassium (3.5-5.1) mmol/L Chloride (98-107) mmol/L Carbon Dioxide (22-30) mmol/L BUN (9-20) mg/dL Creatinine (0.66-1.25) mg/dL Glucose (74-99) mg/dL POC Glucose (mg/dL) 151 H 139 H (75-99) mg/dL Iron 27 L (65-175) ug/dL TIBC 217 L (228-460) ug/dL Iron Saturation 12.44 L (15.00-50.00) 11/14/18 11/14/18 11/14/18 Range/Units 06:53 07:31 11:17 Potassium 5.3 H (3.5-5.1) mmol/L Chloride 112 H (98-107) mmol/L Carbon Dioxide 17 L (22-30) mmol/L BUN 67 H (9-20) mg/dL Creatinine 4.64 H (0.66-1.25) mg/dL Glucose 108 H (74-99) mg/dL POC Glucose (mg/dL) 110 H 267 H (75-99) mg/dL Iron (65-175) ug/dL TIBC (228-460) ug/dL Iron Saturation (15.00-50.00) Microbiology - Last 24 Hours (Table) 11/11/18 11:38 Blood Culture - Preliminary Blood No Growth after 48 hours 11/12/18 13:10 Gram Stain - Preliminary Pleural Fluid Body Fluid Culture - Preliminary Assessment and Plan Assessment: Altered mental status, mostly metabolic encephalopathy Persistent right sided pleural effusion with possible atelectasis/infiltrate Left knee pain Acute renal failure, on chronic kidney disease, stage IV-V Diabetes mellitus Essential hypertension Hyperlipidemia Diabetic neuropathy History of bilateral rectal, Chronic kidney disease History of colon cancer status post surgical resection Plan 11/12/2018 - Patient is having pain in the left knee nitros and removed. We'll get an x- ray to see - Continue antibiotics as per infectious disease recommendations - Nephrology following the patient for DERRICK - Continue rest of the medications - We'll follow up 11/13/2018 - Nephrology following the patient. His creatinine keeps on creeping up. Need to decide if the patient will end up having dialysis or no. Patient yet to make that decision - He is very weak in the legs and is complaining of pain in the hips. We'll try to get up and walk today if he cannot will probably end up getting an MRI of the lumbar spine and the hip to diagnose any pathology - We will resume rest of the medical care - DVT and GI prophylaxis - We'll follow the patient 11/14/2018 - Patient had a permacath placed yesterday. Will be getting first dialysis session today - He seems more responsive today - We'll see her response to the dialysis sessions. He'll probably need set up for outpatient dialysis. Appreciate nephrology recommendations - We'll continue rest of the medical care - We'll follow the patient
--- NOTE | 2018-11-14 11:24 | P.PN ---
Subjective Patient is seen in follow-up for acute kidney injury on chronic kidney disease. Patient has chronic kidney disease stage V with baseline creatinine near 4 outpatient. Creatinine today is 4.64. Denies active chest pain or shortness of breath. He has been voiding. He is maintained on IV fluids. Patient is somewhat confused. Vital signs are stable. General: The patient appeared well nourished and normally developed. HEENT: Head exam is unremarkable. Neck is without jugular venous distension. LUNGS: Lungs are clear to auscultation and percussion. Breath sounds decreased. HEART: Rate and Rhythm are regular. First and second heart sounds normal. No murmurs, rubs or gallops. ABDOMEN: Abdominal exam reveals normal bowel sounds. Non-tender and non- distended. No evidence of peritonitis. EXTREMITITES: No clubbing, cyanosis, or edema. Chronic changes noted. Objective - Vital Signs Vital signs: Vital Signs Temp 98.4 F 11/14/18 07:00 Pulse 90 11/14/18 07:00 Resp 16 11/14/18 07:00 BP 157/72 11/14/18 07:00 Pulse Ox 98 11/14/18 07:00 Intake & Output 11/13/18 11/14/18 11/14/18 18:59 06:59 18:59 Intake Total 1020 Output Total 375 Balance 645 Intake: IV 100 Oral 920 Output: Urine 375 Other: Voiding Method Incontinent Diaper Incontinent # Voids 1 # Bowel Movements 1 - Labs CBC & Chem 7: 11/13/18 07:50 11/14/18 07:31 Labs: Abnormal Lab Results - Last 24 Hours (Table) 11/13/18 11/13/18 11/13/18 Range/Units 07:50 18:09 20:34 Potassium (3.5-5.1) mmol/L Chloride (98-107) mmol/L Carbon Dioxide (22-30) mmol/L BUN (9-20) mg/dL Creatinine (0.66-1.25) mg/dL Glucose (74-99) mg/dL POC Glucose (mg/dL) 151 H 139 H (75-99) mg/dL Iron 27 L (65-175) ug/dL TIBC 217 L (228-460) ug/dL Iron Saturation 12.44 L (15.00-50.00) 11/14/18 11/14/18 11/14/18 Range/Units 06:53 07:31 11:17 Potassium 5.3 H (3.5-5.1) mmol/L Chloride 112 H (98-107) mmol/L Carbon Dioxide 17 L (22-30) mmol/L BUN 67 H (9-20) mg/dL Creatinine 4.64 H (0.66-1.25) mg/dL Glucose 108 H (74-99) mg/dL POC Glucose (mg/dL) 110 H 267 H (75-99) mg/dL Iron (65-175) ug/dL TIBC (228-460) ug/dL Iron Saturation (15.00-50.00) Microbiology - Last 24 Hours (Table) 11/11/18 11:38 Blood Culture - Preliminary Blood No Growth after 48 hours 11/12/18 13:10 Gram Stain - Preliminary Pleural Fluid Body Fluid Culture - Preliminary Assessment and Plan Plan: Assessment: 1. Acute kidney injury mostly prerenal improving with IV hydration. Creatinine was over 6 on admission and is 4.64 today. 2. Chronic kidney disease stage V. Baseline creatinine in the range of 4-5 outpatient. 3. Right-sided pleural effusion status post thoracentesis with 1.5 L removed. 4. Anemia of chronic kidney disease. Patient had an episode of GI bleed recently. Iron deficiency noted. Also on Aranesp. 5. Hypertension with chronic kidney disease. Controlled. 6. Chronic kidney disease mineral bone disease maintained on PhosLo. 7. Metabolic acidosis secondary to chronic kidney disease and IV fluids. 8. Altered mental status. There is concern for uremia. Plan: Maintain normal saline at 75 mL an hour. Maintain oral sodium bicarbonate. IV iron 3 doses. First dose today. Patient had permacath placed on November 13. Scheduled for first treatment of hemodialysis today. account manager [employer] following to set up outpatient hemodialysis.
[2018-11-14] MEDS: PIPERACILLIN-TAZOBACTAM 3.375 GM in SODIUM CHLORIDE 0.9% 100 ML IVPB SCH ×2 (12:22→21:11)
[2018-11-14] MEDS: SODIUM FERRIC GLUCONAT-SUCROSE 125 MG in SODIUM CHLORIDE 0.9% 100 ML IVPB SCH (14:03)
--- NOTE | 2018-11-14 15:13 | P.PN ---
Subjective Progress Note Date: 11/14/18 Principal diagnosis: Right sided pleural effusion Patient is seen today 11/13/2018 in follow-up on the regular medical floor. He is currently sitting up in a chair at the bedside. Awake and alert in no acute distress. Maintaining O2 saturations in the 90s on room air. He's been afebrile. He is status post right-sided thoracentesis with 1200 ML's of fluid removed yesterday. Appears transudatIVE with a protein of 2.9. LDH 134. Cultures and pathology are pending. On 11/14/2018 patient seen in follow-up in medical surgical floor, he is resting comfortably in bed, he is having his first hemodialysis treatment today, he is on room air, pulse ox is 99%, hemodynamically stable, he is afebrile. Complaints of shortness of breath, no chest pain, pleural fluid cytology is pending. Yesterday's follow-up chest x-ray showed partial right lower lung zone atelectasis, and right pleural effusion. Today's labs have been reviewed, showing serum sodium of 139, potassium is 5.3, chloride was 112, CO2 17, BUN was 67 and creatinine is 4.64. Anticipate improvement in the amount of pleural effusion with the dialysis treatments. Patient is asymptomatic. No focal cultures are negative thus far, blood culture showed no growth, pleural fluid analysis revealed transudative fluid Objective - Vital Signs Vital signs: Vital Signs Temp 97.4 F L 11/14/18 14:14 Pulse 78 11/14/18 14:14 Resp 15 11/14/18 14:14 BP 121/55 11/14/18 14:14 Pulse Ox 99 11/14/18 14:14 Intake & Output 11/13/18 11/14/18 11/14/18 18:59 06:59 18:59 Intake Total 1020 Output Total 375 Balance 645 Intake: IV 100 Oral 920 Output: Urine 375 Other: Voiding Method Incontinent Diaper Diaper Incontinent Incontinent # Voids 1 # Bowel Movements 1 - Exam GENERAL EXAM: Alert, pleasant, 68-year-old white male, laying in bed, hemodialysis treatment is in progress, comfortable in no apparent distress. HEAD: Normocephalic/atraumatic. EYES: Normal reaction of pupils, equal size. Conjunctiva pink, sclera white. NOSE: Clear with pink turbinates. THROAT: No erythema or exudates. NECK: No masses, no JVD, no thyroid enlargement, no adenopathy. CHEST: No chest wall deformity. Symmetrical expansion. Right subclavian h emodialysis catheter in place LUNGS: Equal air entry with no crackles, wheeze, rhonchi or dullness. Diminished breath sounds at the bases CVS: Regular rate and rhythm, normal S1 and S2, no gallops, no murmurs, no rubs ABDOMEN: Soft, nontender. No hepatosplenomegaly, normal bowel sounds, no guarding or rigidity. EXTREMITIES: No clubbing, 1+ lower extremity edema with chronic venous stasis changes and scaling of the skin on lower extremities, no cyanosis, 2+ pulses and upper and lower extremities. MUSCULOSKELETAL: Muscle strength and tone normal. SPINE: No scoliosis or deformity SKIN: No rashes CENTRAL NERVOUS SYSTEM: Alert and oriented -3. No focal deficits, tone is normal in all 4 extremities. PSYCHIATRIC: Alert and oriented -3. Appropriate affect. Intact judgment and insight. - Labs CBC & Chem 7: 11/13/18 07:50 11/14/18 07:31 Labs: Abnormal Lab Results - Last 24 Hours (Table) 11/13/18 11/13/18 11/13/18 Range/Units 07:50 18:09 20:34 Potassium (3.5-5.1) mmol/L Chloride (98-107) mmol/L Carbon Dioxide (22-30) mmol/L BUN (9-20) mg/dL Creatinine (0.66-1.25) mg/dL Glucose (74-99) mg/dL POC Glucose (mg/dL) 151 H 139 H (75-99) mg/dL Iron 27 L (65-175) ug/dL TIBC 217 L (228-460) ug/dL Iron Saturation 12.44 L (15.00-50.00) 11/14/18 11/14/18 11/14/18 Range/Units 06:53 07:31 11:17 Potassium 5.3 H (3.5-5.1) mmol/L Chloride 112 H (98-107) mmol/L Carbon Dioxide 17 L (22-30) mmol/L BUN 67 H (9-20) mg/dL Creatinine 4.64 H (0.66-1.25) mg/dL Glucose 108 H (74-99) mg/dL POC Glucose (mg/dL) 110 H 267 H (75-99) mg/dL Iron (65-175) ug/dL TIBC (228-460) ug/dL Iron Saturation (15.00-50.00) Microbiology - Last 24 Hours (Table) 11/12/18 13:10 Anaerobic Culture - Preliminary Pleural Fluid 11/11/18 11:38 Blood Culture - Preliminary Blood No Growth after 72 hours 11/12/18 13:10 Gram Stain - Preliminary Pleural Fluid Body Fluid Culture - Preliminary Assessment and Plan Plan: Assessment: #1 Right-sided pleural effusion, status post right-sided thoracentesis with 1200 ML's of fluid removed. Pathology pending. #2 Altered mental status of unclear etiology. #3 History of colon cancer status post resection. #4 Hyperlipidemia. 5 Hypertension. #6 Diabetes mellitus. #7 Glaucoma. #8 Diabetic retinopathy. #9 Chronic kidney disease. #10 Anemia of chronic disease. #11 History of cellulitis and osteomyelitis. #12 previous lower extremity venous stasis ulcers and amputation. Plan: We will await the results of the pleural fluid cytology, pleural fluid cultures are negative thus far, and it was a transudative fluid based on analysis. Anticipate further improvement in right pleural effusion with hemodialysis, clinically patient is asymptomatic, he is on room air, denies any worsening shortness of breath, no plans for repeat thoracentesis. I performed a history & physical examination of the patient and discussed their management with my nurse practitioner, Leonela Amanda. I reviewed the nurse practitioner's note and agree with the documented findings and plan of care. Lung sounds are positive for diminished breath sounds at the bases. The findings and the impression was discussed with the patient. I attest to the documentation by the nurse practitioner. Time with Patient: Less than 30
[2018-11-14 17:05] LABS: Glucose,Whole Blood 214 mg/dL (75-99)
[2018-11-14 19:23] LABS: Hepatitis B Surface AB- Quant 3.8 mIU/mL
[2018-11-14 20:24] LABS: Glucose,Whole Blood 190 mg/dL (75-99)
[2018-11-14] MEDS: PRAVASTATIN SODIUM 20 MG TAB PO SCH (21:11)
[2018-11-15 07:09] LABS: Glucose,Whole Blood 115 mg/dL (75-99)
[2018-11-15 07:14] LABS: Anisocytosis Slight; HCT 24.9 % (39.0-53.0); Hypochromasia Marked; MCH 27.8 pg (25.0-35.0); MCV 86.7 fL (80.0-100.0); Mean Platelet Volume 7.6; Platelet Count 253 k/uL (150-450); Poikilocytosis Slight; RBC 2.87 m/uL (4.30-5.90); RDW 17.4 % (11.5-15.5); WBC 8.5 k/uL (3.8-10.6)
[2018-11-15] MEDS: INSULIN ASPART (NovoLOG) 100 UNIT/ML VIAL SQ SCH ×2 (07:15→12:58)
[2018-11-15] MEDS: CARVEDILOL 6.25 MG TAB PO SCH (07:20)
[2018-11-15] MEDS: SUCRALFATE 1 GM TAB PO SCH (07:21)
[2018-11-15] MEDS: CALCIUM ACETATE 667 MG CAP PO SCH ×2 (07:21→13:01)
[2018-11-15 07:27] LABS: Calcium 8.4 mg/dL (8.4-10.2); Potassium 4.5 mmol/L (3.5-5.1)
[2018-11-15] MEDS: PANTOPRAZOLE 40 MG/10 ML VIAL IVP SCH (09:12)
[2018-11-15] MEDS: amLODIPine 10 MG TAB PO SCH (09:13)
[2018-11-15] MEDS: SODIUM BICARBONATE TAB 650 MG TAB PO SCH (09:13)
[2018-11-15] MEDS: SODIUM FERRIC GLUCONAT-SUCROSE 125 MG in SODIUM CHLORIDE 0.9% 100 ML IVPB SCH (09:13)
--- NOTE | 2018-11-15 10:13 | P.PN ---
Subjective Patient is seen in follow-up for acute kidney injury on chronic kidney disease. Patient has chronic kidney disease stage V with baseline creatinine near 4 outpatient. Started on hemodialysis on November 14. Denies active chest pain or shortness of breath. He has been voiding. Patient is somewhat confused. Vital signs are stable. General: The patient appeared well nourished and normally developed. HEENT: Head exam is unremarkable. Neck is without jugular venous distension. LUNGS: Lungs are clear to auscultation and percussion. Breath sounds decreased. HEART: Rate and Rhythm are regular. First and second heart sounds normal. No murmurs, rubs or gallops. ABDOMEN: Abdominal exam reveals normal bowel sounds. Non-tender and non- distended. No evidence of peritonitis. EXTREMITITES: No clubbing, cyanosis, or edema. Chronic changes noted. Objective - Vital Signs Vital signs: Vital Signs Temp 98.4 F 11/15/18 07:00 Pulse 81 11/15/18 07:00 Resp 17 11/15/18 07:00 BP 148/80 11/15/18 07:00 Pulse Ox 99 11/15/18 07:00 Intake & Output 11/14/18 11/15/18 11/15/18 18:59 06:59 18:59 Intake Total 222 640 Output Total 500 300 Balance -278 340 Intake: Intake, IV Titration 100 Amount Piperacillin-Tazobactam 3 100 .375 gm In Sodium Chloride 0.9% 100 ml @ 25 mls/hr IVPB Q12HR BRIAN Rx #:[id number] Oral 222 540 Output: Urine 300 Hemodialysis 500 Other: Voiding Method Diaper Urinal Incontinent Diaper Incontinent # Voids 1 # Bowel Movements 1 1 - Labs CBC & Chem 7: 11/15/18 06:47 11/15/18 06:47 Labs: Abnormal Lab Results - Last 24 Hours (Table) 11/14/18 11/14/18 11/14/18 Range/Units 11:17 17:03 20:11 RBC (4.30-5.90) m/uL Hgb (13.0-17.5) gm/dL Hct (39.0-53.0) % RDW (11.5-15.5) % BUN (9-20) mg/dL Creatinine (0.66-1.25) mg/dL Glucose (74-99) mg/dL POC Glucose (mg/dL) 267 H 214 H 190 H (75-99) mg/dL 11/15/18 11/15/18 11/15/18 Range/Units 06:47 06:47 06:57 RBC 2.87 L (4.30-5.90) m/uL Hgb 8.0 L (13.0-17.5) gm/dL Hct 24.9 L (39.0-53.0) % RDW 17.4 H (11.5-15.5) % BUN 51 H (9-20) mg/dL Creatinine 3.68 H (0.66-1.25) mg/dL Glucose 115 H (74-99) mg/dL POC Glucose (mg/dL) 115 H (75-99) mg/dL Microbiology - Last 24 Hours (Table) 11/12/18 13:10 Gram Stain - Preliminary Pleural Fluid Body Fluid Culture - Preliminary 11/12/18 13:10 Anaerobic Culture - Preliminary Pleural Fluid 11/11/18 11:38 Blood Culture - Preliminary Blood No Growth after 72 hours Assessment and Plan Plan: Assessment: 1. Acute kidney injury mostly prerenal improving with IV hydration. Creatinine was over 6 on admission and was down to 4.6 phosphorus of yesterday. Started on hemodialysis on November 14. 2. Chronic kidney disease stage V. Baseline creatinine in the range of 4-5 outpatient. 3. Right-sided pleural effusion status post thoracentesis with 1.5 L removed. 4. Anemia of chronic kidney disease. Patient had an episode of GI bleed recently. Iron deficiency noted. Also on Aranesp. 5. Hypertension with chronic kidney disease. Controlled. 6. Chronic kidney disease mineral bone disease maintained on PhosLo. 7. Metabolic acidosis secondary to chronic kidney disease and IV fluids. Better. 8. Altered mental status. There is concern for uremia. Plan: Hep-Lock IV fluids. Maintain oral sodium bicarbonate. IV iron 3 doses. Second dose today. Patient had permacath placed on November 13. Second treatment of hemodialysis today. partnership marketing manager following to set up outpatient hemodialysis.
[2018-11-15] MEDS: PIPERACILLIN-TAZOBACTAM 3.375 GM in SODIUM CHLORIDE 0.9% 100 ML IVPB SCH (11:01)
[2018-11-15 11:15] LABS: Glucose,Whole Blood 141 mg/dL (75-99)
--- NOTE | 2018-11-15 14:05 | P.DS ---
Providers Date of admission: 11/11/18 13:06 Expected date of discharge: 11/15/18 Attending physician: Francois Stevens MD Consults: 11/11/18 13:07 Consult Physician Routine Consulting Provider: Kristian Florez Consult Reason/Comments: acute cholecystitis, duodenitis Do you want consulting provider notified?: Yes 11/11/18 14:47 Consult Physician Urgent Consulting Provider: Travis Patrick Consult Reason/Comments: right pleural effusion Do you want consulting provider notified?: Yes Consult Physician Urgent Consulting Provider: Trista Oneil Consult Reason/Comments: renal failure Do you want consulting provider notified?: Yes 11/13/18 13:58 Consult Physician Routine Consulting Provider: Michael Grossman Consult Reason/Comments: dialysis cath placement to upper chest Do you want consulting provider notified?: Yes Primary care physician: [facility] Course: This is a pleasant 68 years old male with past medical history of diabetes mellitus, hypertension, hyperlipidemia, diabetic neuropathy, bilateral glaucoma, chronic kidney disease, history of colon cancer status post surgical resection. He presents with altered mental status. Patient is poor historian, when he asked he repeats his team and gives short unrelated answers. He is doesn't look tachypneic. He does not have specific complain of pain. On admissions patient is afebrile, blood pressure 155/100. Saturating 95% on 2 L. Labs showing WBC within normal limits at 10.6 K, hemoglobin 8.6, platelets 320. INR is 1.0. Creatinine 6.0. Potassium 5.2, sodium 143.. Liver enzymes not elevated, troponin less than 0.012, lipase 354, urinalysis showing RBCs 57. EKG showed sinus rhythm with frequent PVCs, QTC is 519. Abdomen/pelvis CT without contrast: Small right sided pleural effusion with atelectasis and/or infiltrate, possible acute cystitis and duodenitis. Nonobstructive bowel gas pattern. Chest x-ray: Moderate sized right pleural effusion with associated atelectasis and/or infiltrate, Similar to old chest x-ray. However there was possible of progressive disease. Patient slowly started to improve. He was continued on Zosyn. General surgery ruled out cholecystitis and suggested symptomatic management. His belly pain improved significantly and was having no pain afterwards. Patient was followed up by pulmonology who did a thoracentesis and the fluid came out to be transudate. Nephrology was following the patient patient was initially resistant dialysis but eventually he agreed on dialysis. As and when he got dialysis he was getting more and more alert. On 11/15/2018 Patient was sitting up in the chair and eating lunch. He was asking for beer jokingly he does not complain of any chest pain racing heart, no cough no shortness of breath, no abdominal pain, nausea and vomiting, no diarrhea constipation. He is walking with the help of the walker still weak in his legs. He complains of no pain in his legs that he was complaining before and no hip pain and low back pain. Physical exam On exam, alert and oriented x3. HEENT: Conjunctivae normal. eyes normal. NECK: No JVD. No thyroid enlargement. No LNs CARDIOVASCULAR: S1, S2 muffled. No murmur RESPIRATION: Breath sounds diminished in the bases. No rhonchi or crackles. No bronchial breathing. ABDOMEN: Soft, nontender . No guarding. no masses palpable. No ascites, No hep atosplenomegaly.Bowel sounds heard. LEGS: No edema. no swelling NERVOUS SYSTEM: Cranial N 2-12 grossly normal. Moves all 4 limbs. No focal deficits. No sensory deficit. No signs of cerebellar dysfucntion. Skin: no ulcer no rash Joints: Patient is having pain in the left knee on moment Lymphatic system. No LN neck axilla or groin. Patient will be discharged to rehab when cleared by pulmonology and nephrology He is to get dialysis as per nephrology recommendations Patient will be days discharged on Augmentin to complete a course. Patient is to follow with primary care doctor and with the nephrology as recommended Patient Condition at Discharge: Fair Plan - Discharge Summary New Discharge Prescriptions: Continue Pravastatin Sodium [Pravachol] 20 mg PO HS Sodium Bicarbonate Tab 650 mg PO BID Timolol 0.5% Ophth Soln [Timoptic 0.5% Ophth Soln] 1 drop BOTH EYES BID Ergocalciferol (Vitamin D2) [Drisdol] 50,000 unit PO Q7D Sucralfate [Carafate] 1 gm PO AC-BID #60 tab Pantoprazole [Protonix] 40 mg PO AC-BRKFST #30 tablet. Carvedilol [Coreg] 6.25 mg PO BID #60 tablet Torsemide [Demadex] 20 mg PO DAILY #60 tab glipiZIDE XL [Glucotrol XL] 5 mg PO DAILY #30 tab.er.24 amLODIPine [Norvasc] 10 mg PO DAILY #30 tab Calcium Acetate [PhosLo] 667 mg PO TID #90 cap Discharge Medication List Pravastatin Sodium [Pravachol] 20 mg PO HS 03/21/14 [History] Sodium Bicarbonate Tab 650 mg PO BID 07/15/14 [History] Ergocalciferol (Vitamin D2) [Drisdol] 50,000 unit PO Q7D 11/04/18 [History] Timolol 0.5% Ophth Soln [Timoptic 0.5% Ophth Soln] 1 drop BOTH EYES BID 11/04/18 [History] Calcium Acetate [PhosLo] 667 mg PO TID #90 cap 11/08/18 [Rx] Carvedilol [Coreg] 6.25 mg PO BID #60 tablet 11/08/18 [Rx] Pantoprazole [Protonix] 40 mg PO AC-BRKFST #30 tablet.dr 11/08/18 [Rx] Sucralfate [Carafate] 1 gm PO AC-BID #60 tab 11/08/18 [Rx] Torsemide [Demadex] 20 mg PO DAILY #60 tab 11/08/18 [Rx] amLODIPine [Norvasc] 10 mg PO DAILY #30 tab 11/08/18 [Rx] glipiZIDE XL [Glucotrol XL] 5 mg PO DAILY #30 tab.er.24 11/08/18 [Rx] Follow up Appointment(s)/Referral(s): Naveen Almaraz, [NON-STAFF] - As Needed Stephanie Patel MD [Primary Care Provider] - 1-2 days Activity/Diet/Wound Care/Special Instructions: If you start having any increased shortness of breath or cough, any chest pain racing heart any increased confusion, any lightheadedness or dizziness, please come to the ER by calling 911 Discharge Disposition: TRANSFER TO SNF/ECF
[2018-11-15 14:13] VITALS: RESP 16
[2018-11-15 14:38] VITALS: BP 107/65; PULSE 104; TEMP 98
[2018-11-15 16:56] LABS: Glucose,Whole Blood 234 mg/dL (75-99)
== END 2018-11-15 17:17 | DRG 682 ==
LOC: EC 10:27 → 4SSUR 13:06
PROVIDERS: ADMIT Internal Medicine; ATTEND Internal Medicine
PROC: 0W993ZZ Drainage of Right Pleural Cavity, Percutaneous Approach (ICD-10-PCS; 2018-11-12)
PROC: 05HY33Z Insertion of Infusion Device into Upper Vein, Percutaneous Approach (ICD-10-PCS; 2018-11-13 16:30)
PROC: 5A1D70Z Performance of Urinary Filtration, Intermittent, Less than 6 Hours Per Day (ICD-10-PCS; principal; 2018-11-14 15:00)
DX: N17.9 Acute kidney failure, unspecified (principal); G93.41 Metabolic encephalopathy; E87.2 Acidosis; I12.0 Hypertensive chronic kidney disease with stage 5 chronic kidney disease or end stage renal disease; J90 Pleural effusion, not elsewhere classified; J98.11 Atelectasis; N18.5 Chronic kidney disease, stage 5; E11.22 Type 2 diabetes mellitus with diabetic chronic kidney disease; E11.42 Type 2 diabetes mellitus with diabetic polyneuropathy; E11.319 Type 2 diabetes mellitus with unspecified diabetic retinopathy without macular edema; E11.39 Type 2 diabetes mellitus with other diabetic ophthalmic complication; K26.9 Duodenal ulcer, unspecified as acute or chronic, without hemorrhage or perforation; E83.89 Other disorders of mineral metabolism; D63.1 Anemia in chronic kidney disease; H42 Glaucoma in diseases classified elsewhere; E61.1 Iron deficiency; E78.5 Hyperlipidemia, unspecified; E86.0 Dehydration; I49.3 Ventricular premature depolarization; I44.7 Left bundle-branch block, unspecified; K29.80 Duodenitis without bleeding; I87.8 Other specified disorders of veins; R32 Unspecified urinary incontinence; Z79.84 Long term (current) use of oral hypoglycemic drugs; Z79.899 Other long term (current) drug therapy; Z85.038 Personal history of other malignant neoplasm of large intestine
CPT/HCPCS: 36415; 36571; 70450; 71045; 74176; 76604; 76705; 76937; 77001; 80048; 80053; 81001; 82140; 82550; 82728; 82803; 82945; 83540; 83550; 83605; 83615; 83690; 83735; 84157; 84484; 85025; 85027; 85610; 86704; 86706; 86850; 86900; 86901; 87040; 87070; 87075; 87086; 87102; 87116; 87205; 87206; 87252; 87340; 87496; 87498; 87502; 87529; 87634; 87798; 88108; 88305; 89050; 90935; 93005; 96365; 99285

== ENCOUNTER 2018-11-19 08:50 | Inpatient (IN) | payer MEDICARE ==
--- NOTE | 2018-11-19 09:37 | ED ---
General Adult HPI - General Chief complaint: Weakness Stated complaint: altered mental status Time Seen by Provider: 11/19/18 08:53 Source: EMS Mode of arrival: EMS Limitations: altered mental status - History of Present Illness Initial comments: Dictation was produced using Pay[employer] dictation software. please excuse any grammatical, word or spelling errors. Chief Complaint: 68-year-old male presents with request for dialysis. History of Present Illness: 68-year-old male. Patient is a poor historian. There is concern that there is slight mental delay. Patient was brought in by EMS. Patient states he has not had dialysis since last week. According to EMS patient has not had dialysis in 6 days. However patient reports that last a minute dialysis was . Patient uncooperative with exam. He denies any complaints however. His primary care doctor is Dr. Maalchi Ortiz. His kidney doctor is Dr. Oneil. According to EMS half-way staff rheumatologic did not schedule his dialysis. The ROS documented in this emergency department record has been reviewed and confirmed by me. Those systems with pertinent positive or negative responses have been documented in the HPI. All other systems are other negative and/or noncontributory. PHYSICAL EXAM: General Impression: Alert and oriented x3, not in acute distress HEENT: Normocephalic atraumatic, extra-ocular movements intact, pupils equal and reactive to light bilaterally, mucous membranes moist. Cardiovascular: Heart regular rate and rhythm, S1&S2 audible, no murmurs, rubs or gallops Chest: Lungs clear to auscultation bilaterally, no rhonchi, no wheeze, no rales, right chest. Continues catheter Abdomen: Bowel sounds present, abdomen soft, non-tender, non-distended, no organomegaly Musculoskeletal: Pulses present and equal in all extremities, no peripheral edema Motor: no focal deficits noted Neurological: CN II-XII grossly intact, no focal motor or sensory deficits noted Skin: Intact with no visualized rashes, pale Psych: Normal affect and mood ED course: 68-year-old male sent in from half-way facility for dialysis. EMS reports he hasn't had dialysis since Monday. Patient reports that he has had dialysis since . As upon arrival shows heart rate of 106, rest of vital signs within acceptable limits. Laboratory evaluation obtained. Initial CBC appeared to be possibly an error. Repeat CBC was obtained. 3.5. Leukocytosis of 11.1. There is also findings of acute blood loss anemia with elevated RDW. Recently patient had a hemoglobin of 8.0. He does have history of GI bleed. Metabolic panel obtained showing granular 5.1 BUN 1:15. There is Acidosis with a bicarb of 16 and gap of 13. Patient had a rectal exam showing black stool. Patient ordered for 2 units of transfusion. Discussed patient case with lawyers will arrange for dialysis. GI to be on consult. Discussed patient case with the patient services representative who agrees that patient is appropriate for ICU admission. EKG interpretation: Ventricular rate 16, sinus tachycardia, WV interval 172, care is 146, QTC 523. No WV prolongation, no QTC prolongation, no ST or T-wave changes noted. EKG compared to 11/11/2018 showing no changes. Overall, this EKG is unremarkable - Related Data Home Medications Medication Instructions Recorded Confirmed Pravastatin Sodium [Pravachol] 20 mg PO HS 03/21/14 11/19/18 Sodium Bicarbonate Tab 650 mg PO BID 07/15/14 11/19/18 Ergocalciferol (Vitamin D2) 50,000 unit PO SA 11/04/18 11/19/18 [Drisdol] Timolol 0.5% Ophth Soln [Timoptic 1 drop BOTH EYES BID 11/04/18 11/19/18 0.5% Ophth Soln] Calcium Acetate [PhosLo] 667 mg PO AC-TID 11/19/18 11/19/18 Pantoprazole [Protonix] 40 mg PO DAILY@0700 11/19/18 11/19/18 Previous Rx's Medication Instructions Recorded Carvedilol [Coreg] 6.25 mg PO BID #60 tablet 11/08/18 Sucralfate [Carafate] 1 gm PO AC-BID #60 tab 11/08/18 Torsemide [Demadex] 20 mg PO DAILY #60 tab 11/08/18 amLODIPine [Norvasc] 10 mg PO DAILY #30 tab 11/08/18 glipiZIDE XL [Glucotrol XL] 5 mg PO DAILY #30 tab.er.24 11/08/18 Allergies Allergy/AdvReac Type Severity Reaction Status Date / Time No Known Allergies Allergy Verified 11/19/18 08:57 Review of Systems ROS Statement: Those systems with pertinent positive or pertinent negative responses have been documented in the HPI. ROS Other: All systems not noted in ROS Statement are negative. Past Medical History Past Medical History: Cancer, Diabetes Mellitus, Eye Disorder, Hyperlipidemia, Hypertension, Renal Disease, Skin Disorder Additional Past Medical History / Comment(s): NIDDM type II, neuropathy bilateral feet, pt states he has current sores on bilateral lower legs/feet, past diabetic ulcers/venous stasis ulcers legs/feet and L foot cellulitis with 5th toe osteomyelitis in 2014, diabetic retinopathy bilaterally with surgery, bilateral glaucoma, chronic kidney disease, chronic anemia, past colon cancer with surgery-pt cannot recall if he had chemo/radiation, bronchitis, past R elbow fracture, allergic rhinitis. History of Any Multi-Drug Resistant Organisms: None Reported Past Surgical History: Bowel Resection Additional Past Surgical History / Comment(s): Colon resection, laser treatment for diabetic retinopathy, sinus surgery, R anterior lower leg wound debridement. Past Anesthesia/Blood Transfusion Reactions: No Reported Reaction Past Psychological History: No Psychological Hx Reported Smoking Status: Never smoker Past Alcohol Use History: None Reported Past Drug Use History: None Reported - Past Family History Father Family Medical History: No Reported History Additional Family Medical History / Comment(s): Father was healthy Mother Family Medical History: No Reported History Additional Family Medical History / Comment(s): Mother was healthy General Exam Limitations: altered mental status Course Vital Signs 11/19/18 11/19/18 11/19/18 08:53 08:55 09:00 Temperature 98.6 F Pulse Rate 106 H Respiratory 20 20 Rate Blood Pressure 122/77 122/77 O2 Sat by Pulse 98 99 98 Oximetry 11/19/18 11/19/18 11/19/18 09:10 09:20 09:30 Temperature Pulse Rate 104 H 102 H 104 H Respiratory 23 18 20 Rate Blood Pressure 123/56 123/56 123/56 O2 Sat by Pulse 95 Oximetry 11/19/18 11/19/18 11/19/18 09:40 09:50 10:00 Temperature Pulse Rate 101 H 103 H 101 H Respiratory 19 20 15 Rate Blood Pressure 121/67 121/67 121/67 O2 Sat by Pulse Oximetry 11/19/18 11/19/18 11/19/18 10:10 10:20 10:30 Temperature Pulse Rate 100 102 H 101 H Respiratory 20 22 24 Rate Blood Pressure 119/62 119/62 119/62 O2 Sat by Pulse 97 95 Oximetry 11/19/18 10:40 Temperature Pulse Rate 99 Respiratory 22 Rate Blood Pressure 117/61 O2 Sat by Pulse 96 Oximetry Medical Decision Making - Lab Data Result diagrams: 11/19/18 10:17 11/19/18 09:10 Lab Results 11/19/18 11/19/18 11/19/18 Range/Units 09:10 09:10 10:17 WBC 12.7 H 11.1 H (3.8-10.6) k/uL RBC 1.39 L 1.29 L (4.30-5.90) m/uL Hgb 3.8 L* D 3.5 L* (13.0-17.5) gm/dL Hct 12.6 L* 12.2 L* (39.0-53.0) % MCV 90.8 94.2 (80.0-100.0) fL MCH 27.4 26.9 (25.0-35.0) pg MCHC 30.2 L 28.5 L (31.0-37.0) g/dL RDW 22.1 H 22.4 H (11.5-15.5) % Plt Count 193 173 (150-450) k/uL Neutrophils % 79 79 % Lymphocytes % 10 10 % Monocytes % 6 7 % Eosinophils % 2 2 % Basophils % 0 0 % Neutrophils # 10.0 H 8.8 H (1.3-7.7) k/uL Lymphocytes # 1.3 1.1 (1.0-4.8) k/uL Monocytes # 0.8 0.8 (0-1.0) k/uL Eosinophils # 0.3 0.2 (0-0.7) k/uL Basophils # 0.0 0.0 (0-0.2) k/uL Manual Slide Review Performed Hypersegmented Neuts Present Polychromasia Present Hypochromasia Moderate Marked Poikilocytosis Slight Slight Anisocytosis Moderate Moderate Macrocytosis Slight Slight Sodium 134 L (137-145) mmol/L Potassium 4.2 (3.5-5.1) mmol/L Chloride 105 (98-107) mmol/L Carbon Dioxide 16 L (22-30) mmol/L Anion Gap 13 mmol/L BUN 115 H* (9-20) mg/dL Creatinine 5.14 H (0.66-1.25) mg/dL Est GFR (CKD-EPI)AfAm 12 (>60 ml/min/1.73 sqM) Est GFR (CKD-EPI)NonAf 11 (>60 ml/min/1.73 sqM) Glucose 250 H (74-99) mg/dL Calcium 8.2 L (8.4-10.2) mg/dL Magnesium 2.2 (1.6-2.3) mg/dL Disposition Clinical Impression: Missed dialysis, GI bleed Disposition: ADMITTED IP TO THIS HOSP Condition: Critical Referrals: Stephanie Patel MD [Primary Care Provider] - 1-2 days Decision Time: 11:26
[2018-11-19 09:42] LABS: Anisocytosis Moderate; Basophils % (A) 0 %; Eosinophils # (A) 0.3 k/uL (0-0.7); Eosinophils % (A) 2 %; Hypochromasia Moderate; Lymphocytes # (A) 1.3 k/uL (1.0-4.8); Lymphocytes % (A) 10 %; MCH 27.4 pg (25.0-35.0); MCHC 30.2 g/dL (31.0-37.0); MCV 90.8 fL (80.0-100.0); Macrocytosis Slight; Monocytes # (A) 0.8 k/uL (0-1.0); Monocytes % (A) 6 %; Neutrophils % (A) 79 %; Platelet Count 193 k/uL (150-450); Poikilocytosis Slight; RBC 1.39 m/uL (4.30-5.90); RDW 22.1 % (11.5-15.5); WBC 12.7 k/uL (3.8-10.6)
[2018-11-19 09:48] LABS: Calcium 8.2 mg/dL (8.4-10.2); Magnesium 2.2 mg/dL (1.6-2.3); Potassium 4.2 mmol/L (3.5-5.1)
[2018-11-19 09:50] LABS: HCT 12.6 % (39.0-53.0); HGB 3.8 gm/dL (13.0-17.5)
[2018-11-19 10:07] LABS: Hypersegmented Neutrophils Present; Polychromasia Present
[2018-11-19 10:49] LABS: Anisocytosis Moderate; Basophils % (A) 0 %; Eosinophils # (A) 0.2 k/uL (0-0.7); Eosinophils % (A) 2 %; Hypochromasia Marked; Lymphocytes # (A) 1.1 k/uL (1.0-4.8); Lymphocytes % (A) 10 %; MCH 26.9 pg (25.0-35.0); MCHC 28.5 g/dL (31.0-37.0); MCV 94.2 fL (80.0-100.0); Macrocytosis Slight; Mean Platelet Volume 7.9; Monocytes # (A) 0.8 k/uL (0-1.0); Monocytes % (A) 7 %; Neutrophils # (A) 8.8 k/uL (1.3-7.7); Neutrophils % (A) 79 %; Platelet Count 173 k/uL (150-450); Poikilocytosis Slight; RBC 1.29 m/uL (4.30-5.90); RDW 22.4 % (11.5-15.5); WBC 11.1 k/uL (3.8-10.6)
[2018-11-19 11:03] LABS: HCT 12.2 % (39.0-53.0); HGB 3.5 gm/dL (13.0-17.5)
[2018-11-19] MEDS ORDERED: PANTOPRAZOLE 40 MG/10 ML VIAL IVP ONE (11:08)
[2018-11-19] MEDS ORDERED: NALOXONE 0.4 MG/ML 1 ML VIAL IV PRN (11:22)
[2018-11-19] MEDS ORDERED: ACETAMINOPHEN TAB 325 MG TAB PO PRN (11:22)
[2018-11-19 12:45] VITALS: BMI 32.8
[2018-11-19 14:39] LABS: Amorphous Sediment,Urine Rare /hpf; Appearance,Urine Turbid (Clear); Bacteria,Urine Rare /hpf; Bilirubin,Urine Negative (Negative); Blood,Urine Small (Negative); Color,Urine Light Yellow; Glucose,Urine (UA) Trace (Negative); Ketones,Urine Negative (Negative); Leukocyte Esterase,Urine Small (Negative); Mucus,Urine Few /hpf; Nitrite,Urine Negative (Negative); Protein,Urine 1+ (Negative); Specific Gravity,Urine 1.012 (1.001-1.035); Squamous Epithelial Cell,Urine 6 /hpf (0-4); Urobilinogen,Urine <2.0 mg/dL (<2.0); WBC,Urine 7 /hpf (0-5)
--- NOTE | 2018-11-19 15:13 | P.HPIM ---
History of Present Illness This is a pleasant 68 years old male with past medical history of diabetes mellitus, hypertension, hyperlipidemia, diabetic neuropathy, bilateral glaucoma, chronic kidney disease, history of colon cancer status post surgical resection. He was recently discharged from the hospital for altered mental status of unclear etiology. His mental status is reported improved after patient was started on hemodialysis last time. He underwent removal of 1200 L of fluid from his right sided pleural effusion via thoracocentesis. And he was started on hemodialysis recently on 11/14/2018. Patient presents with missed hemodialysis and possible worsening mental status. Patient poor historian. On presentation he was mildly tachycardic at 104, blood pressure 110/53, saturating 94% on room air. His afebrile.. He is afebrile. Labs showing severe anemia with hemoglobin 3.5, WBC 11.1 K, platelet count within normal. Creatinine 5.14, sodium 134. Occult blood in the stool is positive. EKG shows sinus tachycardia with PACs, heart rate is 106. QTC 423. The emergency room patient was started on Protonix. Patient is getting curren tly 2 units of blood transfusion. Review of Systems CONSTITUTIONAL: No fever, no malaise, no fatigue. HEENT: No recent visual problems or hearing problems. Denied any sore throat. CARDIOVASCULAR: No orthopnea, PND, no palpitations, no syncope. PULMONARY: No shortness of breath, no cough, no hemoptysis. GASTROINTESTINAL: No diarrhea, no nausea, no vomiting, no abdominal pain. Normoactive bowel sounds. NEUROLOGICAL: No headaches, no weakness, no numbness. HEMATOLOGICAL: Denies any bleeding or petechiae. GENITOURINARY: Denies any burning micturition, frequency, or urgency. MUSCULOSKELETAL/RHEUMATOLOGICAL: Denies any joint pain, swelling, or any muscle pain. ENDOCRINE: Denies any polyuria or polydipsia. Past Medical History Past Medical History: Cancer, Diabetes Mellitus, Eye Disorder, Hyperlipidemia, Hypertension, Renal Disease, Skin Disorder Additional Past Medical History / Comment(s): NIDDM type II, neuropathy bilateral feet, pt states he has current sores on bilateral lower legs/feet, past diabetic ulcers/venous stasis ulcers legs/feet and L foot cellulitis with 5th toe osteomyelitis in 2013, diabetic retinopathy bilaterally with surgery, bilateral glaucoma, chronic kidney disease, chronic anemia, past colon cancer with surgery-pt cannot recall if he had chemo/radiation, bronchitis, past R elbow fracture, allergic rhinitis. History of Any Multi-Drug Resistant Organisms: None Reported Past Surgical History: Bowel Resection Additional Past Surgical History / Comment(s): Colon resection, laser treatment for diabetic retinopathy, sinus surgery, R anterior lower leg wound debridement. Past Anesthesia/Blood Transfusion Reactions: No Reported Reaction Past Psychological History: No Psychological Hx Reported Smoking Status: Never smoker Past Alcohol Use History: None Reported Past Drug Use History: None Reported - Past Family History Father Family Medical History: No Reported History Additional Family Medical History / Comment(s): Father was healthy Mother Family Medical History: No Reported History Additional Family Medical History / Comment(s): Mother was healthy Medications and Allergies Home Medications Medication Instructions Recorded Confirmed Type Pravastatin Sodium [Pravachol] 20 mg PO HS 03/21/14 11/19/18 History Sodium Bicarbonate Tab 650 mg PO BID 07/15/14 11/19/18 History Ergocalciferol (Vitamin D2) 50,000 unit PO SA 11/04/18 11/19/18 History [Drisdol] Timolol 0.5% Ophth Soln [Timoptic 1 drop BOTH EYES BID 11/04/18 11/19/18 History 0.5% Ophth Soln] Carvedilol [Coreg] 6.25 mg PO BID #60 tablet 11/08/18 11/19/18 Rx Sucralfate [Carafate] 1 gm PO AC-BID #60 tab 11/08/18 11/19/18 Rx Torsemide [Demadex] 20 mg PO DAILY #60 tab 11/08/18 11/19/18 Rx amLODIPine [Norvasc] 10 mg PO DAILY #30 tab 11/08/18 11/19/18 Rx glipiZIDE XL [Glucotrol XL] 5 mg PO DAILY #30 tab.er.24 11/08/18 11/19/18 Rx Calcium Acetate [PhosLo] 667 mg PO AC-TID 11/19/18 11/19/18 History Pantoprazole [Protonix] 40 mg PO DAILY@0700 11/19/18 11/19/18 History Allergies Allergy/AdvReac Type Severity Reaction Status Date / Time No Known Allergies Allergy Verified 11/19/18 08:57 Physical Exam Vitals: Vital Signs Temp Pulse Resp BP Pulse Ox 11/19/18 12:09 100 22 94 L 11/19/18 12:05 98.4 F 102 H 20 110/53 11/19/18 11:55 98.7 F 104 H 22 125/54 96 11/19/18 10:40 99 22 117/61 96 11/19/18 10:30 101 H 24 119/62 95 11/19/18 10:20 102 H 22 119/62 97 11/19/18 10:10 100 20 119/62 11/19/18 10:00 101 H 15 121/67 11/19/18 09:50 103 H 20 121/67 11/19/18 09:40 101 H 19 121/67 11/19/18 09:30 104 H 20 123/56 11/19/18 09:20 102 H 18 123/56 11/19/18 09:10 104 H 23 123/56 95 11/19/18 09:00 20 122/77 98 11/19/18 08:55 98.6 F 106 H 20 122/77 99 11/19/18 08:53 98 Intake and Output 11/18/18 11/19/18 11/19/18 22:59 06:59 14:59 Intake Total 0 Balance 0 Intake: Blood Product 0 Rc As-1 Unit 0 [id number] Other: Weight 90.718 kg GENERAL: The patient is alert and oriented x1-2, not in any acute distress. Well developed, well nourished. HEENT: Pupils are round and equally reacting to light. EOMI. No scleral icterus. No conjunctival pallor. Normocephalic, atraumatic. No pharyngeal erythema. No thyromegaly. CARDIOVASCULAR: S1 and S2 present. No murmurs, rubs, or gallops. PULMONARY: Chest is clear to auscultation, no wheezing or crackles. ABDOMEN: Soft, nontender, nondistended, normoactive bowel sounds. No palpable organomegaly. MUSCULOSKELETAL: No joint swelling or deformity. EXTREMITIES: No cyanosis, clubbing, or pedal edema. NEUROLOGICAL: Gross neurological examination did not reveal any focal deficits. SKIN: No rashes. Results CBC & Chem 7: 11/19/18 10:17 11/19/18 09:10 Labs: Abnormal Lab Results - Last 24 Hours (Table) 11/19/18 11/19/18 11/19/18 Range/Units 09:10 09:10 09:10 WBC 12.7 H (3.8-10.6) k/uL RBC 1.39 L (4.30-5.90) m/uL Hgb 3.8 L* D (13.0-17.5) gm/dL Hct 12.6 L* (39.0-53.0) % MCHC 30.2 L (31.0-37.0) g/dL RDW 22.1 H (11.5-15.5) % Neutrophils # 10.0 H (1.3-7.7) k/uL Sodium 134 L (137-145) mmol/L Carbon Dioxide 16 L (22-30) mmol/L BUN 115 H* (9-20) mg/dL Creatinine 5.14 H (0.66-1.25) mg/dL Glucose 250 H (74-99) mg/dL Calcium 8.2 L (8.4-10.2) mg/dL Crossmatch See Detail 11/19/18 Range/Units 10:17 WBC 11.1 H (3.8-10.6) k/uL RBC 1.29 L (4.30-5.90) m/uL Hgb 3.5 L* (13.0-17.5) gm/dL Hct 12.2 L* (39.0-53.0) % MCHC 28.5 L (31.0-37.0) g/dL RDW 22.4 H (11.5-15.5) % Neutrophils # 8.8 H (1.3-7.7) k/uL Sodium (137-145) mmol/L Carbon Dioxide (22-30) mmol/L BUN (9-20) mg/dL Creatinine (0.66-1.25) mg/dL Glucose (74-99) mg/dL Calcium (8.4-10.2) mg/dL Crossmatch Assessment and Plan Assessment: Acute GI bleed Severe anemia, mostly acute blood loss anemia Altered mental status, mostly metabolic encephalopathy End-stage kidney disease on hemodialysis Diabetes mellitus Essential hypertension Hyperlipidemia Diabetic neuropathy History of bilateral rectal, Chronic kidney disease History of colon cancer status post surgical resection Plan: This is a pleasant 68 years male who presents with severe anemia with occult blood positive stools. Continue with Protonix, blood transfusion to keep hemoglobin 7 and more, GI consult Labs and medication were reviewed.. Continue same treatment. Continue with symptomatic treatment. Resume home medication. Monitor lytes and vitals. DVT and GI prophylaxis. Further recommendations of the clinical course of the patient DVT prophylaxis: No decannulation and review of GI bleed GI Prophylaxis: Protonix PT/OT: Pending Prognosis is guarded
[2018-11-19] MEDS ORDERED: HEPARIN SODIUM,PORCINE 5,000 UNIT/ML 1 ML VIAL ONE (18:00)
[2018-11-19 19:05] LABS: Anisocytosis Slight; Hypochromasia Slight; MCH 28.2 pg (25.0-35.0); MCHC 31.3 g/dL (31.0-37.0); MCV 90.2 fL (80.0-100.0); Mean Platelet Volume 7.9; Platelet Count 180 k/uL (150-450); Poikilocytosis Slight; RBC 1.97 m/uL (4.30-5.90); RDW 19.4 % (11.5-15.5)
[2018-11-19 19:09] LABS: HGB 5.6 gm/dL (13.0-17.5)
[2018-11-19 19:10] LABS: HCT 17.8 % (39.0-53.0)
--- NOTE | 2018-11-19 20:51 | XR ---
EXAMINATION TYPE: XR chest 1V DATE OF EXAM: 11/19/2018 CLINICAL HISTORY: Fever and leukocytosis . TECHNIQUE: Single AP portable supine view of the chest is obtained. COMPARISON: Chest x-ray from 6 days earlier FINDINGS: Stable large bore right internal jugular dialysis catheter. Persistent cardiomegaly with c entral vascular congestion and bibasilar opacities. No pneumothorax is seen bilaterally. Low lung vol umes are redemonstrated. Atherosclerotic aorta again seen. Osseous structures are intact. IMPRESSION: Low lung volumes and cardiomegaly with central vascular congestion and small bilateral pl eural effusions favoring CHF exacerbation or fluid overload state. Underlying bibasilar acute infiltr ate and/or atelectasis is noted. Left basilar findings are new from prior study.
[2018-11-19] MEDS: PANTOPRAZOLE 40 MG/10 ML VIAL IV SCH (21:15)
[2018-11-19] MEDS: TIMOLOL 0.5% OPHTH DROPS 5 ML BTL BOTH EYES SCH (21:19)
[2018-11-19] MEDS: PRAVASTATIN SODIUM 20 MG TAB PO SCH (21:19)
[2018-11-19] MEDS ORDERED: DESMOPRESSIN ACETATE 27 MCG in SODIUM CHLORIDE 0.9% 50 ML IVPB ONE (22:15)
[2018-11-19 22:59] LABS: Anisocytosis Slight; MCH 29.1 pg (25.0-35.0); MCHC 32.6 g/dL (31.0-37.0); MCV 89.2 fL (80.0-100.0); Mean Platelet Volume 7.7; Platelet Count 150 k/uL (150-450); Poikilocytosis Slight; RBC 2.23 m/uL (4.30-5.90); RDW 18.2 % (11.5-15.5); WBC 12.1 k/uL (3.8-10.6)
[2018-11-19 23:07] LABS: HCT 19.9 % (39.0-53.0); HGB 6.5 gm/dL (13.0-17.5)
[2018-11-19 23:26] LABS: Appearance,Urine Turbid (Clear); Bacteria,Urine Few /hpf; Bilirubin,Urine Negative (Negative); Blood,Urine Large (Negative); Color,Urine Yellow; Glucose,Urine (UA) Negative (Negative); Hyaline Casts,Urine 8 /lpf (0-2); Ketones,Urine Negative (Negative); Leukocyte Esterase,Urine Large (Negative); Nitrite,Urine Negative (Negative); Protein,Urine 2+ (Negative); RBC,Urine 123 /hpf (0-5); Specific Gravity,Urine 1.012 (1.001-1.035); Squamous Epithelial Cell,Urine 1 /hpf (0-4); Urobilinogen,Urine <2.0 mg/dL (<2.0); WBC,Urine >182 /hpf (0-5)
[2018-11-20 05:35] LABS: Anisocytosis Slight; Basophils % (A) 0 %; Eosinophils # (A) 0.1 k/uL (0-0.7); Eosinophils % (A) 2 %; Hypochromasia Slight; Lymphocytes # (A) 1.1 k/uL (1.0-4.8); Lymphocytes % (A) 13 %; MCH 30.2 pg (25.0-35.0); MCHC 32.8 g/dL (31.0-37.0); MCV 92.2 fL (80.0-100.0); Mean Platelet Volume 9.7; Monocytes # (A) 0.6 k/uL (0-1.0); Monocytes % (A) 7 %; Neutrophils # (A) 6.8 k/uL (1.3-7.7); Neutrophils % (A) 76 %; Platelet Count 154 k/uL (150-450); Poikilocytosis Slight; RBC 2.03 m/uL (4.30-5.90); RDW 18.6 % (11.5-15.5); WBC 8.8 k/uL (3.8-10.6)
[2018-11-20 05:40] LABS: HGB 6.1 gm/dL (13.0-17.5)
[2018-11-20 05:41] LABS: HCT 18.7 % (39.0-53.0)
[2018-11-20 05:43] LABS: Calcium 7.6 mg/dL (8.4-10.2)
[2018-11-20 05:49] LABS: Potassium 3.4 mmol/L (3.5-5.1)
[2018-11-20] MEDS ORDERED: POTASSIUM CHLORIDE ER 20 MEQ TAB.ER PO STA (07:09)
[2018-11-20] MEDS: SODIUM CHLORIDE 0.9% 1,000 ML IV SCH ×2 (08:29→13:01)
--- NOTE | 2018-11-20 08:56 | P.CNPUL ---
History of Present Illness Consult date: 11/19/18 Chief complaint: GI bleed, anemia, renal failure History of present illness: A 68-year-old female patient presented to the emergency department requesting for dialysis. The patient is a poor historian. There is also concern for some mental delay. The patient was brought in via EMS. The patient has not had dialysis for almost a week. According to the EMS the patient has not had dialysis for the past 6 days. The last reported dialysis was of last week according to the patient. Her primary care physician is Dr. Malachi Crisostomo. The patient also sees Dr. Oneil from nephrology. The patient was also having melanotic stools. Her blood work in the ED showed a hemoglobin of 3.8 with a MCV of 90 and a white cell count 12.7. Her creatinine was at 5.1 with a BUN of 115. Serum bicarb was 16 with anion gap of 13. Blood sugar was at 250. Calcium was at 8.2. Stool occult was positive for blood. EKG showing sinus tachycardia with premature atrial complexes and left axis deviation and the nonspecific intra ventricular block. Based on this rectal exam was also done that showed black stool. The patient was ordered for 2 units of packed RBC transfusion. Nephrology was involved and diuresis will be arranged for this patient. Meanwhile, the patient will be transferred to the intensive care unit for further care. The patient had a similar admission back in 11/07/2018 which she came into the hospital because of severe symptomatically anemia and hemoglobin of 4.9 requiring 3 units of packed red was a transfusion. She had a endoscopy and colonoscopy that showed large duodenal bulbar ulcer measuring at least 3-4 cm in size without any evidence of acute bleeding. The patient was also found to have mild gastritis. The patient was given Protonix 40 mg twice a day and she was advised to avoid nonsteroidal anti-inflammatory medication. Review of Systems Constitutional: Denies fever, chills, sweats, weight gain, or loss. The patient is quite lethargic and weak as the patient has Dialysis for several days prior to his current admission. HEENT: Negative for migraines, blurred vision or loss, earaches, drainage, tinnitus, oral mucosal lesions, dysphagia, or odynophagia. Cardiac: Negative for chest pain, arrhythmias, or palpitation. Respiratory: Negative for shortness of breath, hemoptysis, cough, or sputum production. Gastrointestinal: See HPI for pertinent findings. Genitourinary: Negative for hematuria, urgency, frequency, polyuria, dysuria, or penile discharge. Musculoskeletal: Negative for muscle aches, swelling, arthritis, and arthralgias. Neurologic: Negative for stroke or TIA. Endocrine: Negative for thyroid problems. Skin: Negative for rash or itching. Psychiatric: Negative history for depression and anxiety Past Medical History Past Medical History: Cancer, Diabetes Mellitus, Eye Disorder, Hyperlipidemia, Hypertension, Renal Disease, Skin Disorder Additional Past Medical History / Comment(s): Previous history of GI bleed secondary to duodenal ulcer, NIDDM type II, neuropathy bilateral feet, pt states he has current sores on bilateral lower legs/feet, past diabetic ulcers/venous stasis ulcers legs/feet and L foot cellulitis with 5th toe osteomyelitis in 2013, diabetic retinopathy bilaterally with surgery, bilateral glaucoma, chronic kidney disease, chronic anemia, past colon cancer with surgery-pt cannot recall if he had chemo/radiation, bronchitis, past R elbow fracture, allergic rhinitis. History of Any Multi-Drug Resistant Organisms: None Reported Past Surgical History: Bowel Resection Additional Past Surgical History / Comment(s): Colon resection, laser treatment for diabetic retinopathy, sinus surgery, R anterior lower leg wound debridement. Past Anesthesia/Blood Transfusion Reactions: No Reported Reaction Past Psychological History: No Psychological Hx Reported Smoking Status: Never smoker Past Alcohol Use History: None Reported Past Drug Use History: None Reported - Past Family History Father Family Medical History: No Reported History Additional Family Medical History / Comment(s): Father was healthy Mother Family Medical History: No Reported History Additional Family Medical History / Comment(s): Mother was healthy Medications and Allergies Home Medications Medication Instructions Recorded Confirmed Type Pravastatin Sodium [Pravachol] 20 mg PO HS 03/21/14 11/19/18 History Sodium Bicarbonate Tab 650 mg PO BID 07/15/14 11/19/18 History Ergocalciferol (Vitamin D2) 50,000 unit PO SA 11/04/18 11/19/18 History [Drisdol] Timolol 0.5% Ophth Soln [Timoptic 1 drop BOTH EYES BID 11/04/18 11/19/18 History 0.5% Ophth Soln] Carvedilol [Coreg] 6.25 mg PO BID #60 tablet 11/08/18 11/19/18 Rx Sucralfate [Carafate] 1 gm PO AC-BID #60 tab 11/08/18 11/19/18 Rx Torsemide [Demadex] 20 mg PO DAILY #60 tab 11/08/18 11/19/18 Rx amLODIPine [Norvasc] 10 mg PO DAILY #30 tab 11/08/18 11/19/18 Rx glipiZIDE XL [Glucotrol XL] 5 mg PO DAILY #30 tab.er.24 11/08/18 11/19/18 Rx Calcium Acetate [PhosLo] 667 mg PO AC-TID 11/19/18 11/19/18 History Pantoprazole [Protonix] 40 mg PO DAILY@0700 11/19/18 11/19/18 History Allergies Allergy/AdvReac Type Severity Reaction Status Date / Time No Known Allergies Allergy Verified 11/19/18 08:57 Physical Exam Vitals: Vital Signs Temp Pulse Pulse Resp BP BP Pulse Ox 11/19/18 13:12 103 H 23 143/62 94 L 11/19/18 12:36 98.0 F 22 128/66 91 L 11/19/18 12:35 98 F 105 H 22 128/66 92 L 11/19/18 12:30 98 F 102 H 22 128/66 92 L 11/19/18 12:09 100 22 94 L 11/19/18 12:05 98.4 F 102 H 20 110/53 11/19/18 11:55 98.7 F 104 H 22 125/54 96 11/19/18 10:40 99 22 117/61 96 11/19/18 10:30 101 H 24 119/62 95 11/19/18 10:20 102 H 22 119/62 97 11/19/18 10:10 100 20 119/62 11/19/18 10:00 101 H 15 121/67 11/19/18 09:50 103 H 20 121/67 11/19/18 09:40 101 H 19 121/67 11/19/18 09:30 104 H 20 123/56 11/19/18 09:20 102 H 18 123/56 11/19/18 09:10 104 H 23 123/56 95 11/19/18 09:00 20 122/77 98 11/19/18 08:55 98.6 F 106 H 20 122/77 99 11/19/18 08:53 98 Intake and Output 11/18/18 11/19/18 11/19/18 22:59 06:59 14:59 Intake Total 0 Output Total 825 Balance -825 Intake: Blood Product 0 Rc As-1 Unit 0 [id number] Output: Urine 825 Other: Weight 90.718 kg General appearance: The patient is alert, oriented, in no acute distress. Head exam was generally normal. There was no scleral icterus or corneal arcus. Mucous membranes were moist.. Neck: Supple without lymphadenopathy. Trachea midline. Heart: S1 S2. Regular rate and rhythm. Lungs: No crackles or wheezes are heard. Abdomen: Soft, nontender, nondistended with bowel sounds. No peritoneal signs. No palpable organomegaly or masses. Extremities: Normal skin color and turgor. No cyanosis, rash, ulceration, clubbing, or edema. Radial and pedal pulses are 2/4 bilaterally. Neurological: No focal deficits. Strength and sensation are grossly intact. Examination of the skin revealed no evidence of significant rashes, suspicious appearing nevi or other concerning lesions. Results - Laboratory Findings CBC and BMP: 11/19/18 10:17 11/19/18 09:10 Abnormal lab findings: Abnormal Labs 11/19/18 11/19/18 11/19/18 09:10 09:10 09:10 WBC 12.7 H RBC 1.39 L Hgb 3.8 L* D Hct 12.6 L* MCHC 30.2 L RDW 22.1 H Neutrophils # 10.0 H Sodium 134 L Carbon Dioxide 16 L BUN 115 H* Creatinine 5.14 H Glucose 250 H Calcium 8.2 L Crossmatch See Detail 11/19/18 10:17 WBC 11.1 H RBC 1.29 L Hgb 3.5 L* Hct 12.2 L* MCHC 28.5 L RDW 22.4 H Neutrophils # 8.8 H Sodium Carbon Dioxide BUN Creatinine Glucose Calcium Crossmatch Assessment and Plan Plan: 1 upper GI bleeding with profound anemia and bloody stool and hemoglobin of 3.8. The patient was scoped on 11/07/2018 and the findings were consistent with a large duodenal ulcer that was not bleeding at that time. The patient also has some mild antral gastritis. Hemoglobin has dropped again and the patient is being chest tubes with packed RBC 2 chronic renal failure, dialysis dependent patient has not had dialysis for several days 3 History of colon cancer status post resection. 4 Hyperlipidemia. 5 Hypertension. 6 Diabetes mellitus. 7 Glaucoma. 8 Diabetic retinopathy. 9 Chronic kidney disease. 10 Anemia of chronic disease. 11 History of cellulitis and osteomyelitis. 12 previous lower extremity venous stasis ulcers and amputation. Plan Admit the patient to the intensive care unit. Proceed with packed RBC transfusion. GI consultation. Nephrology consultation for immediate hemodialysis. We'll continue to follow
--- NOTE | 2018-11-20 09:01 | P.PN ---
Subjective Progress Note Date: 11/20/18 Principal diagnosis: GI bleed, anemia, renal failure A 68-year-old female patient presented to the emergency department requesting for dialysis. The patient is a poor historian. There is also concern for some mental delay. The patient was brought in via EMS. The patient has not had dialysis for almost a week. According to the EMS the patient has not had dialysis for the past 6 days. The last reported dialysis was of last week according to the patient. Her primary care physician is Dr. Malachi Crisostomo. The patient also sees Dr. Oneil from nephrology. The patient was also having melanotic stools. Her blood work in the ED showed a hemoglobin of 3.8 with a MCV of 90 and a white cell count 12.7. Her creatinine was at 5.1 with a BUN of 115. Serum bicarb was 16 with anion gap of 13. Blood sugar was at 250. Calcium was at 8.2. Stool occult was positive for blood. EKG showing sinus tachycardia with premature atrial complexes and left axis deviation and the nonspecific intra ventricular block. Based on this rectal exam was also done that showed black stool. The patient was ordered for 2 units of packed RBC transfusion. Nephrology was involved and diuresis will be arranged for this patient. Meanwhile, the patient will be transferred to the intensive care unit for further care. The patient had a similar admission back in 11/07/2018 which she came into the hospital because of severe symptomatically anemia and hemoglobin of 4.9 requiring 3 units of packed red was a transfusion. She had a endoscopy and colonoscopy that showed large duodenal bulbar ulcer measuring at least 3-4 cm in size without any evidence of acute bleeding. The patient was also found to have mild gastritis. The patient was given Protonix 40 mg twice a day and she was advised to avoid nonsteroidal anti-inflammatory medication. The patient is seen today 11/20/2018 in follow-up in the intensive care unit. He is currently awake and alert in no acute distress. He's only complaint today is that of being hungry. He is also asking to go home. Denies any worsening shortness of breath, cough or congestion. Chest x-ray reveals low lung volumes and cardiomegaly with central vascular congestion and small bilateral effusions favoring CHF versus fluid volume overload. Underlying by basilar infiltrate/atelectasis is noted. Left basilar findings are new. He is ma intaining good O2 saturations up to 100% on 2 L/m per nasal cannula. He is been hemodynamically stable. He is status post 3 units of packed red blood cell transfusions. Current hemoglobin 6.1. White count 8.8. Creatinine 3.15. He is currently on ceftriaxone, IV Protonix. Desmopressin has been discontinued. Objective - Vital Signs Vital signs: Vital Signs Temp 98.1 F 11/19/18 20:45 Pulse 86 11/20/18 06:00 Resp 18 11/20/18 06:00 BP 117/58 11/20/18 06:00 Pulse Ox 100 11/20/18 06:00 Intake & Output 11/19/18 11/20/18 11/20/18 18:59 06:59 18:59 Intake Total 640 550 Output Total 995 2362 Balance -355 -1812 Weight 90.718 kg 99.7 kg Intake: IV 20 240 Sodium Chloride 0.9% 1, 20 240 000 ml @ 20 mls/hr IV . Q24H [facility] Rx#:[id number] Blood Product 620 310 Rc As-1 Unit 310 [id number] Rc As-1 Unit 310 [id number] Rc As-1 Unit 310 [id number] Output: Urine 995 162 Hemodialysis 2200 Other: Voiding Method Indwelling Catheter Indwelling Catheter - Exam General appearance: The patient is alert, oriented, in no acute distress. On 2 L nasal cannula. Head exam was generally normal. There was no scleral icterus or corneal arcus. Mucous membranes were moist.. Neck: Supple without lymphadenopathy. Trachea midline. Heart: S1 S2. Regular rate and rhythm. Lungs: Crackles in the bilateral posterior bases. Abdomen: Soft, nontender, nondistended with bowel sounds. No peritoneal signs. No palpable organomegaly or masses. Extremities: Normal skin color and turgor. No cyanosis, rash, ulceration, clubbing, or edema. Radial and pedal pulses are 2/4 bilaterally. Neurological: No focal deficits. Strength and sensation are grossly intact. Examination of the skin revealed no evidence of significant rashes, suspicious appearing nevi or other concerning lesions. - Labs CBC & Chem 7: 11/20/18 05:21 11/20/18 05:21 Labs: Abnormal Lab Results - Last 24 Hours (Table) 11/19/18 11/19/1819 Range/Units 09:10 09:10 09:10 WBC 12.7 H (3.8-10.6) k/uL RBC 1.39 L (4.30-5.90) m/uL Hgb 3.8 L* D (13.0-17.5) gm/dL Hct 12.6 L* (39.0-53.0) % MCHC 30.2 L (31.0-37.0) g/dL RDW 22.1 H (11.5-15.5) % Neutrophils # 10.0 H (1.3-7.7) k/uL Sodium 134 L (137-145) mmol/L Potassium (3.5-5.1) mmol/L Carbon Dioxide 16 L (22-30) mmol/L BUN 115 H* (9-20) mg/dL Creatinine 5.14 H (0.66-1.25) mg/dL Glucose 250 H (74-99) mg/dL Calcium 8.2 L (8.4-10.2) mg/dL Urine Protein (Negative) Urine Glucose (UA) (Negative) Urine Blood (Negative) Ur Leukocyte Esterase (Negative) Urine RBC (0-5) /hpf Urine WBC (0-5) /hpf Urine WBC Clumps (None) /hpf Ur Squamous Epith Cells (0-4) /hpf Amorphous Sediment (None) /hpf Urine Bacteria (None) /hpf Hyaline Casts (0-2) /lpf Urine Mucus (None) /hpf Crossmatch See Detail 11/19/18 11/19/18 11/19/18 Range/Units 10:17 14:23 18:40 WBC 11.1 H 13.0 H (3.8-10.6) k/uL RBC 1.29 L 1.97 L (4.30-5.90) m/uL Hgb 3.5 L* 5.6 L* D (13.0-17.5) gm/dL Hct 12.2 L* 17.8 L* (39.0-53.0) % MCHC 28.5 L (31.0-37.0) g/dL RDW 22.4 H 19.4 H (11.5-15.5) % Neutrophils # 8.8 H (1.3-7.7) k/uL Sodium (137-145) mmol/L Potassium (3.5-5.1) mmol/L Carbon Dioxide (22-30) mmol/L BUN (9-20) mg/dL Creatinine (0.66-1.25) mg/dL Glucose (74-99) mg/dL Calcium (8.4-10.2) mg/dL Urine Protein 1+ H (Negative) Urine Glucose (UA) Trace H (Negative) Urine Blood Small H (Negative) Ur Leukocyte Esterase Small H (Negative) Urine RBC (0-5) /hpf Urine WBC 7 H (0-5) /hpf Urine WBC Clumps (None) /hpf Ur Squamous Epith Cells 6 H (0-4) /hpf Amorphous Sediment Rare H (None) /hpf Urine Bacteria Rare H (None) /hpf Hyaline Casts (0-2) /lpf Urine Mucus Few H (None) /hpf Crossmatch 11/19/18 11/19/18 11/20/18 Range/Units 22:30 22:46 05:21 WBC 12.1 H (3.8-10.6) k/uL RBC 2.23 L 2.03 L (4.30-5.90) m/uL Hgb 6.5 L* 6.1 L* (13.0-17.5) gm/dL Hct 19.9 L* 18.7 L* (39.0-53.0) % MCHC (31.0-37.0) g/dL RDW 18.2 H 18.6 H (11.5-15.5) % Neutrophils # (1.3-7.7) k/uL Sodium (137-145) mmol/L Potassium (3.5-5.1) mmol/L Carbon Dioxide (22-30) mmol/L BUN (9-20) mg/dL Creatinine (0.66-1.25) mg/dL Glucose (74-99) mg/dL Calcium (8.4-10.2) mg/dL Urine Protein 2+ H (Negative) Urine Glucose (UA) (Negative) Urine Blood Large H (Negative) Ur Leukocyte Esterase Large H (Negative) Urine RBC 123 H (0-5) /hpf Urine WBC >182 H (0-5) /hpf Urine WBC Clumps Many H (None) /hpf Ur Squamous Epith Cells (0-4) /hpf Amorphous Sediment (None) /hpf Urine Bacteria Few H (None) /hpf Hyaline Casts 8 H (0-2) /lpf Urine Mucus (None) /hpf Crossmatch 11/20/18 Range/Units 05:21 WBC (3.8-10.6) k/uL RBC (4.30-5.90) m/uL Hgb (13.0-17.5) gm/dL Hct (39.0-53.0) % MCHC (31.0-37.0) g/dL RDW (11.5-15.5) % Neutrophils # (1.3-7.7) k/uL Sodium 133 L (137-145) mmol/L Potassium 3.4 L (3.5-5.1) mmol/L Carbon Dioxide (22-30) mmol/L BUN 51 H (9-20) mg/dL Creatinine 3.15 H (0.66-1.25) mg/dL Glucose 181 H (74-99) mg/dL Calcium 7.6 L (8.4-10.2) mg/dL Urine Protein (Negative) Urine Glucose (UA) (Negative) Urine Blood (Negative) Ur Leukocyte Esterase (Negative) Urine RBC (0-5) /hpf Urine WBC (0-5) /hpf Urine WBC Clumps (None) /hpf Ur Squamous Epith Cells (0-4) /hpf Amorphous Sediment (None) /hpf Urine Bacteria (None) /hpf Hyaline Casts (0-2) /lpf Urine Mucus (None) /hpf Crossmatch Assessment and Plan Assessment: Impression: 1 upper GI bleeding with profound anemia and bloody stool and hemoglobin of 3.8. The patient was scoped on 11/07/2018 and the findings were consistent with a large duodenal ulcer that was not bleeding at that time. The patient also has some mild antral gastritis. Hemoglobin has dropped again and the patient is being chest tubes with packed RBC 2 chronic renal failure, dialysis dependent patient has not had dialysis for several days 3 History of colon cancer status post resection. 4 Hyperlipidemia. 5 Hypertension. 6 Diabetes mellitus. 7 Glaucoma. 8 Diabetic retinopathy. 9 Chronic kidney disease. 10 Anemia of chronic disease. 11 History of cellulitis and osteomyelitis. 12 previous lower extremity venous stasis ulcers and amputation. Plan The patient was seen and evaluated by Dr. Mcgill. We'll continue to transfuse as needed. GI consult pending. Nephrology consult regarding hemodialysis. We'll continue with antibiotics. Continue to monitor him here closely in the intensive care unit. We'll continue to follow. I, the cosigning physician, performed a history & physical examination of the patient. Lungs sounds with crackles in the bilateral posterior bases. Mainta ining good O2 saturations in the 90s on 2 L/m per nasal cannula. I discussed the assessment and plan of care with my nurse practitioner, Riya Sorto. I attest to the above note as dictated by her.
[2018-11-20] MEDS: PANTOPRAZOLE 40 MG/10 ML VIAL IV SCH ×2 (09:07→21:51)
[2018-11-20] MEDS: SUCRALFATE 1 GM TAB PO SCH ×2 (09:07→18:13)
[2018-11-20] MEDS: TIMOLOL 0.5% OPHTH DROPS 5 ML BTL BOTH EYES SCH ×2 (09:40→21:52)
--- NOTE | 2018-11-20 11:56 | P.NPCON ---
History of Present Illness - Reason for Consult end stage renal disease - History of Present Illness Reason for consultation: End-stage renal disease History of present illness: Patient is a 68-year-old male seen in consultation for end-stage renal disease. He is maintained on hemodialysis on a Monday schedule. Patient was just started on hemodialysis at this month. After patient was discharged last week he did not go to outpatient center for hemodialysis. Apparently transportation wasn't set up. Patient came to the hospital to receive dialysis. He was noted to have a hemoglobin of 3.5 and was subsequently admitted. He has received 4 units of blood transfusion so far. I also give him a dose of IV DDAVP last night. He denies any active bleeding. No melena or hematochezia. No hemoptysis. No hematuria. Hemoglobin is up to 6.1. Hemodynamically he is stable. He received hemodialysis last night with 2.2 L ultrafiltration and is currently seeing while undergoing hemodialysis. He denies chest pain or shortness of breath. Vital signs are stable. General: The patient appeared well nourished and normally developed. HEENT: Head exam is unremarkable. Neck is without jugular venous distension. LUNGS: Lungs are clear to auscultation and percussion. Breath sounds decreased. HEART: Rate and Rhythm are regular. First and second heart sounds normal. No murmurs, rubs or gallops. ABDOMEN: Abdominal exam reveals normal bowel sounds. Non-tender and non- distended. No evidence of peritonitis. EXTREMITITES: 1+ chronic changes noted. edema. Past Medical History Past Medical History: Cancer, Diabetes Mellitus, Eye Disorder, Hyperlipidemia, Hypertension, Renal Disease, Skin Disorder Additional Past Medical History / Comment(s): Previous history of GI bleed secondary to duodenal ulcer, NIDDM type II, neuropathy bilateral feet, pt states he has current sores on bilateral lower legs/feet, past diabetic ulcers/venous stasis ulcers legs/feet and L foot cellulitis with 5th toe osteomyelitis in 2013, diabetic retinopathy bilaterally with surgery, bilateral glaucoma, chronic kidney disease, chronic anemia, past colon cancer with surgery-pt cannot recall if he had chemo/radiation, bronchitis, past R elbow fracture, allergic rhinitis. History of Any Multi-Drug Resistant Organisms: None Reported Past Surgical History: Bowel Resection Additional Past Surgical History / Comment(s): Colon resection, laser treatment for diabetic retinopathy, sinus surgery, R anterior lower leg wound debridement. Past Anesthesia/Blood Transfusion Reactions: No Reported Reaction Past Psychological History: No Psychological Hx Reported Smoking Status: Never smoker Past Alcohol Use History: None Reported Past Drug Use History: None Reported - Past Family History Father Family Medical History: No Reported History Additional Family Medical History / Comment(s): Father was healthy Mother Family Medical History: No Reported History Additional Family Medical History / Comment(s): Mother was healthy Medications and Allergies Home Medications Medication Instructions Recorded Confirmed Type Pravastatin Sodium [Pravachol] 20 mg PO HS 03/21/14 11/19/18 History Sodium Bicarbonate Tab 650 mg PO BID 07/15/14 11/19/18 History Ergocalciferol (Vitamin D2) 50,000 unit PO SA 11/04/18 11/19/18 History [Drisdol] Timolol 0.5% Ophth Soln [Timoptic 1 drop BOTH EYES BID 11/04/18 11/19/18 History 0.5% Ophth Soln] Carvedilol [Coreg] 6.25 mg PO BID #60 tablet 11/08/18 11/19/18 Rx Sucralfate [Carafate] 1 gm PO AC-BID #60 tab 11/08/18 11/19/18 Rx Torsemide [Demadex] 20 mg PO DAILY #60 tab 11/08/18 11/19/18 Rx amLODIPine [Norvasc] 10 mg PO DAILY #30 tab 11/08/18 11/19/18 Rx glipiZIDE XL [Glucotrol XL] 5 mg PO DAILY #30 tab.er.24 11/08/18 11/19/18 Rx Calcium Acetate [PhosLo] 667 mg PO AC-TID 11/19/18 11/19/18 History Pantoprazole [Protonix] 40 mg PO DAILY@0700 11/19/18 11/19/18 History Allergies Allergy/AdvReac Type Severity Reaction Status Date / Time No Known Allergies Allergy Verified 11/19/18 08:57 Physical Exam Vitals: Vital Signs Temp Pulse Pulse Pulse Resp BP BP 11/20/18 11:23 98.4 F 85 21 143/71 11/20/18 11:00 86 22 138/76 11/20/18 10:07 98.7 F 87 21 127/63 11/20/18 10:00 80 21 125/64 11/20/18 09:37 98.7 F 87 21 125/64 11/20/18 09:27 98.7 F 92 22 123/75 11/20/18 09:00 94 16 124/59 11/20/18 08:00 98.7 F 84 17 124/57 11/20/18 07:00 85 17 126/64 11/20/18 06:00 86 18 117/58 11/20/18 05:00 85 18 116/75 11/20/18 04:00 87 20 111/57 11/20/18 03:49 18 11/20/18 03:00 90 18 120/51 11/20/18 02:00 92 18 114/47 11/20/18 01:00 89 20 112/50 11/20/18 00:12 92 20 112/50 11/20/18 00:00 93 18 138/65 11/19/18 23:00 90 12 144/72 11/19/18 22:00 89 19 131/56 11/19/18 21:00 90 12 132/113 11/19/18 20:45 98.1 F 90 20 122/62 11/19/18 20:01 86 24 110/56 11/19/18 19:48 89 16 111/59 11/19/18 19:02 90 19 118/56 11/19/18 18:00 90 14 118/71 11/19/18 17:10 99.7 F H 98 22 100/76 11/19/18 17:00 100 26 H 118/72 11/19/18 16:00 99.4 F 96 17 110/72 11/19/18 15:38 98 12 110/72 11/19/18 15:28 99.4 F 100 22 110/72 11/19/18 15:03 105 H 22 120/70 11/19/18 15:01 99.6 F 102 H 12 120/70 11/19/18 14:58 99.8 F H 105 H 19 120/70 11/19/18 14:48 99.8 F H 98 12 117/74 11/19/18 14:13 99.8 F H 105 H 23 128/70 11/19/18 14:00 104 H 23 128/70 11/19/18 13:12 103 H 23 143/62 11/19/18 12:36 98.0 F 22 128/66 11/19/18 12:35 98 F 105 H 22 128/66 11/19/18 12:30 98 F 102 H 22 128/66 11/19/18 12:09 100 22 11/19/18 12:05 98.4 F 102 H 20 110/53 11/19/18 11:55 98.7 F 104 H 22 125/54 Pulse Ox 11/20/18 11:23 98 11/20/18 11:00 98 11/20/18 10:07 99 11/20/18 10:00 99 11/20/18 09:37 100 11/20/18 09:27 100 11/20/18 09:00 98 11/20/18 08:00 98 11/20/18 07:00 100 11/20/18 06:00 100 11/20/18 05:00 100 11/20/18 04:00 99 11/20/18 03:49 11/20/18 03:00 97 11/20/18 02:00 98 11/20/18 01:00 96 11/20/18 00:12 95 11/20/18 00:00 97 11/19/18 23:00 97 11/19/18 22:00 96 11/19/18 21:00 95 11/19/18 20:45 95 11/19/18 20:01 94 L 11/19/18 19:48 95 11/19/18 19:02 96 11/19/18 18:00 91 L 11/19/18 17:10 91 L 11/19/18 17:00 96 11/19/18 16:00 91 L 11/19/18 15:38 91 L 11/19/18 15:28 93 L 11/19/18 15:03 93 L 11/19/18 15:01 94 L 11/19/18 14:58 95 11/19/18 14:48 94 L 11/19/18 14:13 93 L 11/19/18 14:00 93 L 11/19/18 13:12 94 L 11/19/18 12:36 91 L 11/19/18 12:35 92 L 11/19/18 12:30 92 L 11/19/18 12:09 94 L 11/19/18 12:05 11/19/18 11:55 96 Intake and Output 11/19/18 11/20/18 11/20/18 22:59 06:59 14:59 Intake Total 720 160 390 Output Total 2385 97 95 Balance -1665 63 295 Intake: IV 100 160 80 Sodium Chloride 0.9% 1, 100 160 80 000 ml @ 20 mls/hr IV . Q24H [facility] Rx#:[id number] Blood Product 620 310 Rc As-1 Unit 310 [id number] Rc As-1 Unit 310 [id number] Rc As-1 Unit 310 [id number] Output: Urine 185 97 95 Hemodialysis 2200 Other: Voiding Method Indwelling Catheter Indwelling Catheter Indwelling Catheter Weight 99.7 kg Results - Lab Results Most recent lab results Calcium 7.6 mg/dL (8.4-10.2) L 11/20/18 05:21 Magnesium 2.2 mg/dL (1.6-2.3) 11/19/18 09:10 11/20/18 05:21 11/20/18 05:21 Assessment and Plan Plan: Assessment: 1. End-stage renal disease maintained on hemodialysis on a Monday schedule. 2. Diastolic CHF with trace tricuspid regurgitation. 3. Volume overload. 4. Acute blood loss anemia status post 4 units of blood transfusion. Hemoglobin 6.1. Status post IV DDAVP and November 19. GI following. Potential endoscopy planned. 5. Hypokalemia due to low potassium dialysate. Plan: Currently seen while undergoing hemodialysis. Next treatment on . Add Kuldeep. Thank you for the consultation. I will continue to follow the patient with you during his hospital stay.
[2018-11-20] MEDS ORDERED: DARBEPOETIN ALFA 40 MCG/0.4 ML SYRINGE SQ SCH (12:00)
--- NOTE | 2018-11-20 12:19 | P.CONS ---
History of Present Illness - Reason for Consult Consult date: 11/20/18 GI bleed Requesting physician: Sheri Ortiz - Chief Complaint Request for dialysis - History of Present Illness 68-year-old male past medical history of recent hospitalization for severe symptomatic anemia hemoglobin of 4.9 status post EGD with findings of large nonbleeding 3-4 cm duodenal bulb ulcer 11/07/2018, colon carcinoma, end-stage renal disease admitted to the ER with request for dialysis; no dialysis 1 week. Attempts were made on last admission to proceed with colonoscopy however patient did not complete his bowel prep. He was advised to proceed with colon oscopy as an outpatient. Admission hemoglobin 3.8. MCV 90.8. Platelet 193. White count 12.7. Received 3 units of blood present hemoglobin 6.1. Admission BUN 115. Creatinine 5.1. Presently BUN has improved 51. Creatinine 3.1. FOBT positive. Sodium 133. Potassium 3.4. Nursing reports passage of a dark green bowel movement last night. Denies abdominal pain. Denies hematemesis hematochezia or melena. Patient is not very forthcoming with history. Presently resting in bed requesting a diet. Receiving dialysis. Received a dose of IV DDAVP. Review of Systems Constitutional: Denies fever, chills, sweats, weight gain, or loss. HEENT: Negative for migraines, blurred vision or loss, earaches, drainage, tinnitus, oral mucosal lesions, dysphagia, or odynophagia. Cardiac: Negative for chest pain, arrhythmias, or palpitation. Respiratory: Negative for shortness of breath, hemoptysis, cough, or sputum production. Gastrointestinal: See HPI for pertinent findings. Genitourinary: Negative for hematuria, urgency, frequency, polyuria, dysuria, or penile discharge. Musculoskeletal: Negative for muscle aches, swelling, arthritis, and arthralgias. Neurologic: Negative for stroke or TIA. Endocrine: Negative for thyroid problems. Skin: Negative for rash or itching. Psychiatric: Negative history for depression and anxiety Past Medical History Past Medical History: Cancer, Diabetes Mellitus, Eye Disorder, Hyperlipidemia, Hypertension, Renal Disease, Skin Disorder Additional Past Medical History / Comment(s): Previous history of GI bleed secondary to duodenal ulcer, NIDDM type II, neuropathy bilateral feet, pt states he has current sores on bilateral lower legs/feet, past diabetic ulcers/venous stasis ulcers legs/feet and L foot cellulitis with 5th toe osteomyelitis in 2014, diabetic retinopathy bilaterally with surgery, bilateral glaucoma, chronic kidney disease, chronic anemia, past colon cancer with surgery-pt cannot recall if he had chemo/radiation, bronchitis, past R elbow fracture, allergic rhinitis. History of Any Multi-Drug Resistant Organisms: None Reported Past Surgical History: Bowel Resection Additional Past Surgical History / Comment(s): Colon resection, laser treatment for diabetic retinopathy, sinus surgery, R anterior lower leg wound debridement. Past Anesthesia/Blood Transfusion Reactions: No Reported Reaction Past Psychological History: No Psychological Hx Reported Smoking Status: Never smoker Past Alcohol Use History: None Reported Past Drug Use History: None Reported - Past Family History Father Family Medical History: No Reported History Additional Family Medical History / Comment(s): Father was healthy Mother Family Medical History: No Reported History Additional Family Medical History / Comment(s): Mother was healthy Medications and Allergies Home Medications Medication Instructions Recorded Confirmed Type Pravastatin Sodium [Pravachol] 20 mg PO HS 03/21/14 11/19/18 History Sodium Bicarbonate Tab 650 mg PO BID 07/15/14 11/19/18 History Ergocalciferol (Vitamin D2) 50,000 unit PO SA 11/04/18 11/19/18 History [Drisdol] Timolol 0.5% Ophth Soln [Timoptic 1 drop BOTH EYES BID 11/04/18 11/19/18 History 0.5% Ophth Soln] Carvedilol [Coreg] 6.25 mg PO BID #60 tablet 11/08/18 11/19/18 Rx Sucralfate [Carafate] 1 gm PO AC-BID #60 tab 11/08/18 11/19/18 Rx Torsemide [Demadex] 20 mg PO DAILY #60 tab 11/08/18 11/19/18 Rx amLODIPine [Norvasc] 10 mg PO DAILY #30 tab 11/08/18 11/19/18 Rx glipiZIDE XL [Glucotrol XL] 5 mg PO DAILY #30 tab.er.24 11/08/18 11/19/18 Rx Calcium Acetate [PhosLo] 667 mg PO AC-TID 11/19/18 11/19/18 History Pantoprazole [Protonix] 40 mg PO DAILY@0700 11/19/18 11/19/18 History Allergies Allergy/AdvReac Type Severity Reaction Status Date / Time No Known Allergies Allergy Verified 11/19/18 08:57 Physical Exam Vitals: Vital Signs Temp Pulse Pulse Pulse Resp BP BP 11/20/18 08:00 98.7 F 84 17 124/57 11/20/18 07:00 85 17 126/64 11/20/18 06:00 86 18 117/58 11/20/18 05:00 85 18 116/75 11/20/18 04:00 87 20 111/57 11/20/18 03:49 18 11/20/18 03:00 90 18 120/51 11/20/18 02:00 92 18 114/47 11/20/18 01:00 89 20 112/50 11/20/18 00:12 92 20 112/50 11/20/18 00:00 93 18 138/65 11/19/18 23:00 90 12 144/72 11/19/18 22:00 89 19 131/56 11/19/18 21:00 90 12 132/113 11/19/18 20:45 98.1 F 90 20 122/62 11/19/18 20:01 86 24 110/56 11/19/18 19:48 89 16 111/59 11/19/18 19:02 90 19 118/56 11/19/18 18:00 90 14 118/71 11/19/18 17:10 99.7 F H 98 22 100/76 11/19/18 17:00 100 26 H 118/72 11/19/18 16:00 99.4 F 96 17 110/72 11/19/18 15:38 98 12 110/72 11/19/18 15:28 99.4 F 100 22 110/72 11/19/18 15:03 105 H 22 120/70 11/19/18 15:01 99.6 F 102 H 12 120/70 11/19/18 14:58 99.8 F H 105 H 19 120/70 11/19/18 14:48 99.8 F H 98 12 117/74 11/19/18 14:13 99.8 F H 105 H 23 128/70 11/19/18 14:00 104 H 23 128/70 11/19/18 13:12 103 H 23 143/62 11/19/18 12:36 98.0 F 22 128/66 11/19/18 12:35 98 F 105 H 22 128/66 11/19/18 12:30 98 F 102 H 22 128/66 11/19/18 12:09 100 22 11/19/18 12:05 98.4 F 102 H 20 110/53 11/19/18 11:55 98.7 F 104 H 22 125/54 11/19/18 10:40 99 22 117/61 11/19/18 10:30 101 H 24 119/62 11/19/18 10:20 102 H 22 119/62 11/19/18 10:10 100 20 119/62 11/19/18 10:00 101 H 15 121/67 11/19/18 09:50 103 H 20 121/67 11/19/18 09:40 101 H 19 121/67 11/19/18 09:30 104 H 20 123/56 Pulse Ox 11/20/18 08:00 98 11/20/18 07:00 100 11/20/18 06:00 100 11/20/18 05:00 100 11/20/18 04:00 99 11/20/18 03:49 11/20/18 03:00 97 11/20/18 02:00 98 11/20/18 01:00 96 11/20/18 00:12 95 11/20/18 00:00 97 11/19/18 23:00 97 11/19/18 22:00 96 11/19/18 21:00 95 11/19/18 20:45 95 11/19/18 20:01 94 L 11/19/18 19:48 95 11/19/18 19:02 96 11/19/18 18:00 91 L 11/19/18 17:10 91 L 11/19/18 17:00 96 11/19/18 16:00 91 L 11/19/18 15:38 91 L 11/19/18 15:28 93 L 11/19/18 15:03 93 L 11/19/18 15:01 94 L 11/19/18 14:58 95 11/19/18 14:48 94 L 11/19/18 14:13 93 L 11/19/18 14:00 93 L 11/19/18 13:12 94 L 11/19/18 12:36 91 L 11/19/18 12:35 92 L 11/19/18 12:30 92 L 11/19/18 12:09 94 L 11/19/18 12:05 11/19/18 11:55 96 11/19/18 10:40 96 11/19/18 10:30 95 11/19/18 10:20 97 11/19/18 10:10 11/19/18 10:00 11/19/18 09:50 11/19/18 09:40 11/19/18 09:30 Intake and Output 11/19/18 11/20/18 11/20/18 22:59 06:59 14:59 Intake Total 720 160 60 Output Total 2385 97 75 Balance -1665 63 -15 Intake: IV 100 160 60 Sodium Chloride 0.9% 1, 100 160 60 000 ml @ 20 mls/hr IV . Q[facility]H [facility] Rx#:[id number] Blood Product 620 Rc As-1 Unit 310 [id number] Rc As-1 Unit 310 [id number] Output: Urine 185 97 75 Hemodialysis 2200 Other: Voiding Method Indwelling Catheter Indwelling Catheter Weight 99.7 kg General appearance: The patient is alert, oriented, in no acute distress. HET: Head is normocephalic and atraumatic. Pupils are equal and reactive. Oropharynx is clear without lesions. Neck: Supple without lymphadenopathy. Trachea midline. Heart: S1 S2. Regular rate and rhythm. Lungs: No crackles or wheezes are heard. Abdomen: Soft, nontender, nondistended with bowel sounds. No peritoneal signs. No palpable organomegaly or masses. Extremities: Normal skin color and turgor. No cyanosis, rash, ulceration, clubbing, or edema. Radial and pedal pulses are 2/4 bilaterally. Neurological: No focal deficits. Strength and sensation are grossly intact. Results CBC & Chem 7: 11/20/18 05:21 11/20/18 05:21 Labs: Abnormal Lab Results - Last 24 Hours (Table) 11/19/18 11/19/18 11/19/18 Range/Units 09:10 09:10 09:10 WBC 12.7 H (3.8-10.6) k/uL RBC 1.39 L (4.30-5.90) m/uL Hgb 3.8 L* D (13.0-17.5) gm/dL Hct 12.6 L* (39.0-53.0) % MCHC 30.2 L (31.0-37.0) g/dL RDW 22.1 H (11.5-15.5) % Neutrophils # 10.0 H (1.3-7.7) k/uL Sodium 134 L (137-145) mmol/L Potassium (3.5-5.1) mmol/L Carbon Dioxide 16 L (22-30) mmol/L BUN 115 H* (9-20) mg/dL Creatinine 5.14 H (0.66-1.25) mg/dL Glucose 250 H (74-99) mg/dL Calcium 8.2 L (8.4-10.2) mg/dL Urine Protein (Negative) Urine Glucose (UA) (Negative) Urine Blood (Negative) Ur Leukocyte Esterase (Negative) Urine RBC (0-5) /hpf Urine WBC (0-5) /hpf Urine WBC Clumps (None) /hpf Ur Squamous Epith Cells (0-4) /hpf Amorphous Sediment (None) /hpf Urine Bacteria (None) /hpf Hyaline Casts (0-2) /lpf Urine Mucus (None) /hpf Crossmatch See Detail 11/19/18 11/19/18 11/19/18 Range/Units 10:17 14:23 18:40 WBC 11.1 H 13.0 H (3.8-10.6) k/uL RBC 1.29 L 1.97 L (4.30-5.90) m/uL Hgb 3.5 L* 5.6 L* D (13.0-17.5) gm/dL Hct 12.2 L* 17.8 L* (39.0-53.0) % MCHC 28.5 L (31.0-37.0) g/dL RDW 22.4 H 19.4 H (11.5-15.5) % Neutrophils # 8.8 H (1.3-7.7) k/uL Sodium (137-145) mmol/L Potassium (3.5-5.1) mmol/L Carbon Dioxide (22-30) mmol/L BUN (9-20) mg/dL Creatinine (0.66-1.25) mg/dL Glucose (74-99) mg/dL Calcium (8.4-10.2) mg/dL Urine Protein 1+ H (Negative) Urine Glucose (UA) Trace H (Negative) Urine Blood Small H (Negative) Ur Leukocyte Esterase Small H (Negative) Urine RBC (0-5) /hpf Urine WBC 7 H (0-5) /hpf Urine WBC Clumps (None) /hpf Ur Squamous Epith Cells 6 H (0-4) /hpf Amorphous Sediment Rare H (None) /hpf Urine Bacteria Rare H (None) /hpf Hyaline Casts (0-2) /lpf Urine Mucus Few H (None) /hpf Crossmatch 11/19/18 11/19/18 11/20/18 Range/Units 22:30 22:46 05:21 WBC 12.1 H (3.8-10.6) k/uL RBC 2.23 L 2.03 L (4.30-5.90) m/uL Hgb 6.5 L* 6.1 L* (13.0-17.5) gm/dL Hct 19.9 L* 18.7 L* (39.0-53.0) % MCHC (31.0-37.0) g/dL RDW 18.2 H 18.6 H (11.5-15.5) % Neutrophils # (1.3-7.7) k/uL Sodium (137-145) mmol/L Potassium (3.5-5.1) mmol/L Carbon Dioxide (22-30) mmol/L BUN (9-20) mg/dL Creatinine (0.66-1.25) mg/dL Glucose (74-99) mg/dL Calcium (8.4-10.2) mg/dL Urine Protein 2+ H (Negative) Urine Glucose (UA) (Negative) Urine Blood Large H (Negative) Ur Leukocyte Esterase Large H (Negative) Urine RBC 123 H (0-5) /hpf Urine WBC >182 H (0-5) /hpf Urine WBC Clumps Many H (None) /hpf Ur Squamous Epith Cells (0-4) /hpf Amorphous Sediment (None) /hpf Urine Bacteria Few H (None) /hpf Hyaline Casts 8 H (0-2) /lpf Urine Mucus (None) /hpf Crossmatch 11/20/18 Range/Units 05:21 WBC (3.8-10.6) k/uL RBC (4.30-5.90) m/uL Hgb (13.0-17.5) gm/dL Hct (39.0-53.0) % MCHC (31.0-37.0) g/dL RDW (11.5-15.5) % Neutrophils # (1.3-7.7) k/uL Sodium 133 L (137-145) mmol/L Potassium 3.4 L (3.5-5.1) mmol/L Carbon Dioxide (22-30) mmol/L BUN 51 H (9-20) mg/dL Creatinine 3.15 H (0.66-1.25) mg/dL Glucose 181 H (74-99) mg/dL Calcium 7.6 L (8.4-10.2) mg/dL Urine Protein (Negative) Urine Glucose (UA) (Negative) Urine Blood (Negative) Ur Leukocyte Esterase (Negative) Urine RBC (0-5) /hpf Urine WBC (0-5) /hpf Urine WBC Clumps (None) /hpf Ur Squamous Epith Cells (0-4) /hpf Amorphous Sediment (None) /hpf Urine Bacteria (None) /hpf Hyaline Casts (0-2) /lpf Urine Mucus (None) /hpf Crossmatch Assessment and Plan (1) Symptomatic anemia Narrative/Plan: 68-year-old male with a history of end-stage renal disease hemodialysis dependent and recent hospitalization for severe symptomatic anemia status post EGD with findings of a large nonbleeding 3-4 cm duodenal bulbar ulcer colonoscopy incomplete secondary to refusal of bowel prep admitted with request for dialysis with recurrent severe symptomatic anemia elevated BUN and creatinine and positive guaiac suggestive of acute GI bleed. Presently not manifesting active GI bleed symptoms. Receiving dialysis status post transfusion with a present hemoglobin of 6.1 passage of dark green bowel movement last night. Current Visit: Yes Status: Acute Code(s): D64.9 - ANEMIA, UNSPECIFIED SNOMED Code(s): 270649861 (2) Guaiac positive stools Current Visit: Yes Status: Acute Code(s): R19.5 - OTHER FECAL ABNORMALITIES SNOMED Code(s): 06159987 (3) Missed dialysis Current Visit: Yes Status: Acute Code(s): NJL4777 - SNOMED Code(s): 852568127 (4) Acute on chronic renal failure Current Visit: No Status: Acute Code(s): N17.9 - ACUTE KIDNEY FAILURE, UNSPECIFIED; N18.9 - CHRONIC KIDNEY DISEASE, UNSPECIFIED SNOMED Code(s): 418178153 (5) Altered mental status Current Visit: No Status: Acute Code(s): R41.82 - ALTERED MENTAL STATUS, UNSPECIFIED SNOMED Code(s): 028920901 (6) Duodenal ulcer Current Visit: No Status: Acute Code(s): K26.9 - DUODENAL ULCER, UNSP ACUTE OR CHRONIC, W/O HEMOR OR PERF SNOMED Code(s): 58262652 (7) History of colon cancer Current Visit: No Status: Acute Code(s): Z85.038 - PERSONAL HISTORY OF MALIGNANT NEOPLASM OF LARGE INTESTINE SNOMED Code(s): 264485194 (8) End stage renal disease on dialysis Current Visit: Yes Status: Acute Code(s): N18.6 - END STAGE RENAL DISEASE; Z99.2 - DEPENDENCE ON RENAL DIALYSIS SNOMED Code(s): 918520218 (9) Acute blood loss anemia Current Visit: Yes Status: Acute Code(s): D62 - ACUTE POSTHEMORRHAGIC ANEMIA SNOMED Code(s): 458464094 Plan: 1. Nothing by mouth except medications at this time. Protonix 40 mg twice daily. CBC every 6 hours. Dialysis per nephrology recommendations. Blood transfusions as advised. 2. Inpatient EGD not planned at this time if patient manifests active bleeding recommend general surgical consult and/or transfer to tertiary center for embolization evaluation. Thank you for this kind referral and the opportunity to participate in the care of your patient. This consultation was discussed with Dr. Michael. The impression and plan of care have been directed as dictated.
--- NOTE | 2018-11-20 13:21 | P.PN ---
Subjective This is a pleasant 68 years old male with past medical history of diabetes mellitus, hypertension, hyperlipidemia, diabetic neuropathy, bilateral glaucoma, chronic kidney disease, history of colon cancer status post surgical resection. He was recently discharged from the hospital for altered mental status of unclear etiology. His mental status is reported improved after patient was started on hemodialysis last time. He underwent removal of 1200 L of fluid from his right sided pleural effusion via thoracocentesis. And he was started on he modialysis recently on 11/14/2018. Patient presents with missed hemodialysis and possible worsening mental status. Patient poor historian. On presentation he was mildly tachycardic at 104, blood pressure 110/53, saturating 94% on room air. His afebrile.. He is afebrile. Labs showing severe anemia with hemoglobin 3.5, WBC 11.1 K, platelet count within normal. Creatinine 5.14, sodium 134. Occult blood in the stool is positive. EKG shows sinus tachycardia with PACs, heart rate is 106. QTC 423. The emergency room patient was started on Protonix. Patient is getting currently 2 units of blood transfusion. 11/20/2018 Patient wasn't awake, no new complaint. No chest pain or dyspnea. Denies abdominal pain. Last bowel movement he still have some blood in it. No dysuria or change in frequency. Patient is afebrile are more than 24 hours. Hemoglobin is 6.1, the WBC is 8.8. UA is suspicious of infection. Urine culture is pending. However her fever subsided and her leukocytosis came back to normal so we'll keep on ceftriaxone for now. Following the culture results. Patient is getting hemodialysis today. GI team are following the case. Patient looks like he had large nonbleeding 3-4 cm duodenal ulcer on recent EGD. GI team recommended surgery consult or transferring to a tertiary center if bleeding continues or recurs. No plan for EGD now as per GI Objective - Vital Signs Vital signs: Vital Signs Temp 98.4 F 11/20/18 12:00 Pulse 83 11/20/18 12:00 Resp 19 11/20/18 12:00 BP 121/68 11/20/18 12:00 Pulse Ox 98 11/20/18 12:00 Intake & Output 11/19/18 11/20/18 11/20/18 18:59 06:59 18:59 Intake Total 640 550 430 Output Total 995 2362 115 Balance -355 1812 315 Weight 90.718 kg 99.7 kg Intake: IV 20 240 120 Sodium Chloride 0.9% 1, 20 240 120 000 ml @ 20 mls/hr IV . Q24H [facility] Rx#:[id number] Blood Product 620 310 310 Rc As-1 Unit 310 [id number] Rc As-1 Unit 310 [id number] Rc As-1 Unit 310 [id number] Rc As-1 Unit 310 [id number] Output: Urine 995 162 115 Hemodialysis 2200 Other: Voiding Method Indwelling Catheter Indwelling Catheter Indwelling Catheter - Exam GENERAL: The patient is alert and oriented x1-2, not in any acute distress. Well developed, well nourished. HEENT: Pupils are round and equally reacting to light. EOMI. No scleral icterus. No conjunctival pallor. Normocephalic, atraumatic. No pharyngeal erythema. No thyromegaly. CARDIOVASCULAR: S1 and S2 present. No murmurs, rubs, or gallops. PULMONARY: Chest is clear to auscultation, no wheezing or crackles. ABDOMEN: Soft, nontender, nondistended, normoactive bowel sounds. No palpable organomegaly. MUSCULOSKELETAL: No joint swelling or deformity. EXTREMITIES: No cyanosis, clubbing, or pedal edema. NEUROLOGICAL: Gross neurological examination did not reveal any focal deficits. SKIN: No rashes. - Labs CBC & Chem 7: 11/20/18 05:21 11/20/18 05:21 Labs: Abnormal Lab Results - Last 24 Hours (Table) 11/19/18 11/19/18 11/19/18 Range/Units 09:10 14:23 18:40 WBC 13.0 H (3.8-10.6) k/uL RBC 1.97 L (4.30-5.90) m/uL Hgb 5.6 L* D (13.0-17.5) gm/dL Hct 17.8 L* (39.0-53.0) % RDW 19.4 H (11.5-15.5) % Sodium (137-145) mmol/L Potassium (3.5-5.1) mmol/L BUN (9-20) mg/dL Creatinine (0.66-1.25) mg/dL Glucose (74-99) mg/dL Calcium (8.4-10.2) mg/dL Urine Protein 1+ H (Negative) Urine Glucose (UA) Trace H (Negative) Urine Blood Small H (Negative) Ur Leukocyte Esterase Small H (Negative) Urine RBC (0-5) /hpf Urine WBC 7 H (0-5) /hpf Urine WBC Clumps (None) /hpf Ur Squamous Epith Cells 6 H (0-4) /hpf Amorphous Sediment Rare H (None) /hpf Urine Bacteria Rare H (None) /hpf Hyaline Casts (0-2) /lpf Urine Mucus Few H (None) /hpf Crossmatch See Detail 11/19/18 11/19/18 11/20/18 Range/Units 22:30 22:46 05:21 WBC 12.1 H (3.8-10.6) k/uL RBC 2.23 L 2.03 L (4.30-5.90) m/uL Hgb 6.5 L* 6.1 L* (13.0-17.5) gm/dL Hct 19.9 L* 18.7 L* (39.0-53.0) % RDW 18.2 H 18.6 H (11.5-15.5) % Sodium (137-145) mmol/L Potassium (3.5-5.1) mmol/L BUN (9-20) mg/dL Creatinine (0.66-1.25) mg/dL Glucose (74-99) mg/dL Calcium (8.4-10.2) mg/dL Urine Protein 2+ H (Negative) Urine Glucose (UA) (Negative) Urine Blood Large H (Negative) Ur Leukocyte Esterase Large H (Negative) Urine RBC 123 H (0-5) /hpf Urine WBC >182 H (0-5) /hpf Urine WBC Clumps Many H (None) /hpf Ur Squamous Epith Cells (0-4) /hpf Amorphous Sediment (None) /hpf Urine Bacteria Few H (None) /hpf Hyaline Casts 8 H (0-2) /lpf Urine Mucus (None) /hpf Crossmatch 11/20/18 Range/Units 05:21 WBC (3.8-10.6) k/uL RBC (4.30-5.90) m/uL Hgb (13.0-17.5) gm/dL Hct (39.0-53.0) % RDW (11.5-15.5) % Sodium 133 L (137-145) mmol/L Potassium 3.4 L (3.5-5.1) mmol/L BUN 51 H (9-20) mg/dL Creatinine 3.15 H (0.66-1.25) mg/dL Glucose 181 H (74-99) mg/dL Calcium 7.6 L (8.4-10.2) mg/dL Urine Protein (Negative) Urine Glucose (UA) (Negative) Urine Blood (Negative) Ur Leukocyte Esterase (Negative) Urine RBC (0-5) /hpf Urine WBC (0-5) /hpf Urine WBC Clumps (None) /hpf Ur Squamous Epith Cells (0-4) /hpf Amorphous Sediment (None) /hpf Urine Bacteria (None) /hpf Hyaline Casts (0-2) /lpf Urine Mucus (None) /hpf Crossmatch Microbiology - Last 24 Hours (Table) 11/19/18 22:30 Urine Culture - Preliminary Urine,Catheterized Assessment and Plan Assessment: Acute GI bleed. Recent history of nonbleeding 3-4 cm duodenal ulcer Severe anemia, mostly acute blood loss anemia Altered mental status, mostly metabolic encephalopathy. Improved Possible urinary tract infection End-stage kidney disease on hemodialysis Diabetes mellitus Essential hypertension Hyperlipidemia Diabetic neuropathy History of bilateral rectal, Chronic kidney disease History of colon cancer status post surgical resection Plan: This is a pleasant 68 years male who presents with severe anemia with occult blood positive stools. Continue with Protonix, blood transfusion as needed, GI consult none planning to do EGD, and if bleeding continues and transferred to tertiary center or call surgical consult. Continue with hemodialysis as per nephrology team. Pulmonary critical care input is appreciated. Labs and medication were reviewed.. Continue same treatment. Continue with symptomatic treatment. Resume home medication. Monitor lytes and vitals. DVT and GI prophylaxis. Further recommendations of the clinical course of the patient DVT prophylaxis: No decannulation and review of GI bleed GI Prophylaxis: Protonix Prognosis is guarded
[2018-11-20 14:29] LABS: Anisocytosis Slight; HCT 22.3 % (39.0-53.0); HGB 7.1 gm/dL (13.0-17.5); Hypochromasia Slight; MCH 29.2 pg (25.0-35.0); MCHC 31.9 g/dL (31.0-37.0); MCV 91.6 fL (80.0-100.0); Mean Platelet Volume 8.1; Platelet Count 171 k/uL (150-450); Poikilocytosis Slight; RBC 2.43 m/uL (4.30-5.90); RDW 18.2 % (11.5-15.5); WBC 9.3 k/uL (3.8-10.6)
[2018-11-20] MEDS: PRAVASTATIN SODIUM 20 MG TAB PO SCH (21:52)
[2018-11-21 06:02] LABS: Anisocytosis Slight; Basophils % (A) 0 %; Eosinophils # (A) 0.4 k/uL (0-0.7); Eosinophils % (A) 6 %; HCT 20.4 % (39.0-53.0); Hypochromasia Slight; Lymphocytes # (A) 1.1 k/uL (1.0-4.8); Lymphocytes % (A) 16 %; MCH 29.3 pg (25.0-35.0); MCHC 31.4 g/dL (31.0-37.0); MCV 93.2 fL (80.0-100.0); Macrocytosis Slight; Mean Platelet Volume 8.5; Monocytes # (A) 0.6 k/uL (0-1.0); Monocytes % (A) 10 %; Neutrophils # (A) 4.2 k/uL (1.3-7.7); Neutrophils % (A) 65 %; Platelet Count 172 k/uL (150-450); Poikilocytosis Slight; RBC 2.19 m/uL (4.30-5.90); RDW 18.2 % (11.5-15.5); WBC 6.5 k/uL (3.8-10.6)
[2018-11-21 06:23] LABS: Calcium 7.7 mg/dL (8.4-10.2); Potassium 3.3 mmol/L (3.5-5.1)
[2018-11-21 06:24] LABS: HGB 6.4 gm/dL (13.0-17.5)
[2018-11-21] MEDS: SUCRALFATE 1 GM TAB PO SCH ×2 (08:56→17:29)
[2018-11-21] MEDS: PANTOPRAZOLE 40 MG/10 ML VIAL IV SCH ×2 (08:56→19:53)
[2018-11-21] MEDS: TIMOLOL 0.5% OPHTH DROPS 5 ML BTL BOTH EYES SCH ×2 (08:57→19:53)
--- NOTE | 2018-11-21 09:32 | P.PN ---
Subjective Patient is seen in follow-up for end-stage renal disease. He is maintained on hemodialysis on a Monday schedule. Patient has received 4 units of blood so far. Hemoglobin 6.4 this morning. Patient denies any active bleeding. Tolerated hemodialysis well yesterday. Vital signs are stable. General: The patient appeared well nourished and normally developed. HEENT: Head exam is unremarkable. Neck is without jugular venous distension. LUNGS: Lungs are clear to auscultation and percussion. Breath sounds decreased. HEART: Rate and Rhythm are regular. First and second heart sounds normal. No murmurs, rubs or gallops. ABDOMEN: Abdominal exam reveals normal bowel sounds. Non-tender and non- distended. No evidence of peritonitis. EXTREMITITES: No clubbing, cyanosis, or edema. Objective - Vital Signs Vital signs: Vital Signs Temp 98.7 F 11/21/18 08:00 Pulse 77 11/21/18 09:00 Resp 17 11/21/18 09:00 BP 147/82 11/21/18 09:00 Pulse Ox 95 11/21/18 09:00 Intake & Output 11/20/18 11/21/18 11/21/18 18:59 06:59 18:59 Intake Total 570 220 60 Output Total 2165 122 75 Balance -1595 98 -15 Weight 107.1 kg Intake: IV 260 220 60 Sodium Chloride 0.9% 1, 260 220 60 000 ml @ 20 mls/hr IV . Q24H [facility] Rx#:[id number] Blood Product 310 Rc As-1 Unit 310 [id number] Output: Urine 165 122 75 Hemodialysis 2000 Other: Voiding Method Indwelling Catheter Indwelling Catheter - Labs CBC & Chem 7: 11/21/18 05:40 11/21/18 05:40 Labs: Abnormal Lab Results - Last 24 Hours (Table) 11/19/18 11/20/18 11/21/18 Range/Units 09:10 12:50 05:40 RBC 2.43 L 2.19 L (4.30-5.90) m/uL Hgb 7.1 L 6.4 L* (13.0-17.5) gm/dL Hct 22.3 L 20.4 L (39.0-53.0) % RDW 18.2 H 18.2 H (11.5-15.5) % Sodium (137-145) mmol/L Potassium (3.5-5.1) mmol/L BUN (9-20) mg/dL Creatinine (0.66-1.25) mg/dL Glucose (74-99) mg/dL Calcium (8.4-10.2) mg/dL Crossmatch See Detail 11/21/18 Range/Units 05:40 RBC (4.30-5.90) m/uL Hgb (13.0-17.5) gm/dL Hct (39.0-53.0) % RDW (11.5-15.5) % Sodium 136 L (137-145) mmol/L Potassium 3.3 L (3.5-5.1) mmol/L BUN 29 H (9-20) mg/dL Creatinine 2.75 H (0.66-1.25) mg/dL Glucose 129 H (74-99) mg/dL Calcium 7.7 L (8.4-10.2) mg/dL Crossmatch Microbiology - Last 24 Hours (Table) 11/19/18 20:43 Blood Culture - Preliminary Blood No Growth after 24 hours 11/19/18 22:30 Urine Culture - Preliminary Urine,Catheterized Assessment and Plan Plan: Assessment: 1. End-stage renal disease maintained on hemodialysis on a Monday schedule. 2. Diastolic CHF with trace tricuspid regurgitation. 3. Volume overload. Better with ultrafiltration. 4. Acute blood loss anemia status post 4 units of blood transfusion. Hemoglobin 6.4. Status post IV DDAVP and November 19. GI following. Also on Aranesp. 5. Hypokalemia due to low potassium dialysate. Plan: Hemodialysis tomorrow. Replace potassium. 40 mEq today. Monitor hemoglobin closely. Scheduled to receive 1 unit of blood today.
[2018-11-21] MEDS ORDERED: POTASSIUM CHLORIDE ER 20 MEQ TAB.ER PO STA (09:42)
--- NOTE | 2018-11-21 10:17 | P.PN ---
Subjective Progress Note Date: 11/21/18 Principal diagnosis: GI bleed, anemia, renal failure A 68-year-old female patient presented to the emergency department requesting for dialysis. The patient is a poor historian. There is also concern for some mental delay. The patient was brought in via EMS. The patient has not had dialysis for almost a week. According to the EMS the patient has not had dialysis for the past 6 days. The last reported dialysis was of last week according to the patient. Her primary care physician is Dr. Malachi Crisostomo. The patient also sees Dr. Oneil from nephrology. The patient was also having melanotic stools. Her blood work in the ED showed a hemoglobin of 3.8 with a MCV of 90 and a white cell count 12.7. Her creatinine was at 5.1 with a BUN of 115. Serum bicarb was 16 with anion gap of 13. Blood sugar was at 250. Calcium was at 8.2. Stool occult was positive for blood. EKG showing sinus tachycardia with premature atrial complexes and left axis deviation and the nonspecific intra ventricular block. Based on this rectal exam was also done that showed black stool. The patient was ordered for 2 units of packed RBC transfusion. Nephrology was involved and diuresis will be arranged for this patient. Meanwhile, the patient will be transferred to the intensive care unit for further care. The patient had a similar admission back in 11/07/2018 which she came into the hospital because of severe symptomatically anemia and hemoglobin of 4.9 requiring 3 units of packed red was a transfusion. She had a endoscopy and colonoscopy that showed large duodenal bulbar ulcer measuring at least 3-4 cm in size without any evidence of acute bleeding. The patient was also found to have mild gastritis. The patient was given Protonix 40 mg twice a day and she was advised to avoid nonsteroidal anti-inflammatory medication. The patient is seen today 11/20/2018 in follow-up in the intensive care unit. He is currently awake and alert in no acute distress. He's only complaint today is that of being hungry. He is also asking to go home. Denies any worsening shortness of breath, cough or congestion. Chest x-ray reveals low lung volumes and cardiomegaly with central vascular congestion and small bilateral effusions favoring CHF versus fluid volume overload. Underlying by basilar infiltrate/atelectasis is noted. Left basilar findings are new. He is ma intaining good O2 saturations up to 100% on 2 L/m per nasal cannula. He is been hemodynamically stable. He is status post 3 units of packed red blood cell transfusions. Current hemoglobin 6.1. White count 8.8. Creatinine 3.15. He is currently on ceftriaxone, IV Protonix. Desmopressin has been discontinued. The patient is seen today 11/21/2018 in follow-up in the intensive care unit. He is currently awake and alert in no acute distress. He is maintaining good O2 saturations in the mid 90s on 2 L/m per nasal cannula. He's been afebrile. Hemodynamically stable. Blood culture reveals no growth thus far. Urine culture pending. White count 6.5. Hemoglobin 6.4. Creatinine 2.75. He has received 4 units of packed red blood cells thus far. Fifth is ordered for today. He had received hemodialysis 2 days in a row. They will do it again tomorrow. He remains on ceftriaxone. He is on Aranesp. Protonix 40 mg IV twice a day. Carafate. No active bleeding noted. Currently nothing by mouth. Objective - Vital Signs Vital signs: Vital Signs Temp 98.7 F 11/21/18 08:00 Pulse 77 11/21/18 09:00 Resp 17 11/21/18 09:00 BP 147/82 11/21/18 09:00 Pulse Ox 95 11/21/18 09:00 Intake & Output 11/20/18 11/21/18 11/21/18 18:59 06:59 18:59 Intake Total 570 220 60 Output Total 2165 122 75 Balance -1595 98 -15 Weight 107.1 kg Intake: IV 260 220 60 Sodium Chloride 0.9% 1, 260 220 60 000 ml @ 20 mls/hr IV . Q24H [facility] Rx#:[id number] Blood Product 310 Rc As-1 Unit 310 [id number] Output: Urine 165 122 75 Hemodialysis 2000 Other: Voiding Method Indwelling Catheter Indwelling Catheter Indwelling Catheter - Exam General appearance: Pleasant 68-year-old gentleman that is quite pale, is alert, oriented, in no acute distress. On 2 L nasal cannula. Head exam was generally normal. There was no scleral icterus or corneal arcus. Mucous membranes were moist.. Neck: Supple without lymphadenopathy. Trachea midline. Heart: S1 S2. Regular rate and rhythm. Lungs: Crackles in the bilateral posterior bases. Abdomen: Soft, nontender, nondistended with bowel sounds. No peritoneal signs. No palpable organomegaly or masses. Extremities: Normal skin color and turgor. No cyanosis, rash, ulceration, clubbing, or edema. Radial and pedal pulses are 2/4 bilaterally. Neurological: No focal deficits. Strength and sensation are grossly intact. Examination of the skin revealed no evidence of significant rashes, suspicious appearing nevi or other concerning lesions. - Labs CBC & Chem 7: 11/21/18 05:40 11/21/18 05:40 Labs: Abnormal Lab Results - Last 24 Hours (Table) 11/19/18 11/20/18 11/21/18 Range/Units 09:10 12:50 05:40 RBC 2.43 L 2.19 L (4.30-5.90) m/uL Hgb 7.1 L 6.4 L* (13.0-17.5) gm/dL Hct 22.3 L 20.4 L (39.0-53.0) % RDW 18.2 H 18.2 H (11.5-15.5) % Sodium (137-145) mmol/L Potassium (3.5-5.1) mmol/L BUN (9-20) mg/dL Creatinine (0.66-1.25) mg/dL Glucose (74-99) mg/dL Calcium (8.4-10.2) mg/dL Crossmatch See Detail 11/21/18 Range/Units 05:40 RBC (4.30-5.90) m/uL Hgb (13.0-17.5) gm/dL Hct (39.0-53.0) % RDW (11.5-15.5) % Sodium 136 L (137-145) mmol/L Potassium 3.3 L (3.5-5.1) mmol/L BUN 29 H (9-20) mg/dL Creatinine 2.75 H (0.66-1.25) mg/dL Glucose 129 H (74-99) mg/dL Calcium 7.7 L (8.4-10.2) mg/dL Crossmatch Microbiology - Last 24 Hours (Table) 11/19/18 20:43 Blood Culture - Preliminary Blood No Growth after 24 hours 11/19/18 22:30 Urine Culture - Preliminary Urine,Catheterized Assessment and Plan Assessment: Impression: 1 upper GI bleeding with profound anemia and bloody stool and hemoglobin of 3.8. The patient was scoped on 11/07/2018 and the findings were consistent with a large duodenal ulcer that was not bleeding at that time. The patient also has some mild antral gastritis. Hemoglobin has dropped again today at 6.4 and will be receiving his fifth unit of packed red blood cells this admission. 2 chronic renal failure, dialysis dependent patient has calluses Monday, none today. Resume Monday tomorrow. 3 History of colon cancer status post resection. 4 Hyperlipidemia. 5 Hypertension. 6 Diabetes mellitus. 7 Glaucoma. 8 Diabetic retinopathy. 9 Chronic kidney disease. 10 Anemia of chronic disease. 11 History of cellulitis and osteomyelitis. 12 previous lower extremity venous stasis ulcers and amputation. Plan The patient was seen and evaluated by Dr. Mcgill. He'll receive and fifth unit of packed red blood cells today. We'll continue to transfuse as needed. GI is on the case. We'll consult surgery. Nephrology is following hemodialysis. We'll continue with antibiotics. Continue to monitor him here closely in the intensive care unit. We'll continue to follow. I, the cosigning physician, performed a history & physical examination of the patient. Lungs sounds with crackles in the bilateral posterior bases. Maintaining good O2 saturations in the 90s on 2 L/m per nasal cannula. I discussed the assessment and plan of care with my nurse practitioner, Riya Sorto. I attest to the above note as dictated by her.
--- NOTE | 2018-11-21 10:48 | P.PN ---
Subjective This is a pleasant 68 years old male with past medical history of diabetes mellitus, hypertension, hyperlipidemia, diabetic neuropathy, bilateral glaucoma, chronic kidney disease, history of colon cancer status post surgical resection. He was recently discharged from the hospital for altered mental status of unclear etiology. His mental status is reported improved after patient was started on hemodialysis last time. He underwent removal of 1200 L of fluid from his right sided pleural effusion via thoracocentesis. And he was started on he modialysis recently on 11/14/2018. Patient presents with missed hemodialysis and possible worsening mental status. Patient poor historian. On presentation he was mildly tachycardic at 104, blood pressure 110/53, saturating 94% on room air. His afebrile.. He is afebrile. Labs showing severe anemia with hemoglobin 3.5, WBC 11.1 K, platelet count within normal. Creatinine 5.14, sodium 134. Occult blood in the stool is positive. EKG shows sinus tachycardia with PACs, heart rate is 106. QTC 423. The emergency room patient was started on Protonix. Patient is getting currently 2 units of blood transfusion. 11/20/2018 Patient wasn't awake, no new complaint. No chest pain or dyspnea. Denies abdominal pain. Last bowel movement he still have some blood in it. No dysuria or change in frequency. Patient is afebrile are more than 24 hours. Hemoglobin is 6.1, the WBC is 8.8. UA is suspicious of infection. Urine culture is pending. However her fever subsided and her leukocytosis came back to normal so we'll keep on ceftriaxone for now. Following the culture results. Patient is getting hemodialysis today. GI team are following the case. Patient looks like he had large nonbleeding 3-4 cm duodenal ulcer on recent EGD. GI team recommended surgery consult or transferring to a tertiary center if bleeding continues or recurs. No plan for EGD now as per GI 11/21/2018 Patient remains in the ICU for GI bleed and possible UTI. Patient with history of 3-4 cm duodenal ulcer on recent EGD. His hemoglobin is lower compared to yesterday from 7.1 down to 6.4. Patient is given 1 units of blood transfusion today. Hemodynamically he is stable. Potassium 3.3, creatinine is 2.75, urine culture showing no growth. Patient is still on hemodialysis and nephrology team are following. Surgery team has been consulted as he's needing deficient of blood transfusion today. Patient remains on ceftriaxone and Protonix twice daily. Carafate is added. Coreg and Norvasc and glipizide on hold. Objective - Vital Signs Vital signs: Vital Signs Temp 98.7 F 11/21/18 08:00 Pulse 77 11/21/18 09:00 Resp 17 11/21/18 09:00 BP 147/82 11/21/18 09:00 Pulse Ox 95 11/21/18 09:00 Intake & Output 11/20/18 11/21/18 11/21/18 18:59 06:59 18:59 Intake Total 570 220 60 Output Total 2165 122 75 Balance -1595 98 -15 Weight 107.1 kg Intake: IV 260 220 60 Sodium Chloride 0.9% 1, 260 220 60 000 ml @ 20 mls/hr IV . Q24H [facility] Rx#:[id number] Blood Product 310 Rc As-1 Unit 310 [id number] Output: Urine 165 122 75 Hemodialysis 2000 Other: Voiding Method Indwelling Catheter Indwelling Catheter Indwelling Catheter - Exam GENERAL: The patient is alert and oriented x1-2, not in any acute distress. Well developed, well nourished. HEENT: Pupils are round and equally reacting to light. EOMI. No scleral icterus. No conjunctival pallor. Normocephalic, atraumatic. No pharyngeal erythema. No thyromegaly. CARDIOVASCULAR: S1 and S2 present. No murmurs, rubs, or gallops. PULMONARY: Chest is clear to auscultation, no wheezing or crackles. ABDOMEN: Soft, nontender, nondistended, normoactive bowel sounds. No palpable organomegaly. MUSCULOSKELETAL: No joint swelling or deformity. EXTREMITIES: No cyanosis, clubbing, or pedal edema. NEUROLOGICAL: Gross neurological examination did not reveal any focal deficits. SKIN: No rashes. - Labs CBC & Chem 7: 11/21/18 05:40 11/21/18 05:40 Labs: Abnormal Lab Results - Last 24 Hours (Table) 11/19/18 11/20/18 11/21/18 Range/Units 09:10 12:50 05:40 RBC 2.43 L 2.19 L (4.30-5.90) m/uL Hgb 7.1 L 6.4 L* (13.0-17.5) gm/dL Hct 22.3 L 20.4 L (39.0-53.0) % RDW 18.2 H 18.2 H (11.5-15.5) % Sodium (137-145) mmol/L Potassium (3.5-5.1) mmol/L BUN (9-20) mg/dL Creatinine (0.66-1.25) mg/dL Glucose (74-99) mg/dL Calcium (8.4-10.2) mg/dL Crossmatch See Detail 11/21/18 Range/Units 05:40 RBC (4.30-5.90) m/uL Hgb (13.0-17.5) gm/dL Hct (39.0-53.0) % RDW (11.5-15.5) % Sodium 136 L (137-145) mmol/L Potassium 3.3 L (3.5-5.1) mmol/L BUN 29 H (9-20) mg/dL Creatinine 2.75 H (0.66-1.25) mg/dL Glucose 129 H (74-99) mg/dL Calcium 7.7 L (8.4-10.2) mg/dL Crossmatch Microbiology - Last 24 Hours (Table) 11/19/18 22:30 Urine Culture - Final Urine,Catheterized 11/19/18 20:43 Blood Culture - Preliminary Blood No Growth after 24 hours Assessment and Plan Assessment: Acute GI bleed. Recent history of nonbleeding 3-4 cm duodenal ulcer Severe anemia, mostly acute blood loss anemia Altered mental status, mostly metabolic encephalopathy. Improved Possible urinary tract infection End-stage kidney disease on hemodialysis Diabetes mellitus Essential hypertension Hyperlipidemia Diabetic neuropathy History of bilateral rectal, Chronic kidney disease History of colon cancer status post surgical resection Plan: This is a pleasant 68 years male who presents with severe anemia with occult blood positive stools. Continue with Protonix, blood transfusion as needed, GI consult none planning to do EGD, and if bleeding continues and transferred to tertiary center or call surgical consult. Stones call surgical team for consult. Continue with hemodialysis as per nephrology team. Pulmonary critical care input is appreciated. Labs and medication were reviewed.. Continue same treatment. Continue with symptomatic treatment. Resume home medication. Monitor lytes and vitals. DVT and GI prophylaxis. Further recommendations of the clinical course of the patient DVT prophylaxis: No decannulation and review of GI bleed GI Prophylaxis: Protonix Prognosis is guarded
[2018-11-21] MEDS: SODIUM CHLORIDE 0.9% 1,000 ML IV SCH (12:56)
[2018-11-21 15:29] LABS: Anisocytosis Slight; HCT 24.3 % (39.0-53.0); HGB 7.7 gm/dL (13.0-17.5); Hypochromasia Slight; MCH 29.6 pg (25.0-35.0); MCHC 31.9 g/dL (31.0-37.0); MCV 92.9 fL (80.0-100.0); Mean Platelet Volume 8.5; Platelet Count 178 k/uL (150-450); Poikilocytosis Slight; RBC 2.62 m/uL (4.30-5.90); RDW 17.2 % (11.5-15.5); WBC 7.6 k/uL (3.8-10.6)
--- NOTE | 2018-11-21 17:02 | CDI ---
Documentation Clarification Form Date: 11/21/2018 4:36:22 PM From: Amanda Alvarado RN, CCDS Admit Date: 11/19/2018 11:22:00 AM Patient Name: Ross Bales Visit Number: [id number] Discharge Date: ATTENTION: The Clinical Documentation Specialists (CDI) and [facility] Coding Staff appreciate your assistance in clarifying documentation. Please respond to the clarification below the line at the bottom and electronically sign. The CDI & [facility] Coding staff will review the response and follow-up if needed. Please note: Queries are made part of the Legal Health Record. If you have any questions, please contact the author of this message via ITS. Dr. Bj Newby Diastolic CHF is documented in the Nephrology consult starting on 11/20/18 and subsequent documentation and further clarification is needed. History/Risk Factors: Diabetes Mellitus , Hypertension ESRD on HD, Clinical Indicators: 68-year-old male who present with altered mental status. Patient states he has not had dialysis since last week, per EMS in 6 days. Lungs were clear to auscultation bilaterally, no rhonchi, no wheezes. VS/Pulse OX: 122/77 106 20 98.6 99 % RA, 95 % 2/L NC (11/21/18) HGB 6.1, HCT 18.7, BUN 51, CR 3.15 Extremities 1+ chronic changes noted, edema Echocardiogram Results: 11/06/18 ED 55-60 % Chest X Ray: Low lung volumes and cardiomegaly with central vascular congestion and small bilateral pleural effusions favoring CHF exacerbation or fluid overload state. Underlying bibasilar acute infiltrate and/or atelectasis is noted. Treatment: Monitor CBC, lytes Hemodialysis per orders In your professional opinion, can you please clarify the acuity of the CHF if known? Acute Diastolic Heart Failure: Acute on Chronic Diastolic Heart Failure Unable to Determine Other, please specify (Last Revision: July 2017) acute on chronic diastolic chf MTDD
[2018-11-21] MEDS: PRAVASTATIN SODIUM 20 MG TAB PO SCH (19:53)
--- NOTE | 2018-11-21 20:45 | P.PN ---
Subjective Progress Note Date: 11/21/18 Principal diagnosis: Duodenal ulcer, acute blood loss anemia Patient seen lying in bed with nonbloody bowel movements today. No abdominal pain reported. Has tolerated some liquids. Objective - Vital Signs Vital signs: Vital Signs Temp 98.4 F 11/21/18 11:33 Pulse 76 11/21/18 11:33 Resp 14 11/21/18 11:33 BP 135/64 11/21/18 11:33 Pulse Ox 97 11/21/18 11:33 Intake & Output 11/20/18 11/21/18 11/21/18 18:59 06:59 18:59 Intake Total 570 220 120 Output Total 2165 122 110 Balance -1595 98 10 Weight 107.1 kg Intake: IV 260 220 120 Sodium Chloride 0.9% 1, 260 220 70 000 ml @ 20 mls/hr IV . Q24H [facility] Rx#:[id number] cefTRIAXone 1 gm In 50 Sodium Chloride 0.9% 50 ml @ 100 mls/hr IVPB Q24HR [facility] Rx#:[id number] Blood Product 310 0 Rc As-1 Unit 310 [id number] Rc As-1 Unit 0 [id number] Output: Urine 165 122 110 Hemodialysis 2000 Other: Voiding Method Indwelling Catheter Indwelling Catheter Indwelling Catheter - Exam On physical examination, patient appears comfortable in no apparent distress. HEAD: Normocephalic, atraumatic. EYES: No scleral icterus. No conjunctival injection. MOUTH: No lesions, tongue midline. NECK: Trachea midline, no gross abnormalities. CHEST: Decreased air entry bilaterally. HEART: S1-S2 appreciated. ABDOMEN: Soft, obese. Bowel sounds are positive. No organomegaly. No guarding or rigidity. EXTREMITIES: Mild bilateral pedal edema. SKIN: No rashes, no jaundice. NEUROLOGIC: Alert and oriented x3. No focal deficits. - Labs CBC & Chem 7: 11/21/18 15:20 11/21/18 15:20 Labs: Abnormal Lab Results - Last 24 Hours (Table) 11/19/18 11/20/18 11/21/18 Range/Units 09:10 12:50 05:40 RBC 2.43 L 2.19 L (4.30-5.90) m/uL Hgb 7.1 L 6.4 L* (13.0-17.5) gm/dL Hct 22.3 L 20.4 L (39.0-53.0) % RDW 18.2 H 18.2 H (11.5-15.5) % Sodium (137-145) mmol/L Potassium (3.5-5.1) mmol/L BUN (9-20) mg/dL Creatinine (0.66-1.25) mg/dL Glucose (74-99) mg/dL Calcium (8.4-10.2) mg/dL Crossmatch See Detail 11/21/18 Range/Units 05:40 RBC (4.30-5.90) m/uL Hgb (13.0-17.5) gm/dL Hct (39.0-53.0) % RDW (11.5-15.5) % Sodium 136 L (137-145) mmol/L Potassium 3.3 L (3.5-5.1) mmol/L BUN 29 H (9-20) mg/dL Creatinine 2.75 H (0.66-1.25) mg/dL Glucose 129 H (74-99) mg/dL Calcium 7.7 L (8.4-10.2) mg/dL Crossmatch Microbiology - Last 24 Hours (Table) 11/19/18 22:30 Urine Culture - Final Urine,Catheterized 11/19/18 20:43 Blood Culture - Preliminary Blood No Growth after 24 hours Assessment and Plan (1) Acute blood loss anemia Narrative/Plan: 68-year-old male with a history of end-stage renal disease on hemodialysis and recent hospitalization for severe symptomatic anemia status post EGD with findings of a large nonbleeding 3-4 cm duodenal bulb ulcer. Colonoscopy was also attempted at that time an incomplete as the patient refused bowel prep. Presenting with recurrent anemia of acute blood loss was elevated BUN and creatinine and a positive guaiac. Today hemoglobin was 6.4 from 7.1 previously 1 nonbloody brown bowel movement reported. Current Visit: Yes Status: Acute Code(s): D62 - ACUTE POSTHEMORRHAGIC ANEMIA SNOMED Code(s): 437834696 (2) Guaiac positive stools Current Visit: Yes Status: Acute Code(s): R19.5 - OTHER FECAL ABNORMALITIES SNOMED Code(s): 69590064 (3) Duodenal ulcer Current Visit: No Status: Acute Code(s): K26.9 - DUODENAL ULCER, UNSP ACUTE OR CHRONIC, W/O HEMOR OR PERF SNOMED Code(s): 80000015 Plan: Supportive care Okay for liquids Continue to monitor hemoglobin and hematocrit and transfuse as needed Continue Protonix 40 mg IV twice daily Given size and location of patient's ulcerative recurrent signs or symptoms of GI bleeding occurs or patient has fall in hemoglobin patient would benefit from referral to tertiary center where a CT angiography with correlating or surgical intervention could be performed Continue other medical management Thank you for allowing us to straighten the care of the patient we will continue to follow
[2018-11-22 05:51] LABS: Anisocytosis Slight; Basophils % (A) 0 %; Eosinophils # (A) 0.6 k/uL (0-0.7); Eosinophils % (A) 8 %; HCT 24.6 % (39.0-53.0); HGB 7.9 gm/dL (13.0-17.5); Hypochromasia Slight; Lymphocytes # (A) 1.1 k/uL (1.0-4.8); Lymphocytes % (A) 14 %; MCH 29.9 pg (25.0-35.0); MCHC 32.3 g/dL (31.0-37.0); MCV 92.6 fL (80.0-100.0); Mean Platelet Volume 7.9; Monocytes # (A) 0.6 k/uL (0-1.0); Monocytes % (A) 8 %; Neutrophils # (A) 5.2 k/uL (1.3-7.7); Neutrophils % (A) 68 %; Platelet Count 209 k/uL (150-450); Poikilocytosis Slight; RBC 2.65 m/uL (4.30-5.90); RDW 17.1 % (11.5-15.5); WBC 7.7 k/uL (3.8-10.6)
[2018-11-22 06:15] LABS: Calcium 7.9 mg/dL (8.4-10.2); Potassium 3.9 mmol/L (3.5-5.1)
[2018-11-22] MEDS: SUCRALFATE 1 GM TAB PO SCH ×2 (06:45→17:48)
--- NOTE | 2018-11-22 07:13 | P.GSCN ---
History of Present Illness Consult date: 11/21/18 Reason for Consult: GI bleed Requesting physician: Leonela Amanda History of present illness: CHIEF COMPLAINT: GI bleed HISTORY OF PRESENT ILLNESS: 68-year-old male who was admitted to the hospital secondary to GI bleed. Patient was recently hospitalized and underwent EGD with findings of a large nonbleeding 3-4 cm duodenal bulb ulcer on 11/07/2017. Colonoscopy was ordered at that time. Not complete bowel prep. Patient presents back to the hospital with a hemoglobin of 3.8. Most recent hemoglobin 7.9. Patient has received 5 units of RBCs since admission. Patient currently denies abdominal pain. He denies hematemesis, hematochezia, or melena. PAST MEDICAL HISTORY: See list. PAST SURGICAL HISTORY: See list. SOCIAL HISTORY: No illicit drug use. REVIEW OF SYSTEMS: CONSTITUTIONAL: Denies fever or chills. HEENT: Denies blurred vision, vision changes, or eye pain. Denies hemoptysis CARDIOVASCULAR: Denies chest pain or pressure. RESPIRATORY: No shortness of breath. GASTROINTESTINAL: Refer to HPI for pertinent findings HEMATOLOGIC: Denies bleeding disorders. GENITOURINARY: Denies any blood in urine. SKIN: Denies pruitis. Denies rash. PHYSICAL EXAM: VITAL SIGNS: Reviewed. GENERAL: Well-developed in no acute distress. HEENT: No sclera icterus. Extraocular movements grossly intact. Moist buccal mucosa. Head is atraumatic, normocephalic. ABDOMEN: Soft. Nondistended. Nontender. NEUROLOGIC: Alert and oriented. Cranial nerves II through XII grossly intact. ASSESSMENT: 1. Acute blood loss anemia 2. Recent EGD revealing large nonbleeding duodenal ulcer PLAN: Continue to monitor hemoglobin. Protonix IV BID. Recommendations from a surgery standpoint include transfer to a tertiary center for possible embolization if patient continues require RBC transfusions or develops active bleeding. Will defer transfer decision to primary service. Nurse practitioner note has been reviewed by physician. Signing provider agrees with the documented findings, assessment, and plan of care. Past Medical History Past Medical History: Cancer, Diabetes Mellitus, Eye Disorder, Hyperlipidemia, Hypertension, Renal Disease, Skin Disorder Additional Past Medical History / Comment(s): Previous history of GI bleed secondary to duodenal ulcer, NIDDM type II, neuropathy bilateral feet, pt states he has current sores on bilateral lower legs/feet, past diabetic ulcers/venous stasis ulcers legs/feet and L foot cellulitis with 5th toe osteomyelitis in 2014, diabetic retinopathy bilaterally with surgery, bilateral glaucoma, chronic kidney disease, chronic anemia, past colon cancer with surgery-pt cannot recall if he had chemo/radiation, bronchitis, past R elbow fracture, allergic rhinitis. History of Any Multi-Drug Resistant Organisms: None Reported Past Surgical History: Bowel Resection Additional Past Surgical History / Comment(s): Colon resection, laser treatment for diabetic retinopathy, sinus surgery, R anterior lower leg wound debridement. Past Anesthesia/Blood Transfusion Reactions: No Reported Reaction Past Psychological History: No Psychological Hx Reported Smoking Status: Never smoker Past Alcohol Use History: None Reported Past Drug Use History: None Reported - Past Family History Father Family Medical History: No Reported History Additional Family Medical History / Comment(s): Father was healthy Mother Family Medical History: No Reported History Additional Family Medical History / Comment(s): Mother was healthy Medications and Allergies Home Medications Medication Instructions Recorded Confirmed Type Pravastatin Sodium [Pravachol] 20 mg PO HS 03/21/14 11/19/18 History Sodium Bicarbonate Tab 650 mg PO BID 07/15/14 11/19/18 History Ergocalciferol (Vitamin D2) 50,000 unit PO SA 11/04/18 11/19/18 History [Drisdol] Timolol 0.5% Ophth Soln [Timoptic 1 drop BOTH EYES BID 11/04/18 11/19/18 History 0.5% Ophth Soln] Carvedilol [Coreg] 6.25 mg PO BID #60 tablet 11/08/18 11/19/18 Rx Sucralfate [Carafate] 1 gm PO AC-BID #60 tab 11/08/18 11/19/18 Rx Torsemide [Demadex] 20 mg PO DAILY #60 tab 11/08/18 11/19/18 Rx amLODIPine [Norvasc] 10 mg PO DAILY #30 tab 11/08/18 11/19/18 Rx glipiZIDE XL [Glucotrol XL] 5 mg PO DAILY #30 tab.er.24 11/08/18 11/19/18 Rx Calcium Acetate [PhosLo] 667 mg PO AC-TID 11/19/18 11/19/18 History Pantoprazole [Protonix] 40 mg PO DAILY@0700 11/19/18 11/19/18 History Allergies Allergy/AdvReac Type Severity Reaction Status Date / Time No Known Allergies Allergy Verified 11/19/18 08:57 Surgical - Exam Vital Signs Pulse Ox 98 11/19/18 08:53 Results - Labs 11/22/18 05:30 11/22/18 05:30 Abnormal Lab Results - Last 24 Hours (Table) 11/19/18 11/21/18 11/21/18 Range/Units 09:10 05:40 05:40 RBC 2.19 L (4.30-5.90) m/uL Hgb 6.4 L* (13.0-17.5) gm/dL Hct 20.4 L (39.0-53.0) % RDW 18.2 H (11.5-15.5) % Sodium 136 L (137-145) mmol/L Potassium 3.3 L (3.5-5.1) mmol/L BUN 29 H (9-20) mg/dL Creatinine 2.75 H (0.66-1.25) mg/dL Glucose 129 H (74-99) mg/dL Calcium 7.7 L (8.4-10.2) mg/dL Iron (65-175) ug/dL Crossmatch See Detail 11/21/18 11/21/18 Range/Units 05:40 15:20 RBC 2.62 L (4.30-5.90) m/uL Hgb 7.7 L (13.0-17.5) gm/dL Hct 24.3 L (39.0-53.0) % RDW 17.2 H (11.5-15.5) % Sodium (137-145) mmol/L Potassium (3.5-5.1) mmol/L BUN (9-20) mg/dL Creatinine (0.66-1.25) mg/dL Glucose (74-99) mg/dL Calcium (8.4-10.2) mg/dL Iron 15 L (65-175) ug/dL Crossmatch Microbiology - Last 24 Hours (Table) 11/19/18 22:30 Urine Culture - Final Urine,Catheterized 11/19/18 20:43 Blood Culture - Preliminary Blood No Growth after 24 hours Diabetes panel 11/21/18 11/21/18 Range/Units 05:40 15:20 Sodium 136 L (137-145) mmol/L Potassium 3.3 L 3.7 (3.5-5.1) mmol/L Chloride 102 (98-107) mmol/L Carbon Dioxide 28 (22-30) mmol/L BUN 29 H (9-20) mg/dL Creatinine 2.75 H (0.66-1.25) mg/dL Glucose 129 H (74-99) mg/dL Calcium 7.7 L (8.4-10.2) mg/dL Calcium panel 11/21/18 Range/Units 05:40 Calcium 7.7 L (8.4-10.2) mg/dL Pituitary panel 11/21/18 11/21/18 Range/Units 05:40 15:20 Sodium 136 L (137-145) mmol/L Potassium 3.3 L 3.7 (3.5-5.1) mmol/L Chloride 102 (98-107) mmol/L Carbon Dioxide 28 (22-30) mmol/L BUN 29 H (9-20) mg/dL Creatinine 2.75 H (0.66-1.25) mg/dL Glucose 129 H (74-99) mg/dL Calcium 7.7 L (8.4-10.2) mg/dL Adrenal panel 11/21/18 11/21/18 Range/Units 05:40 15:20 Sodium 136 L (137-145) mmol/L Potassium 3.3 L 3.7 (3.5-5.1) mmol/L Chloride 102 (98-107) mmol/L Carbon Dioxide 28 (22-30) mmol/L BUN 29 H (9-20) mg/dL Creatinine 2.75 H (0.66-1.25) mg/dL Glucose 129 H (74-99) mg/dL Calcium 7.7 L (8.4-10.2) mg/dL
--- NOTE | 2018-11-22 07:16 | XR ---
EXAMINATION TYPE: XR chest 1V portable DATE OF EXAM: 11/22/2018 COMPARISON: 11/19/2018 HISTORY: Continued shortness of breath. Recent fever and leukocytosis. TECHNIQUE: Single frontal view of the chest is obtained. FINDINGS: There is an increasing moderate right pleural effusion and trace left pleural effusion silas t is stable. Left basilar airspace disease has slightly improved in the interim however right infrahi lar and basilar airspace disease is unchanged. Central pulmonary vascular congestion and mild interst itial edema remain. Dual lumen hemodialysis catheter is similar in position and there is no enlarged cardiomediastinal silhouette redemonstrated. Mild osseous demineralization. IMPRESSION: 1. Progressing, now moderate, right pleural effusion and persistent right basilar airspace disease dyson spected to represent pneumonia. Improved aeration of the left lung base. 2. Pulmonary vascular congestion and interstitial edema from fluid overload may be cardiogenic or non cardiogenic in this patient with cardiomegaly and a hemodialysis catheter.
[2018-11-22] MEDS: PANTOPRAZOLE 40 MG/10 ML VIAL IV SCH ×2 (08:42→20:31)
[2018-11-22] MEDS: TIMOLOL 0.5% OPHTH DROPS 5 ML BTL BOTH EYES SCH ×2 (08:43→23:15)
[2018-11-22] MEDS ORDERED: POTASSIUM CHLORIDE ER 20 MEQ TAB.ER PO STA (09:45)
--- NOTE | 2018-11-22 10:17 | P.PN ---
Subjective Patient is seen in follow-up for end-stage renal disease. He is maintained on hemodialysis on a Monday schedule. Patient has received 5 units of blood so far. Hemoglobin 7.9 this morning. Patient denies any active bleeding. Currently seen while undergoing hemodialysis. He is hungry. Vital signs are stable. General: The patient appeared well nourished and normally developed. HEENT: Head exam is unremarkable. Neck is without jugular venous distension. LUNGS: Lungs are clear to auscultation and percussion. Breath sounds decreased. HEART: Rate and Rhythm are regular. First and second heart sounds normal. No murmurs, rubs or gallops. ABDOMEN: Abdominal exam reveals normal bowel sounds. Non-tender and non- distended. No evidence of peritonitis. EXTREMITITES: No clubbing, cyanosis, or edema. Objective - Vital Signs Vital signs: Vital Signs Temp 98.5 F 11/22/18 08:00 Pulse 77 11/22/18 09:30 Resp 16 11/22/18 09:30 BP 163/73 11/22/18 09:30 Pulse Ox 93 L 11/22/18 09:30 Intake & Output 11/21/18 11/22/18 11/22/18 18:59 06:59 18:59 Intake Total 510 120 750 Output Total 240 290 63 Balance 270 -170 687 Weight 96.6 kg Intake: IV 200 120 30 Sodium Chloride 0.9% 1, 150 120 30 000 ml @ 20 mls/hr IV . Q24H BRIAN Rx#:[id number] cefTRIAXone 1 gm In 50 Sodium Chloride 0.9% 50 ml @ 100 mls/hr IVPB Q24HR BRIAN Rx#:[id number] Oral 720 Blood Product 310 Rc As-1 Unit 310 [id number] Output: Urine 240 290 63 Other: Voiding Method Indwelling Catheter Indwelling Catheter - Labs CBC & Chem 7: 11/22/18 05:30 11/22/18 05:30 Labs: Abnormal Lab Results - Last 24 Hours (Table) 11/19/18 11/21/18 11/21/18 Range/Units 09:10 05:40 15:20 RBC 2.62 L (4.30-5.90) m/uL Hgb 7.7 L (13.0-17.5) gm/dL Hct 24.3 L (39.0-53.0) % RDW 17.2 H (11.5-15.5) % Sodium (137-145) mmol/L BUN (9-20) mg/dL Creatinine (0.66-1.25) mg/dL Glucose (74-99) mg/dL Calcium (8.4-10.2) mg/dL Iron 15 L (65-175) ug/dL Crossmatch See Detail 11/22/18 11/22/18 Range/Units 05:30 05:30 RBC 2.65 L (4.30-5.90) m/uL Hgb 7.9 L (13.0-17.5) gm/dL Hct 24.6 L (39.0-53.0) % RDW 17.1 H (11.5-15.5) % Sodium 135 L (137-145) mmol/L BUN 34 H (9-20) mg/dL Creatinine 3.36 H (0.66-1.25) mg/dL Glucose 158 H (74-99) mg/dL Calcium 7.9 L (8.4-10.2) mg/dL Iron (65-175) ug/dL Crossmatch Microbiology - Last 24 Hours (Table) 11/19/18 20:43 Blood Culture - Preliminary Blood No Growth after 48 hours 11/19/18 22:30 Urine Culture - Final Urine,Catheterized Assessment and Plan Plan: Assessment: 1. End-stage renal disease maintained on hemodialysis on a Monday schedule. 2. Diastolic CHF with trace tricuspid regurgitation. 3. Volume overload. Better with ultrafiltration. 4. Acute blood loss anemia status post 5 units of blood transfusion. Hemoglobin 7.9. Status post IV DDAVP and November 19. GI following. Also on Aranesp. 5. Hypokalemia due to low potassium dialysate. Improved. 6. Duodenal ulcer. No active bleeding noted during last endoscopy done November 07. Plan: Currently seen while undergoing hemodialysis. Next treatment on Monday. Monitor hemoglobin closely.
--- NOTE | 2018-11-22 11:16 | P.PN ---
Subjective This is a pleasant 68 years old male with past medical history of diabetes mellitus, hypertension, hyperlipidemia, diabetic neuropathy, bilateral glaucoma, chronic kidney disease, history of colon cancer status post surgical resection. He was recently discharged from the hospital for altered mental status of unclear etiology. His mental status is reported improved after patient was started on hemodialysis last time. He underwent removal of 1200 L of fluid from his right sided pleural effusion via thoracocentesis. And he was started on he modialysis recently on 11/14/2018. Patient presents with missed hemodialysis and possible worsening mental status. Patient poor historian. On presentation he was mildly tachycardic at 104, blood pressure 110/53, saturating 94% on room air. His afebrile.. He is afebrile. Labs showing severe anemia with hemoglobin 3.5, WBC 11.1 K, platelet count within normal. Creatinine 5.14, sodium 134. Occult blood in the stool is positive. EKG shows sinus tachycardia with PACs, heart rate is 106. QTC 423. The emergency room patient was started on Protonix. Patient is getting currently 2 units of blood transfusion. 11/20/2018 Patient wasn't awake, no new complaint. No chest pain or dyspnea. Denies abdominal pain. Last bowel movement he still have some blood in it. No dysuria or change in frequency. Patient is afebrile are more than 24 hours. Hemoglobin is 6.1, the WBC is 8.8. UA is suspicious of infection. Urine culture is pending. However her fever subsided and her leukocytosis came back to normal so we'll keep on ceftriaxone for now. Following the culture results. Patient is getting hemodialysis today. GI team are following the case. Patient looks like he had large nonbleeding 3-4 cm duodenal ulcer on recent EGD. GI team recommended surgery consult or transferring to a tertiary center if bleeding continues or recurs. No plan for EGD now as per GI 11/21/2018 Patient remains in the ICU for GI bleed and possible UTI. Patient with history of 3-4 cm duodenal ulcer on recent EGD. His hemoglobin is lower compared to yesterday from 7.1 down to 6.4. Patient is given 1 units of blood transfusion today. Hemodynamically he is stable. Potassium 3.3, creatinine is 2.75, urine culture showing no growth. Patient is still on hemodialysis and nephrology team are following. Surgery team has been consulted as he's needing deficient of blood transfusion today. Patient remains on ceftriaxone and Protonix twice daily. Carafate is added. Coreg and Norvasc and glipizide on hold. Final urine culture shows no growth 11/22/2018 Patient remains in the ICU, awake with no chest pain or dyspnea. No abdominal pain. Today he is getting hemodialysis. Blood pressure 159/70 and saturation 94% on 2 L. Hemoglobin today is 7.9. Surgical team of been consulted and they recommended no surgical intervention and to transfer the patient to tertiary center if he needs embolization in case of more bleeding Final urine culture shows no growth in blood culture is negative. No fever for more than 72 hours. However we'll continue with ceftriaxone for possible right pneumonia on the chest x-ray. Patient with hypertensive today we may start his home dose of Coreg 6.25 twice a day. He is saturating 94% and 2 L oxygen via NC. Objective - Vital Signs Vital signs: Vital Signs Temp 97.9 F 11/22/18 10:59 Pulse 83 11/22/18 11:00 Resp 22 11/22/18 11:00 BP 143/75 11/22/18 11:00 Pulse Ox 94 L 11/22/18 11:00 Intake & Output 11/21/18 11/22/18 11/22/18 18:59 06:59 18:59 Intake Total 510 120 750 Output Total 277 695 0110 Balance 270 -170 -1513 Weight 96.6 kg Intake: IV 200 120 30 Sodium Chloride 0.9% 1, 150 120 30 000 ml @ 20 mls/hr IV . Q24H BRIAN Rx#:[id number] cefTRIAXone 1 gm In 50 Sodium Chloride 0.9% 50 ml @ 100 mls/hr IVPB Q24HR BRIAN Rx#:[id number] Oral 720 Blood Product 310 Rc As-1 Unit 310 [id number] Output: Urine 240 290 63 Hemodialysis 2200 Other: Voiding Method Indwelling Catheter Indwelling Catheter Indwelling Catheter - Exam GENERAL: The patient is alert and oriented x1-2, not in any acute distress. Well developed, well nourished. HEENT: Pupils are round and equally reacting to light. EOMI. No scleral icterus. No conjunctival pallor. Normocephalic, atraumatic. No pharyngeal erythema. No th yromegaly. CARDIOVASCULAR: S1 and S2 present. No murmurs, rubs, or gallops. PULMONARY: Chest is clear to auscultation, no wheezing or crackles. ABDOMEN: Soft, nontender, nondistended, normoactive bowel sounds. No palpable organomegaly. MUSCULOSKELETAL: No joint swelling or deformity. EXTREMITIES: No cyanosis, clubbing, or pedal edema. NEUROLOGICAL: Gross neurological examination did not reveal any focal deficits. SKIN: No rashes. - Labs CBC & Chem 7: 11/22/18 05:30 11/22/18 05:30 Labs: Abnormal Lab Results - Last 24 Hours (Table) 11/19/18 11/21/18 11/21/18 Range/Units 09:10 05:40 15:20 RBC 2.62 L (4.30-5.90) m/uL Hgb 7.7 L (13.0-17.5) gm/dL Hct 24.3 L (39.0-53.0) % RDW 17.2 H (11.5-15.5) % Sodium (137-145) mmol/L BUN (9-20) mg/dL Creatinine (0.66-1.25) mg/dL Glucose (74-99) mg/dL Calcium (8.4-10.2) mg/dL Iron 15 L (65-175) ug/dL Crossmatch See Detail 11/22/18 11/22/18 Range/Units 05:30 05:30 RBC 2.65 L (4.30-5.90) m/uL Hgb 7.9 L (13.0-17.5) gm/dL Hct 24.6 L (39.0-53.0) % RDW 17.1 H (11.5-15.5) % Sodium 135 L (137-145) mmol/L BUN 34 H (9-20) mg/dL Creatinine 3.36 H (0.66-1.25) mg/dL Glucose 158 H (74-99) mg/dL Calcium 7.9 L (8.4-10.2) mg/dL Iron (65-175) ug/dL Crossmatch Microbiology - Last 24 Hours (Table) 11/19/18 20:43 Blood Culture - Preliminary Blood No Growth after 48 hours 11/19/18 22:30 Urine Culture - Final Urine,Catheterized Assessment and Plan Assessment: Acute GI bleed. Recent history of nonbleeding 3-4 cm duodenal ulcer Severe anemia, mostly acute blood loss anemia Altered mental status, mostly metabolic encephalopathy. Improved Possible urinary tract infection, patient finish antibiotic course End-stage kidney disease on hemodialysis Diabetes mellitus Essential hypertension Hyperlipidemia Diabetic neuropathy History of bilateral rectal, Chronic kidney disease History of colon cancer status post surgical resection Plan: This is a pleasant 68 years male who presents with severe anemia with occult blood positive stools. Continue with Protonix, blood transfusion as needed, GI consult not planning to do EGD, and if bleeding continues and transferred to tertiary center or call surgical consult. call surgical team for consult. Continue with hemodialysis as per nephrology team. Pulmonary critical care input is appreciated. Labs and medication were reviewed.. Continue same treatment. Continue with symptomatic treatment. Resume home medication. Monitor lytes and vitals. DVT and GI prophylaxis. Further recommendations of the clinical course of the patient DVT prophylaxis: No anticoagulation and review of GI bleed GI Prophylaxis: Protonix Prognosis is guarded
[2018-11-22] MEDS: SODIUM CHLORIDE 0.9% 1,000 ML IV SCH (11:50)
--- NOTE | 2018-11-22 13:31 | P.PN ---
Subjective Progress Note Date: 11/22/18 Principal diagnosis: GI bleed, anemia, renal failure A 68-year-old female patient presented to the emergency department requesting for dialysis. The patient is a poor historian. There is also concern for some mental delay. The patient was brought in via EMS. The patient has not had dialysis for almost a week. According to the EMS the patient has not had dialysis for the past 6 days. The last reported dialysis was of last week according to the patient. Her primary care physician is Dr. Malachi Crisostomo. The patient also sees Dr. Oneil from nephrology. The patient was also having melanotic stools. Her blood work in the ED showed a hemoglobin of 3.8 with a MCV of 90 and a white cell count 12.7. Her creatinine was at 5.1 with a BUN of 115. Serum bicarb was 16 with anion gap of 13. Blood sugar was at 250. Calcium was at 8.2. Stool occult was positive for blood. EKG showing sinus tachycardia with premature atrial complexes and left axis deviation and the nonspecific intra ventricular block. Based on this rectal exam was also done that showed black stool. The patient was ordered for 2 units of packed RBC transfusion. Nephrology was involved and diuresis will be arranged for this patient. Meanwhile, the patient will be transferred to the intensive care unit for further care. The patient had a similar admission back in 11/07/2018 which she came into the hospital because of severe symptomatically anemia and hemoglobin of 4.9 requiring 3 units of packed red was a transfusion. She had a endoscopy and colonoscopy that showed large duodenal bulbar ulcer measuring at least 3-4 cm in size without any evidence of acute bleeding. The patient was also found to have mild gastritis. The patient was given Protonix 40 mg twice a day and she was advised to avoid nonsteroidal anti-inflammatory medication. The patient is seen today 11/20/2018 in follow-up in the intensive care unit. He is currently awake and alert in no acute distress. He's only complaint today is that of being hungry. He is also asking to go home. Denies any worsening shortness of breath, cough or congestion. Chest x-ray reveals low lung volumes and cardiomegaly with central vascular congestion and small bilateral effusions favoring CHF versus fluid volume overload. Underlying by basilar infiltrate/atelectasis is noted. Left basilar findings are new. He is ma intaining good O2 saturations up to 100% on 2 L/m per nasal cannula. He is been hemodynamically stable. He is status post 3 units of packed red blood cell transfusions. Current hemoglobin 6.1. White count 8.8. Creatinine 3.15. He is currently on ceftriaxone, IV Protonix. Desmopressin has been discontinued. The patient is seen today 11/21/2018 in follow-up in the intensive care unit. He is currently awake and alert in no acute distress. He is maintaining good O2 saturations in the mid 90s on 2 L/m per nasal cannula. He's been afebrile. Hemodynamically stable. Blood culture reveals no growth thus far. Urine culture pending. White count 6.5. Hemoglobin 6.4. Creatinine 2.75. He has received 4 units of packed red blood cells thus far. Fifth is ordered for today. He had received hemodialysis 2 days in a row. They will do it again tomorrow. He remains on ceftriaxone. He is on Aranesp. Protonix 40 mg IV twice a day. Carafate. No active bleeding noted. Currently nothing by mouth. The patient is seen today 11/22/2017 in follow-up in the intensive care unit. He remains awake and alert in no acute distress. He is maintaining good O2 saturations in the 90s on 2 L/m per nasal cannula. He is afebrile. No active bleeding. Hemoglobin today 7.9. He is receiving hemodialysis. Crit and 3.36. He remains on ceftriaxone. Objective - Vital Signs Vital signs: Vital Signs Temp 97.9 F 11/22/18 10:59 Pulse 83 11/22/18 11:00 Resp 22 11/22/18 11:00 BP 143/75 11/22/18 11:00 Pulse Ox 94 L 11/22/18 11:00 Intake & Output 11/21/18 11/22/18 11/22/18 18:59 06:59 18:59 Intake Total 061 963 0946 Output Total 907 520 2311 Balance 270 170 995 Weight 96.6 kg Intake: IV 200 120 60 Sodium Chloride 0.9% 1, 150 120 60 000 ml @ 20 mls/hr IV . Q24H [facility] Rx#:[id number] cefTRIAXone 1 gm In 50 Sodium Chloride 0.9% 50 ml @ 100 mls/hr IVPB Q24HR [facility] Rx#:[id number] Intake, IV Titration 50 Amount cefTRIAXone 1 gm In 50 Sodium Chloride 0.9% 50 ml @ 100 mls/hr IVPB Q24HR [facility] Rx#:[id number] Oral 1200 Blood Product 310 Rc As-1 Unit 310 [id number] Output: Urine 240 290 105 Hemodialysis 2200 Other: Voiding Method Indwelling Catheter Indwelling Catheter Indwelling Catheter - Exam General appearance: Pleasant 68-year-old gentleman that is alert, oriented, in no acute distress. On 2 L nasal cannula. Head exam was generally normal. There was no scleral icterus or corneal arcus. Mucous membranes were moist.. Neck: Supple without lymphadenopathy. Trachea midline. Heart: S1 S2. Regular rate and rhythm. Lungs: Crackles in the bilateral posterior bases. Abdomen: Soft, nontender, nondistended with bowel sounds. No peritoneal signs. No palpable organomegaly or masses. Extremities: Normal skin color and turgor. No cyanosis, rash, ulceration, clubbing, or edema. Radial and pedal pulses are 2/4 bilaterally. Neurological: No focal deficits. Strength and sensation are grossly intact. Examination of the skin revealed no evidence of significant rashes, suspicious appearing nevi or other concerning lesions. - Labs CBC & Chem 7: 11/22/18 05:30 11/22/18 05:30 Labs: Abnormal Lab Results - Last 24 Hours (Table) 11/19/18 11/21/18 11/21/18 Range/Units 09:10 05:40 15:20 RBC 2.62 L (4.30-5.90) m/uL Hgb 7.7 L (13.0-17.5) gm/dL Hct 24.3 L (39.0-53.0) % RDW 17.2 H (11.5-15.5) % Sodium (137-145) mmol/L BUN (9-20) mg/dL Creatinine (0.66-1.25) mg/dL Glucose (74-99) mg/dL Calcium (8.4-10.2) mg/dL Iron 15 L (65-175) ug/dL Crossmatch See Detail 11/22/18 11/22/18 Range/Units 05:30 05:30 RBC 2.65 L (4.30-5.90) m/uL Hgb 7.9 L (13.0-17.5) gm/dL Hct 24.6 L (39.0-53.0) % RDW 17.1 H (11.5-15.5) % Sodium 135 L (137-145) mmol/L BUN 34 H (9-20) mg/dL Creatinine 3.36 H (0.66-1.25) mg/dL Glucose 158 H (74-99) mg/dL Calcium 7.9 L (8.4-10.2) mg/dL Iron (65-175) ug/dL Crossmatch Microbiology - Last 24 Hours (Table) 11/19/18 20:43 Blood Culture - Preliminary Blood No Growth after 48 hours 11/19/18 22:30 Urine Culture - Final Urine,Catheterized Assessment and Plan Assessment: Impression: 1 upper GI bleeding with profound anemia and bloody stool and hemoglobin of 3.8. The patient was scoped on 11/07/2018 and the findings were consistent with a large duodenal ulcer that was not bleeding at that time. The patient also has some mild antral gastritis. Hemoglobin currently 7.9. Status post 5 units packed red blood cells thus far. 2 chronic renal failure, dialysis dependent patient has calluses Monday, none today. Resume Monday tomorrow. 3 History of colon cancer status post resection. 4 Hyperlipidemia. 5 Hypertension. 6 Diabetes mellitus. 7 Glaucoma. 8 Diabetic retinopathy. 9 Chronic kidney disease. 10 Anemia of chronic disease. 11 History of cellulitis and osteomyelitis. 12 previous lower extremity venous stasis ulcers and amputation. Plan The patient was seen and evaluated by Dr. Mcgill. He is stable for transfer out of the intensive care unit today. We'll continue to follow. I, the cosigning physician, performed a history & physical examination of the patient. Lungs sounds with crackles in the bilateral posterior bases. Maintaining good O2 saturations in the 90s on 2 L/m per nasal cannula. I discussed the assessment and plan of care with my nurse practitioner, Riya Sorto. I attest to the above note as dictated by her.
--- NOTE | 2018-11-22 14:34 | P.PN ---
Subjective Progress Note Date: 11/22/18 CHIEF COMPLAINT: GI bleed HISTORY OF PRESENT ILLNESS: 68-year-old male who was admitted to the hospital secondary to GI bleed. Patient was recently hospitalized and underwent EGD with findings of a large nonbleeding 3-4 cm duodenal bulb ulcer on 2017. Colonoscopy was ordered at that time. Not complete bowel prep. Patient presents back to the hospital with a hemoglobin of 3.8. Patient has received 5 units of RBCs since admission. Patient examined this morning in the intensive care unit. He is currently undergoing hemodialysis. Patient currently denies abdominal pain. He denies hematemesis, hematochezia, or melena. Hemoglobin 7.9. PHYSICAL EXAM: VITAL SIGNS: Reviewed. GENERAL: Well-developed in no acute distress. HEENT: No sclera icterus. Extraocular movements grossly intact. Moist buccal mucosa. Head is atraumatic, normocephalic. ABDOMEN: Soft. Nondistended. Nontender. NEUROLOGIC: Alert and oriented. Cranial nerves II through XII grossly intact. ASSESSMENT: 1. Acute blood loss anemia 2. Recent EGD revealing large 3-4cm nonbleeding duodenal ulcer PLAN: Continue to monitor hemoglobin. Protonix IV BID. Recommendations from a surgery standpoint include transfer to a tertiary center for possible embolization if patient continues require RBC transfusions or develops active bleeding. Nurse practitioner note has been reviewed by physician. Signing provider agrees with the documented findings, assessment, and plan of care. Objective - Vital Signs Vital signs: Vital Signs Temp 98.0 F 11/22/18 12:00 Pulse 69 11/22/18 12:00 Resp 20 11/22/18 12:00 BP 143/75 11/22/18 12:00 Pulse Ox 96 11/22/18 12:00 Intake & Output 11/21/18 11/22/18 11/22/18 18:59 06:59 18:59 Intake Total 146 585 9435 Output Total 650 152 7290 Balance 270 170 985 Weight 96.6 kg Intake: IV 200 120 70 Sodium Chloride 0.9% 1, 150 120 70 000 ml @ 20 mls/hr IV . Q24H [facility] Rx#:[id number] cefTRIAXone 1 gm In 50 Sodium Chloride 0.9% 50 ml @ 100 mls/hr IVPB Q24HR [facility] Rx#:[id number] Intake, IV Titration 50 Amount cefTRIAXone 1 gm In 50 Sodium Chloride 0.9% 50 ml @ 100 mls/hr IVPB Q24HR [facility] Rx#:[id number] Oral 1200 Blood Product 310 Rc As-1 Unit 310 [id number] Output: Urine 240 290 105 Hemodialysis 2200 Other: Voiding Method Indwelling Catheter Indwelling Catheter Indwelling Catheter - Labs CBC & Chem 7: 11/22/18 05:30 11/22/18 05:30 Labs: Abnormal Lab Results - Last 24 Hours (Table) 11/21/18 11/21/18 11/22/18 Range/Units 05:40 15:20 05:30 RBC 2.62 L 2.65 L (4.30-5.90) m/uL Hgb 7.7 L 7.9 L (13.0-17.5) gm/dL Hct 24.3 L 24.6 L (39.0-53.0) % RDW 17.2 H 17.1 H (11.5-15.5) % Sodium (137-145) mmol/L BUN (9-20) mg/dL Creatinine (0.66-1.25) mg/dL Glucose (74-99) mg/dL Calcium (8.4-10.2) mg/dL Iron 15 L (65-175) ug/dL 11/22/18 Range/Units 05:30 RBC (4.30-5.90) m/uL Hgb (13.0-17.5) gm/dL Hct (39.0-53.0) % RDW (11.5-15.5) % Sodium 135 L (137-145) mmol/L BUN 34 H (9-20) mg/dL Creatinine 3.36 H (0.66-1.25) mg/dL Glucose 158 H (74-99) mg/dL Calcium 7.9 L (8.4-10.2) mg/dL Iron (65-175) ug/dL Microbiology - Last 24 Hours (Table) 11/19/18 20:43 Blood Culture - Preliminary Blood No Growth after 48 hours
[2018-11-22] MEDS: CARVEDILOL 6.25 MG TAB PO SCH (17:48)
[2018-11-22 20:12] LABS: Anisocytosis Slight; HCT 26.9 % (39.0-53.0); HGB 8.7 gm/dL (13.0-17.5); Hypochromasia Moderate; MCH 30.8 pg (25.0-35.0); MCHC 32.3 g/dL (31.0-37.0); MCV 95.3 fL (80.0-100.0); Macrocytosis Slight; Mean Platelet Volume 8.4; Platelet Count 198 k/uL (150-450); Poikilocytosis Slight; RBC 2.82 m/uL (4.30-5.90); RDW 17.3 % (11.5-15.5); WBC 7.2 k/uL (3.8-10.6)
[2018-11-22] MEDS: PRAVASTATIN SODIUM 20 MG TAB PO SCH (20:31)
--- NOTE | 2018-11-22 23:36 | P.PN ---
Subjective Progress Note Date: 11/22/18 Principal diagnosis: Duodenal ulcer, acute blood loss anemia Patient seen lying in bed denying any bowel movements today. No abdominal pain reported. No signs or symptoms of GI bleeding. He has tolerated advancement in his diet. Objective - Vital Signs Vital signs: Vital Signs Temp 97.5 F L 11/22/18 21:43 Pulse 64 11/22/18 21:43 Resp 20 11/22/18 21:43 BP 161/75 11/22/18 21:43 Pulse Ox 95 11/22/18 21:43 Intake & Output 11/22/18 11/22/18 11/23/18 06:59 18:59 06:59 Intake Total 120 1840 Output Total 290 2356 Balance -170 -516 Weight 96.6 kg Intake: IV 120 110 Sodium Chloride 0.9% 1, 120 110 000 ml @ 20 mls/hr IV . Q24H [facility] Rx#:[id number] Intake, IV Titration 50 Amount cefTRIAXone 1 gm In 50 Sodium Chloride 0.9% 50 ml @ 100 mls/hr IVPB Q24HR [facility] Rx#:[id number] Oral 1680 Output: Urine 290 155 Stool 1 Hemodialysis 2200 Other: Voiding Method Indwelling Catheter Indwelling Catheter # Voids 0 - Exam On physical examination, patient appears comfortable in no apparent distress. HEAD: Normocephalic, atraumatic. EYES: No scleral icterus. No conjunctival injection. MOUTH: No lesions, tongue midline. NECK: Trachea midline, no gross abnormalities. CHEST: Decreased air entry bilaterally. HEART: S1-S2 appreciated. ABDOMEN: Soft, obese. Bowel sounds are positive. No organomegaly. No guarding or rigidity. EXTREMITIES: Mild bilateral pedal edema. SKIN: No rashes, no jaundice. NEUROLOGIC: Alert and oriented x3. No focal deficits. - Labs CBC & Chem 7: 11/22/18 19:33 11/22/18 05:30 Labs: Abnormal Lab Results - Last 24 Hours (Table) 11/22/18 11/22/18 11/22/18 Range/Units 05:30 05:30 19:33 RBC 2.65 L 2.82 L (4.30-5.90) m/uL Hgb 7.9 L 8.7 L (13.0-17.5) gm/dL Hct 24.6 L 26.9 L (39.0-53.0) % RDW 17.1 H 17.3 H (11.5-15.5) % Sodium 135 L (137-145) mmol/L BUN 34 H (9-20) mg/dL Creatinine 3.36 H (0.66-1.25) mg/dL Glucose 158 H (74-99) mg/dL Calcium 7.9 L (8.4-10.2) mg/dL Microbiology - Last 24 Hours (Table) 11/19/18 20:43 Blood Culture - Preliminary Blood No Growth after 72 hours Assessment and Plan (1) Acute blood loss anemia Narrative/Plan: 68-year-old male with a history of end-stage renal disease on hemodialysis and recent hospitalization for severe symptomatic anemia status post EGD with findings of a large nonbleeding 3-4 cm duodenal bulb ulcer. Colonoscopy was also attempted at that time an incomplete as the patient refused bowel prep. Presenting with recurrent anemia of acute blood loss was elevated BUN and creatinine and a positive guaiac. Today hemoglobin is stable at 7.9 from 7.7 previously. Current Visit: Yes Status: Acute Code(s): D62 - ACUTE POSTHEMORRHAGIC ANEMIA SNOMED Code(s): 213444194 (2) Guaiac positive stools Current Visit: Yes Status: Acute Code(s): R19.5 - OTHER FECAL ABNORMALITIES SNOMED Code(s): 35484752 (3) Duodenal ulcer Current Visit: No Status: Acute Code(s): K26.9 - DUODENAL ULCER, UNSP ACUTE OR CHRONIC, W/O HEMOR OR PERF SNOMED Code(s): 80374159 Plan: Supportive care Okay for low fiber renal diet Continue to monitor hemoglobin and hematocrit and transfuse as needed Continue Protonix 40 mg IV twice daily Given size and location of patient's ulcerative recurrent signs or symptoms of GI bleeding occurs or patient has fall in hemoglobin patient would benefit from referral to tertiary center where a CT angiography with correlating or surgical intervention could be performed Continue other medical management Thank you for allowing us to participate in the care of this patient, the gastroenterology service will stand by, please call us back with any questions or concerns
--- NOTE | 2018-11-23 07:21 | P.PN ---
Subjective This is a pleasant 68 years old male with past medical history of diabetes mellitus, hypertension, hyperlipidemia, diabetic neuropathy, bilateral glaucoma, chronic kidney disease, history of colon cancer status post surgical resection. He was recently discharged from the hospital for altered mental status of unclear etiology. His mental status is reported improved after patient was started on hemodialysis last time. He underwent removal of 1200 L of fluid from his right sided pleural effusion via thoracocentesis. And he was started on he modialysis recently on 11/14/2018. Patient presents with missed hemodialysis and possible worsening mental status. Patient poor historian. On presentation he was mildly tachycardic at 104, blood pressure 110/53, saturating 94% on room air. His afebrile.. He is afebrile. Labs showing severe anemia with hemoglobin 3.5, WBC 11.1 K, platelet count within normal. Creatinine 5.14, sodium 134. Occult blood in the stool is positive. EKG shows sinus tachycardia with PACs, heart rate is 106. QTC 423. The emergency room patient was started on Protonix. Patient is getting currently 2 units of blood transfusion. 11/20/2018 Patient wasn't awake, no new complaint. No chest pain or dyspnea. Denies abdominal pain. Last bowel movement he still have some blood in it. No dysuria or change in frequency. Patient is afebrile are more than 24 hours. Hemoglobin is 6.1, the WBC is 8.8. UA is suspicious of infection. Urine culture is pending. However her fever subsided and her leukocytosis came back to normal so we'll keep on ceftriaxone for now. Following the culture results. Patient is getting hemodialysis today. GI team are following the case. Patient looks like he had large nonbleeding 3-4 cm duodenal ulcer on recent EGD. GI team recommended surgery consult or transferring to a tertiary center if bleeding continues or recurs. No plan for EGD now as per GI 11/21/2018 Patient remains in the ICU for GI bleed and possible UTI. Patient with history of 3-4 cm duodenal ulcer on recent EGD. His hemoglobin is lower compared to yesterday from 7.1 down to 6.4. Patient is given 1 units of blood transfusion today. Hemodynamically he is stable. Potassium 3.3, creatinine is 2.75, urine culture showing no growth. Patient is still on hemodialysis and nephrology team are following. Surgery team has been consulted as he's needing deficient of blood transfusion today. Patient remains on ceftriaxone and Protonix twice daily. Carafate is added. Coreg and Norvasc and glipizide on hold. Final urine culture shows no growth 11/22/2018 Patient remains in the ICU, awake with no chest pain or dyspnea. No abdominal pain. Today he is getting hemodialysis. Blood pressure 159/70 and saturation 94% on 2 L. Hemoglobin today is 7.9. Surgical team of been consulted and they recommended no surgical intervention and to transfer the patient to tertiary center if he needs embolization in case of more bleeding Final urine culture shows no growth in blood culture is negative. No fever for more than 72 hours. However we'll continue with ceftriaxone for possible right pneumonia on the chest x-ray. Patient with hypertensive today we may start his home dose of Coreg 6.25 twice a day. He is saturating 94% and 2 L oxygen via NC. 11/23/2018 is in the general medical floor today. He is clinically stable looks the same from yesterday and improving gradually. He denies chest pain or abdominal pain. Breathing is quiet. Vitas looks stable. Blood pressure on the high side 178/83, we'll start his Norvasc back. Hemoglobin yesterday was 8.7, and patient states that he has no more blood in the stool however he has black colored stool this morning, when confronted with staff and they stated it was small amounts. Going to check hemoglobin today. We'll check with other services patient is a stable and can discharge him tomorrow to his place at [facility] Objective - Vital Signs Vital signs: Vital Signs Temp 97.7 F 11/23/18 06:11 Pulse 73 11/23/18 06:11 Resp 17 11/23/18 06:11 BP 178/83 11/23/18 06:11 Pulse Ox 95 11/23/18 06:11 Intake & Output 11/22/18 11/23/18 11/23/18 18:59 06:59 18:59 Intake Total 1840 Output Total 2356 Balance -516 Intake: IV 110 Sodium Chloride 0.9% 1, 110 000 ml @ 20 mls/hr IV . Q24H [facility] Rx#:[id number] Intake, IV Titration 50 Amount cefTRIAXone 1 gm In 50 Sodium Chloride 0.9% 50 ml @ 100 mls/hr IVPB Q24HR [facility] Rx#:[id number] Oral 1680 Output: Urine 155 Stool 1 Hemodialysis 2200 Other: Voiding Method Indwelling Catheter # Voids 1 # Bowel Movements 1 - Exam GENERAL: The patient is alert and oriented x1-2, not in any acute distress. Well developed, well nourished. HEENT: Pupils are round and equally reacting to light. EOMI. No scleral icterus. No conjunctival pallor. Normocephalic, atraumatic. No pharyngeal erythema. No thyromegaly. CARDIOVASCULAR: S1 and S2 present. No murmurs, rubs, or gallops. PULMONARY: Chest is clear to auscultation, no wheezing or crackles. ABDOMEN: Soft, nontender, nondistended, normoactive bowel sounds. No palpable organomegaly. MUSCULOSKELETAL: No joint swelling or deformity. EXTREMITIES: No cyanosis, clubbing, or pedal edema. NEUROLOGICAL: Gross neurological examination did not reveal any focal deficits. SKIN: No rashes. - Labs CBC & Chem 7: 11/22/18 19:33 11/22/18 05:30 Labs: Abnormal Lab Results - Last 24 Hours (Table) 11/22/18 Range/Units 19:33 RBC 2.82 L (4.30-5.90) m/uL Hgb 8.7 L (13.0-17.5) gm/dL Hct 26.9 L (39.0-53.0) % RDW 17.3 H (11.5-15.5) % Microbiology - Last 24 Hours (Table) 11/19/18 20:43 Blood Culture - Preliminary Blood No Growth after 72 hours Assessment and Plan Assessment: Acute GI bleed. Recent history of nonbleeding 3-4 cm duodenal ulcer Severe anemia, mostly acute blood loss anemia Altered mental status, mostly metabolic encephalopathy. Improved Possible urinary tract infection, patient finish antibiotic course End-stage kidney disease on hemodialysis Diabetes mellitus Essential hypertension Hyperlipidemia Diabetic neuropathy History of bilateral rectal, Chronic kidney disease History of colon cancer status post surgical resection Plan: This is a pleasant 68 years male who presents with severe anemia with occult blood positive stools. Continue with Protonix, blood transfusion as needed, GI consult not planning to do EGD, and if bleeding continues and transferred to tertiary center or call surgical consult. call surgical team for consult. Continue with hemodialysis as per nephrology team. Pulmonary critical care input is appreciated. Labs and medication were reviewed.. Continue same treatment. Continue with symptomatic treatment. Resume home medication. Monitor lytes and vitals. DVT and GI prophylaxis. Further recommendations of the clinical course of the patient DVT prophylaxis: No anticoagulation and review of GI bleed GI Prophylaxis: Protonix Prognosis is guarded
[2018-11-23] MEDS: CARVEDILOL 6.25 MG TAB PO SCH ×2 (08:33→16:38)
[2018-11-23] MEDS: SUCRALFATE 1 GM TAB PO SCH ×2 (08:33→16:38)
[2018-11-23] MEDS: amLODIPine 10 MG TAB PO SCH (08:33)
[2018-11-23] MEDS: TIMOLOL 0.5% OPHTH DROPS 5 ML BTL BOTH EYES SCH ×2 (08:34→21:14)
[2018-11-23] MEDS: PANTOPRAZOLE 40 MG/10 ML VIAL IV SCH ×2 (08:34→21:07)
[2018-11-23] MEDS: SODIUM CHLORIDE 0.9% 1,000 ML IV SCH (11:40)
--- NOTE | 2018-11-23 11:58 | P.PN ---
<Nellie Pinto Ramiro - Last Filed: 11/23/18 11:56> Subjective Progress Note Date: 11/23/18 CHIEF COMPLAINT: GI bleed HISTORY OF PRESENT ILLNESS: 68-year-old male who was admitted to the hospital secondary to GI bleed. Patient was recently hospitalized and underwent EGD with findings of a large nonbleeding 3-4 cm duodenal bulb ulcer on 11/07/2017. Colonoscopy was ordered at that time. Not complete bowel prep. Patient presents back to the hospital with a hemoglobin of 3.8. Patient has received 5 units of RBCs since admission. Patient examined this morning at the bedside. Patient currently denies abdominal pain. He denies hematemesis, hematochezia, or melena. Hemoglobin 8.7 yesterday. No repeat this morning. PHYSICAL EXAM: VITAL SIGNS: Reviewed. GENERAL: Well-developed in no acute distress. HEENT: No sclera icterus. Extraocular movements grossly intact. Moist buccal mucosa. Head is atraumatic, normocephalic. ABDOMEN: Soft. Nondistended. Nontender. NEUROLOGIC: Alert and oriented. Cranial nerves II through XII grossly intact. ASSESSMENT: 1. Acute blood loss anemia 2. Recent EGD revealing large 3-4cm nonbleeding duodenal ulcer PLAN: Continue to monitor hemoglobin. Protonix IV BID. Recommendations from a surgery standpoint include transfer to a tertiary center for possible embolization if patient continues require RBC transfusions or develops active bleeding. We will sign off at this time. Please reconsult if needed. Nurse practitioner note has been reviewed by physician. Signing provider agrees with the documented findings, assessment, and plan of care. Objective - Vital Signs Vital signs: Vital Signs Temp 97.7 F 11/23/18 06:11 Pulse 73 11/23/18 06:11 Resp 17 11/23/18 06:11 BP 178/83 11/23/18 06:11 Pulse Ox 95 11/23/18 06:11 Intake & Output 11/22/18 11/23/18 11/23/18 18:59 06:59 18:59 Intake Total 1840 Output Total 2356 Balance -516 Intake: IV 110 Sodium Chloride 0.9% 1, 110 000 ml @ 20 mls/hr IV . Q24H [facility] Rx#:[id number] Intake, IV Titration 50 Amount cefTRIAXone 1 gm In 50 Sodium Chloride 0.9% 50 ml @ 100 mls/hr IVPB Q24HR [facility] Rx#:[id number] Oral 1680 Output: Urine 155 Stool 1 Hemodialysis 2200 Other: Voiding Method Indwelling Catheter # Voids 1 # Bowel Movements 1 - Labs CBC & Chem 7: 11/22/18 19:33 11/22/18 05:30 Labs: Abnormal Lab Results - Last 24 Hours (Table) 11/22/18 Range/Units 19:33 RBC 2.82 L (4.30-5.90) m/uL Hgb 8.7 L (13.0-17.5) gm/dL Hct 26.9 L (39.0-53.0) % RDW 17.3 H (11.5-15.5) % Microbiology - Last 24 Hours (Table) 11/19/18 20:43 Blood Culture - Preliminary Blood No Growth after 72 hours <Chaitanya Dey - Last Filed: 11/23/18 16:11> Subjective As above. Patient with large duodenal ulcer. Hemoglobin stable. Has had ongoing black stools at times. We'll sign off. Objective - Vital Signs Vital signs: Vital Signs Temp 97.2 F L 11/23/18 15:20 Pulse 73 11/23/18 15:20 Resp 16 11/23/18 15:20 BP 135/65 11/23/18 15:20 Pulse Ox 100 11/23/18 15:20 Intake & Output 11/22/18 11/23/18 11/23/18 18:59 06:59 18:59 Intake Total 1840 50 Output Total 2356 Balance -516 50 Intake: IV 110 50 Sodium Chloride 0.9% 1, 110 000 ml @ 20 mls/hr IV . Q24H [facility] Rx#:[id number] cefTRIAXone 1 gm In 50 Sodium Chloride 0.9% 50 ml @ 100 mls/hr IVPB Q24HR [facility] Rx#:[id number] Intake, IV Titration 50 Amount cefTRIAXone 1 gm In 50 Sodium Chloride 0.9% 50 ml @ 100 mls/hr IVPB Q24HR [facility] Rx#:[id number] Oral 1680 Output: Urine 155 Stool 1 Hemodialysis 2200 Other: Voiding Method Indwelling Catheter # Voids 1 # Bowel Movements 1 - Labs CBC & Chem 7: 11/22/18 19:33 11/22/18 05:30 Labs: Abnormal Lab Results - Last 24 Hours (Table) 11/22/18 Range/Units 19:33 RBC 2.82 L (4.30-5.90) m/uL Hgb 8.7 L (13.0-17.5) gm/dL Hct 26.9 L (39.0-53.0) % RDW 17.3 H (11.5-15.5) % Microbiology - Last 24 Hours (Table) 11/19/18 20:43 Blood Culture - Preliminary Blood No Growth after 72 hours
--- NOTE | 2018-11-23 14:27 | P.PN ---
Subjective Patient is seen in follow-up for end-stage renal disease. He is maintained on hemodialysis on a Monday schedule. Patient has received 5 units of blood so far. Hemoglobin 8.7 this morning. Patient denies any active bleeding. He is eager to be discharged. Vital signs are stable. General: The patient appeared well nourished and normally developed. HEENT: Head exam is unremarkable. Neck is without jugular venous distension. LUNGS: Lungs are clear to auscultation and percussion. Breath sounds decreased. HEART: Rate and Rhythm are regular. First and second heart sounds normal. No murmurs, rubs or gallops. ABDOMEN: Abdominal exam reveals normal bowel sounds. Non-tender and non- distended. No evidence of peritonitis. EXTREMITITES: No clubbing, cyanosis, or edema. Objective - Vital Signs Vital signs: Vital Signs Temp 97.7 F 11/23/18 06:11 Pulse 73 11/23/18 06:11 Resp 17 11/23/18 06:11 BP 178/83 11/23/18 06:11 Pulse Ox 95 11/23/18 06:11 Intake & Output 11/22/18 11/23/18 11/23/18 18:59 06:59 18:59 Intake Total 1840 50 Output Total 2356 Balance -516 50 Intake: IV 110 50 Sodium Chloride 0.9% 1, 110 000 ml @ 20 mls/hr IV . Q24H [facility] Rx#:[id number] cefTRIAXone 1 gm In 50 Sodium Chloride 0.9% 50 ml @ 100 mls/hr IVPB Q24HR [facility] Rx#:[id number] Intake, IV Titration 50 Amount cefTRIAXone 1 gm In 50 Sodium Chloride 0.9% 50 ml @ 100 mls/hr IVPB Q24HR [facility] Rx#:[id number] Oral 1680 Output: Urine 155 Stool 1 Hemodialysis 2200 Other: Voiding Method Indwelling Catheter # Voids 1 # Bowel Movements 1 - Labs CBC & Chem 7: 11/22/18 19:33 11/22/18 05:30 Labs: Abnormal Lab Results - Last 24 Hours (Table) 11/22/18 Range/Units 19:33 RBC 2.82 L (4.30-5.90) m/uL Hgb 8.7 L (13.0-17.5) gm/dL Hct 26.9 L (39.0-53.0) % RDW 17.3 H (11.5-15.5) % Microbiology - Last 24 Hours (Table) 11/19/18 20:43 Blood Culture - Preliminary Blood No Growth after 72 hours Assessment and Plan Plan: Assessment: 1. End-stage renal disease maintained on hemodialysis on a Monday schedule. 2. Diastolic CHF with trace tricuspid regurgitation. 3. Volume overload. Better with ultrafiltration. 4. Acute blood loss anemia status post 5 units of blood transfusion. Hemoglobin 8.7. Status post IV DDAVP and November 19. GI following. Also on Aranesp. 5. Hypokalemia due to low potassium dialysate. Improved. 6. Duodenal ulcer. No active bleeding noted during last endoscopy done November 07. Plan: Hemodialysis tomorrow.
[2018-11-23] MEDS: PRAVASTATIN SODIUM 20 MG TAB PO SCH (21:07)
--- NOTE | 2018-11-24 07:10 | XR ---
EXAMINATION TYPE: XR chest 1V DATE OF EXAM: 11/24/2018 HISTORY: Shortness of breath. REFERENCE: Previous study dated 11/22/2018. FINDINGS: There is a large-bore, double-lumen catheter in place via a right internal jugular approach . Its tip is at the cavoatrial junction. The heart is enlarged. There is vascular congestion and pulmonary edema. There is confluent opacity o f the right lung base. There is a right effusion. IMPRESSION: 1. CONFLUENT RIGHT BASILAR AIRSPACE DISEASE WITH CONCOMITANT EFFUSION. 2. MILD CHANGES OF CONGESTIVE HEART FAILURE.
[2018-11-24] MEDS ORDERED: PANTOPRAZOLE 40 MG TABLET PO SCH (07:30)
[2018-11-24] MEDS: TIMOLOL 0.5% OPHTH DROPS 5 ML BTL BOTH EYES SCH (07:50)
[2018-11-24] MEDS: SUCRALFATE 1 GM TAB PO SCH (07:51)
--- NOTE | 2018-11-24 10:50 | P.PN ---
Subjective Progress Note Date: 11/24/18 Seen and examined for the follow-up of ESRD. Tolerated dialysis well today. No nausea vomiting diarrhea. Currently eating breakfast Objective - Vital Signs Vital signs: Vital Signs Temp 98 F 11/24/18 10:39 Pulse 65 11/24/18 10:39 Resp 16 11/24/18 10:39 BP 140/73 11/24/18 10:39 Pulse Ox 92 L 11/24/18 04:35 Intake & Output 11/23/18 11/24/18 11/24/18 18:59 06:59 18:59 Intake Total 50 Output Total 2 Balance 50 -2 Intake: IV 50 cefTRIAXone 1 gm In 50 Sodium Chloride 0.9% 50 ml @ 100 mls/hr IVPB Q24HR [facility] Rx#:[id number] Output: Urine 0 Stool 2 Other: Voiding Method Indwelling Catheter # Voids 1 # Bowel Movements 1 - Exam No acute distress S1-S2 heard Decreased breath sounds Right jugular permacath No edema - Labs CBC & Chem 7: 11/22/18 19:33 11/22/18 05:30 Labs: Microbiology - Last 24 Hours (Table) 11/19/18 20:43 Blood Culture - Preliminary Blood No Growth after 96 hours Assessment and Plan Assessment: #1 ESRD, TTS schedule #2 diastolic CHF #3 acute blood loss anemia status post 5 units of PRBC hemoglobin stable. Suspect GI bleed #4 metabolic bone disease with ESRD #5 hypertension with ESRD Plan: #1 next hemodialysis Monday. #2 ESRD medications
[2018-11-24] MEDS: CARVEDILOL 6.25 MG TAB PO SCH (11:15)
[2018-11-24] MEDS: amLODIPine 10 MG TAB PO SCH (11:15)
[2018-11-24] MEDS: SODIUM CHLORIDE 0.9% 1,000 ML IV SCH (11:15)
--- NOTE | 2018-11-24 13:44 | P.DS ---
Providers Date of admission: 11/19/18 11:22 Attending physician: Sheri Ortiz Consults: 11/19/18 11:18 Consult Physician Routine Consulting Provider: Bj Newby Consult Reason/Comments: need HD Do you want consulting provider notified?: Already Contacted 11/19/18 11:22 Consult Physician Routine Consulting Provider: Julia Mcgill Consult Reason/Comments: icu patient Do you want consulting provider notified?: Already Contacted 11/21/18 09:18 Consult Physician Routine Consulting Provider: Joseph Champagne Consult Reason/Comments: GIB, anemia, duodenal ulcer Do you want consulting provider notified?: Yes Primary care physician: [facility] Course: Discharge diagnoses Acute GI bleed. Recent history of nonbleeding 3-4 cm duodenal bulb ulcer Severe anemia, mostly acute blood loss anemia, hemoglobin stable Altered mental status, mostly metabolic encephalopathy. Improved Possible urinary tract infection End-stage kidney disease on hemodialysis, his getting dialysis Monday, and Monday Diabetes mellitus Essential hypertension Hyperlipidemia Diabetic neuropathy History of bilateral rectal, Chronic kidney disease History of colon cancer status post surgical resection Hospital course This is a pleasant 68 years old male with past medical history of diabetes mellitus, hypertension, hyperlipidemia, diabetic neuropathy, bilateral glaucoma, chronic kidney disease, history of colon cancer status post surgical resection. He was recently discharged from the hospital for altered mental status of unclear etiology. His mental status is reported improved after patient was started on hemodialysis last time. He underwent removal of 1200 L of fluid from his right sided pleural effusion via thoracocentesis. And he was started on hemodialysis recently on 11/14/2018. Patient presents with missed hemodialysis and possible worsening mental status. Patient poor historian. Patient was found to have anemia with hemoglobin 3.8 on the presentation, he received 5 units of blood transfusion, his hemoglobin last time was checked was 8.7. No more episodes of GI bleed. Patient last bowel movement was yesterday with no blood in it. No bowel movements today so far. Patient's with no abdominal pain in his abdominal exam looks benign reactive no nausea vomiting and he is tolerating diet well. Patient has been evaluated by both GI and general surgery team and the recommended if patient rebleeds again he needs to be transferred to a tertiary care center like [facility] for possible embolization, Given size and location of patient's ulcer. Last time he had EGD:large nonbleeding 3-4 cm duodenal bulb ulcer. Patient also has been started on antibiotics for possible UTI and pneumonia. However upon discharge he has no urinary or respiratory symptoms except for mild dry cough. Patient denies chest pain or dyspnea. No urinary symptoms. Patient has also been followed by nephrology team as he's been getting hemodialysis through his right upper chest. He got hemodialysis today and his next dialysis is going to be . Patient was cleared for discharge by all consultants. Patient today was shocked and wants to be discharged back to his ECF. Patient has been monitored in the general medical floors for the last 3 days and he looks the same. Problems and management plan were discussed with the patient and he verbalized understanding and acceptance Patient was found stable and can be discharged home however he needs follow-up as an outpatient. If patient rebleeds again, then he would benefit from [facility] with correlating or surgical intervention could be performed Gen: patient is a AAOx3, no distress CVS: S1-S2, RRR, no murmur Lungs: B/L CTA, no wheezing Abdomen: soft, no distention, no tenderness, positive bowel sounds Extremity: no leg edema or induration Time spent more than 35 minutes Patient Condition at Discharge: Critical Plan - Discharge Summary Discharge Rx Participant: No New Discharge Prescriptions: No Action Pravastatin Sodium [Pravachol] 20 mg PO HS Sodium Bicarbonate Tab 650 mg PO BID Timolol 0.5% Ophth Soln [Timoptic 0.5% Ophth Soln] 1 drop BOTH EYES BID Ergocalciferol (Vitamin D2) [Drisdol] 50,000 unit PO SA Sucralfate [Carafate] 1 gm PO AC-BID #60 tab Carvedilol [Coreg] 6.25 mg PO BID #60 tablet Torsemide [Demadex] 20 mg PO DAILY #60 tab glipiZIDE XL [Glucotrol XL] 5 mg PO DAILY #30 tab.er.24 amLODIPine [Norvasc] 10 mg PO DAILY #30 tab Pantoprazole [Protonix] 40 mg PO DAILY@0700 Calcium Acetate [PhosLo] 667 mg PO AC-TID Discharge Medication List Pravastatin Sodium [Pravachol] 20 mg PO HS 03/21/14 [History] Sodium Bicarbonate Tab 650 mg PO BID 07/15/14 [History] Ergocalciferol (Vitamin D2) [Drisdol] 50,000 unit PO SA 11/04/18 [History] Timolol 0.5% Ophth Soln [Timoptic 0.5% Ophth Soln] 1 drop BOTH EYES BID 11/04/18 [History] Carvedilol [Coreg] 6.25 mg PO BID #60 tablet 11/08/18 [Rx] Sucralfate [Carafate] 1 gm PO AC-BID #60 tab 11/08/18 [Rx] Torsemide [Demadex] 20 mg PO DAILY #60 tab 11/08/18 [Rx] amLODIPine [Norvasc] 10 mg PO DAILY #30 tab 11/08/18 [Rx] glipiZIDE XL [Glucotrol XL] 5 mg PO DAILY #30 tab.er.24 11/08/18 [Rx] Calcium Acetate [PhosLo] 667 mg PO AC-TID 11/19/18 [History] Pantoprazole [Protonix] 40 mg PO DAILY@0700 11/19/18 [History] Follow up Appointment(s)/Referral(s): Stephanie Patel MD [Primary Care Provider] - 1-2 days
[2018-11-24 14:48] VITALS: BP 112/64; PULSE 75; RESP 20; TEMP 98.6
[2018-11-25] MEDS ORDERED: FOLIC ACID-VIT B COMPLEX-VIT C 1 CAP PO SCH (09:00)
== END 2018-11-24 16:00 | DRG 377 ==
LOC: EC 08:50 → 2SICU 11:22 → 4MS4W 11-22 18:50
PROVIDERS: ADMIT Hospitalist; ATTEND Hospitalist
PROC: 30233N1 Transfusion of Nonautologous Red Blood Cells into Peripheral Vein, Percutaneous Approach (ICD-10-PCS; 2018-11-21)
PROC: 5A1D70Z Performance of Urinary Filtration, Intermittent, Less than 6 Hours Per Day (ICD-10-PCS; principal; 2018-11-24)
DX: K26.4 Chronic or unspecified duodenal ulcer with hemorrhage (principal); G93.41 Metabolic encephalopathy; I50.33 Acute on chronic diastolic (congestive) heart failure; N18.6 End stage renal disease; D62 Acute posthemorrhagic anemia; E87.2 Acidosis; I13.2 Hypertensive heart and chronic kidney disease with heart failure and with stage 5 chronic kidney disease, or end stage renal disease; N17.9 Acute kidney failure, unspecified; E11.42 Type 2 diabetes mellitus with diabetic polyneuropathy; E11.319 Type 2 diabetes mellitus with unspecified diabetic retinopathy without macular edema; E11.39 Type 2 diabetes mellitus with other diabetic ophthalmic complication; E11.22 Type 2 diabetes mellitus with diabetic chronic kidney disease; H42 Glaucoma in diseases classified elsewhere; E78.5 Hyperlipidemia, unspecified; D63.8 Anemia in other chronic diseases classified elsewhere; E87.6 Hypokalemia; I45.4 Nonspecific intraventricular block; I49.1 Atrial premature depolarization; Z91.15 Patient's noncompliance with renal dialysis; Z79.84 Long term (current) use of oral hypoglycemic drugs; Z79.899 Other long term (current) drug therapy; Z85.038 Personal history of other malignant neoplasm of large intestine; Z99.2 Dependence on renal dialysis
CPT/HCPCS: 36415; 71045; 80048; 81001; 82272; 83540; 83735; 84132; 85025; 85027; 86850; 86900; 86901; 86920; 87040; 87086; 90935; 93005; 96374; 99285